=== PATIENT | male | born 1940 | race Caucasian/White ===

== ENCOUNTER 2016-08-28 07:45 | Day surgery (SDC) | payer MEDICARE, BC ==
[2016-08-26 10:16] VITALS: BMI 35.2
[~2016-08-28 07:45] MED LIST: LACTATED RINGERS 1,000 ML IV SCH
[2016-08-28 08:03] VITALS: RESP 16; TEMP 97.1
[2016-08-28] MEDS ORDERED: LIDOCAINE 1% 20 ML VIAL (10MG/ML) FOR IV START INTRADERMA ONE (08:08)
[2016-08-28 08:13] LABS: Glucose,Whole Blood 112 mg/dL (75-99)
[2016-08-28] MEDS ORDERED: PROPOFOL 10 MG/ML 20 ML VIAL IV ONE (08:43)
[2016-08-28] MEDS ORDERED: LIDOCAINE 1% INJ 10MG/ML (20 ML MDV) ONE (08:43)
--- NOTE | 2016-08-28 09:01 | P.PCN ---
Date of Procedure: 08/28/16 Procedure(s) Performed: BRIEF HISTORY: Patient is a 76-year-old pleasant white male, scheduled for an elective colonoscopy as a part of screening for colorectal neoplasia. PROCEDURE PERFORMED: Colonoscopy with biopsy. PREOPERATIVE DIAGNOSIS: Training for colon cancer. IV sedation per Anesthesia. PROCEDURE: After informed consent was obtained, the patient, was brought into the endoscopy unit. IV conscious sedation was administered by Anesthesia under continuous monitoring. Initially the Olympus CF-160 flexible video colonoscope was then inserted in the rectum, gradually advanced into the cecum without any difficulty. Careful examination was performed as the scope was gradually being withdrawn. Ileocecal valve and the appendiceal orifice were visualized and appeared normal. Prep was excellent. Mucosa of the cecum appeared normal. In the ascending colon there were 2 polyps measuring 5 mm in size both of which were removed by biopsy. Rest of the, ascending colon, transverse colon, descending colon, sigmoid colon, and rectum appeared normal. Retroflexion was performed in the rectum and no lesions were seen. The patient tolerated the procedure well. IMPRESSION: 5 mm 2 ascending colon polyps status post removal by biopsy. Rest of the colon appeared normal. RECOMMENDATIONS: Findings of this examination were discussed with the patient well as his family. He was advised to follow with the biopsy results. If the biopsy shows a tubular adenoma he can have a repeat colonoscopy in 3-5 years
[2016-08-28 09:24] VITALS: BP 129/61; PULSE 62
== END 2016-08-28 09:40 | disposition home or self-care (01) ==
LOC: ORWHC2ENDO 07:45
PROVIDERS: ATTEND Internal Medicine Gastroenterology
DX: Z12.11 Encounter for screening for malignant neoplasm of colon (principal); D12.2 Benign neoplasm of ascending colon; I25.10 Atherosclerotic heart disease of native coronary artery without angina pectoris; I25.2 Old myocardial infarction; I10 Essential (primary) hypertension; E78.5 Hyperlipidemia, unspecified; E11.9 Type 2 diabetes mellitus without complications; I69.951 Hemiplegia and hemiparesis following unspecified cerebrovascular disease affecting right dominant side; Z79.84 Long term (current) use of oral hypoglycemic drugs; Z79.899 Other long term (current) drug therapy; Z79.82 Long term (current) use of aspirin
CPT/HCPCS: 88305; 45380; J2001; J2704

== ENCOUNTER → 2019-06-11 | Outpatient (CLI) | payer MEDICARE ==
--- NOTE | 2019-06-11 13:55 | US ---
EXAMINATION TYPE: US venous doppler duplex UE RT DATE OF EXAM: 06/11/2019 COMPARISON: NONE CLINICAL HISTORY: R22.1Swelling rt upper limb. Swelling right hand SIDE PERFORMED: Right Grayscale, color doppler, spectral doppler imaging performed of the deep veins of the right upper ext remity. There is normal flow, compressibility and vascular waveforms. Right Arm: Negative for DVT IMPRESSION: No sonographic evidence of deep venous thrombosis of the right upper extremity.
== END | disposition home or self-care (01) ==
LOC: RADUSWWP 12:49
PROVIDERS: ATTEND Family Medicine
DX: R22.31 Localized swelling, mass and lump, right upper limb (principal); Z91.048 Other nonmedicinal substance allergy status; Z88.1 Allergy status to other antibiotic agents; Z88.0 Allergy status to penicillin; Z88.8 Allergy status to other drugs, medicaments and biological substances

== ENCOUNTER → 2019-06-14 | Outpatient (CLI) | payer MEDICARE ==
--- NOTE | 2019-06-14 08:17 | CT ---
EXAMINATION TYPE: CT chest wo con DATE OF EXAM: 06/14/2019 COMPARISON: None HISTORY: SOB CT DLP: 557.[address] of the chest was performed with lung and mediastinal window settings submitted. The la ck of contrast limits evaluation of the vascular, mediastinal and parenchymal structures including th e upper abdomen. LUNGS: The lungs are clear and free of infiltrate. No atelectasis. No pulmonary nodule or mass is de tected. No pleural effusion. No CT evidence of interstitial lung disease. MEDIASTINUM/JER: Thoracic aorta is of normal caliber with limited evaluation given lack of contrast . The heart is enlarged. No evidence for mediastinal mass. No lymph nodes greater than 1cm. UPPER ABDOMEN: Small layering gallstones are noted within the gallbladder lumen. OTHER: No significant other abnormality. IMPRESSION: 1. No significant abnormality to account for the patient's symptoms.
== END | disposition home or self-care (01) ==
LOC: RADCTMAIN 07:48
PROVIDERS: ATTEND Family Medicine
DX: R05 Cough (principal); R06.02 Shortness of breath; Z88.0 Allergy status to penicillin; Z88.3 Allergy status to other anti-infective agents; Z88.1 Allergy status to other antibiotic agents; Z88.8 Allergy status to other drugs, medicaments and biological substances
CPT/HCPCS: 71250

== ENCOUNTER 2019-07-25 23:54 | Inpatient (IN) | payer MEDICARE ==
--- NOTE | 2019-07-26 00:05 | ED ---
Altered Mental Status HPI - General Stated Complaint: Seizure Time Seen by Provider: 07/26/19 00:02 - History of Present Illness Initial Comments: Oliver a 79-year-old gentleman who presents the ER today via ambulance as a transfer from an outside facility. History is provided by the and review of medical record. Oliver has a history of multiple strokes the past with right-sided deficits. reports she left the home around 4:30 or 4:45 PM, G eorge was in his usual state of health at that time. When she returned home closer to 8 PM she found Oliver laying on the ground and had significant shaking of his right arm and was unable to respond verbally to her. 911 was called and he was transferred to another hospital where it was concern for seizure Zaida he was treated with Ativan and 500 mg of Keppra. Labs had mild abnormalities which were reviewed CT head showed worsening of a chronic infarct. Due to patient medical care in this facility and the other facility not having neuro available for evaluation patient was transferred here for neuro evaluation. - Related Data Home Medications Medication Instructions Recorded Confirmed Aspirin 325 mg PO DAILY 08/26/16 08/28/16 Cetirizine HCl 10 mg PO DAILY 08/26/16 08/28/16 Felodipine [Felodipine ER] 10 mg PO QAM 08/26/16 08/28/16 Fenofibrate 160 mg PO DAILY 08/26/16 08/28/16 Hydrochlorothiazide 25 mg PO DAILY 08/26/16 08/28/16 Metoprolol Succinate [Toprol XL] 100 mg PO QAM 08/26/16 08/28/16 Metoprolol Tartrate 25 mg PO QAM 08/26/16 08/28/16 Pitavastatin Calcium [Livalo] 4 mg PO QAM 08/26/16 08/28/16 Ramipril [Altace] 10 mg PO DAILY 08/26/16 08/28/16 Ubidecarenone [Co Q-10] 100 mg PO DAILY 08/26/16 08/28/16 glipiZIDE [Glucotrol] 5 mg PO AC-BID 08/26/16 08/28/16 metFORMIN HCL [Glucophage] 500 mg PO BID 08/26/16 08/28/16 Allergies Allergy/AdvReac Type Severity Reaction Status Date / Time atorvastatin Allergy pain Verified 08/26/16 10:04 clopidogrel [From Plavix] Allergy bleeding Verified 08/26/16 10:04 erythromycin base Allergy Dyspnea Verified 08/26/16 10:04 iodine Allergy Dyspnea Verified 08/26/16 10:04 Penicillins Allergy Rash/Hives, Verified 08/26/16 10:04 chest tightness sitagliptin [From Januvia] Allergy "bad runny Verified 08/26/16 10:04 nose" ticagrelor [From Brilinta] Allergy Chest Verified 08/26/16 10:04 Pain/SOB Review of Systems ROS Statement: Those systems with pertinent positive or pertinent negative responses have been documented in the HPI. ROS Other: All systems not noted in ROS Statement are negative. Past Medical History Past Medical History: Coronary Artery Disease (CAD), Cancer, CVA/TIA, Diabetes Mellitus, Hyperlipidemia, Hypertension, Myocardial Infarction (NC), Osteoarthritis (OA) Additional Past Medical History / Comment(s): TIA x 5- rt sided weakness from, NC x 2, varicose veins, diverticulitis, hx skin cancer Last Myocardial Infarction Date:: 2004 approx History of Any Multi-Drug Resistant Organisms: None Reported Past Surgical History: Coronary Bypass/CABG, Heart Catheterization, Hernia Repair Additional Past Surgical History / Comment(s): stents in left carotid artery, CABG approx 2004, skin cancer removed from back, colonoscopy, Past Anesthesia/Blood Transfusion Reactions: No Reported Reaction Smoking Status: Former smoker - Past Family History Brother(s) Family Medical History: Cancer General Exam - General Exam Comments Initial Comments: Physical Exam GENERAL: Chronically ill appearing HENT: Normocephalic, Atraumatic. EYES: PERRL, EOMI PULMONARY: Unlabored respirations. CARDIOVASCULAR: RRR ABDOMEN: Non-distended SKIN: Skin is clear with no lesions or rashes and otherwise unremarkable. : Deferred NEUROLOGIC: Alert to voice, responds to name, mumbled responses MUSCULOSKELETAL: generalized weakness, weakness and tremor of right upper extremity PSYCHIATRIC: Unable to assess Course Vital Signs 07/26/19 07/26/19 07/26/19 00:01 01:18 02:05 Temperature 98.6 F 98 F Pulse Rate 86 82 Respiratory 18 18 20 Rate Blood Pressure 167/74 158/72 Blood Pressure 176/71 [Left Arm] O2 Sat by Pulse 96 95 Oximetry Medical Decision Making - Medical Decision Making The patient was seen and evaluated, history was obtained from the and review of medical record Repeat labs were ordered Upon evaluation patient is awake, responsive his voice has mumbled responses, has a tremor but no obvious seizure activity Patient was treated with only 500 mg of Keppra, and additional 1 g was ordered her seizure prophylaxis Repeat labs reveal an improvement in kidney function, resolution of lactic acidosis. Only mild elevation of creatinine kinase. Patient continued to rest, respond to his name have slurred speech but otherwise no change in condition no seizures in the emergency department. Patient care was discussed with the [facility] emergency department physician group who accepts the admission with a consult to neurology to be placed. - Lab Data Result diagrams: 07/26/19 00:37 07/26/19 00:37 Lab Results 07/26/19 07/26/19 07/26/19 Range/Units 00:37 00:37 00:37 WBC 9.7 (3.8-10.6) k/uL RBC 4.17 L (4.30-5.90) m/uL Hgb 11.9 L (13.0-17.5) gm/dL Hct 36.9 L (39.0-53.0) % MCV 88.5 (80.0-100.0) fL MCH 28.5 (25.0-35.0) pg MCHC 32.2 (31.0-37.0) g/dL RDW 13.7 (11.5-15.5) % Plt Count 214 (150-450) k/uL Neutrophils % 82 % Lymphocytes % 12 % Monocytes % 4 % Eosinophils % 1 % Basophils % 1 % Neutrophils # 8.0 H (1.3-7.7) k/uL Lymphocytes # 1.2 (1.0-4.8) k/uL Monocytes # 0.4 (0-1.0) k/uL Eosinophils # 0.1 (0-0.7) k/uL Basophils # 0.1 (0-0.2) k/uL Sodium 141 (137-145) mmol/L Potassium 4.0 (3.5-5.1) mmol/L Chloride 108 H (98-107) mmol/L Carbon Dioxide 25 (22-30) mmol/L Anion Gap 8 mmol/L BUN 31 H (9-20) mg/dL Creatinine 1.64 H (0.66-1.25) mg/dL Est GFR (CKD-EPI)AfAm 46 (>60 ml/min/1.73 sqM) Est GFR (CKD-EPI)NonAf 40 (>60 ml/min/1.73 sqM) Glucose 146 H (74-99) mg/dL Plasma Lactic Acid Facundo 0.8 (0.7-2.0) mmol/L Calcium 8.9 (8.4-10.2) mg/dL Magnesium 1.8 (1.6-2.3) mg/dL Total Bilirubin 0.5 (0.2-1.3) mg/dL AST 28 (17-59) U/L ALT 14 (4-49) U/L Alkaline Phosphatase 89 (38-126) U/L Creatine Kinase 281 H (55-170) U/L Total Protein 6.6 (6.3-8.2) g/dL Albumin 3.5 (3.5-5.0) g/dL - EKG Data -: EKG Interpreted by Me EKG Comments: EKG was obtained due to complaint of possible seizure, EKG was obtained at 1:06 AM, rate is 84 rhythm is sinus, first-degree AV block. KS 206, care is 94, QTC 427. No obvious ST elevations or depressions no evidence of acute infarction. PVCs noted. Disposition Clinical Impression: Seizure-like activity, History of stroke, Weakness of right side of body, Tremor Disposition: ADMITTED IP TO THIS HOSP Condition: Serious Is patient prescribed a controlled substance at d/c from ED?: No
[2019-07-26] MEDS ORDERED: levETIRAcetam IV 1,000 MG in SALINE 1 100ML.BAG IVPB ONE (00:30)
[2019-07-26] MEDS: SODIUM CHLORIDE 0.9% 1,000 ML IV STA ×2 (00:53→03:48)
[2019-07-26 00:58] LABS: Basophils # (A) 0.1 k/uL (0-0.2); Basophils % (A) 1 %; Eosinophils # (A) 0.1 k/uL (0-0.7); Eosinophils % (A) 1 %; HCT 36.9 % (39.0-53.0); HGB 11.9 gm/dL (13.0-17.5); Lymphocytes # (A) 1.2 k/uL (1.0-4.8); Lymphocytes % (A) 12 %; MCH 28.5 pg (25.0-35.0); MCHC 32.2 g/dL (31.0-37.0); MCV 88.5 fL (80.0-100.0); Mean Platelet Volume 7.6; Monocytes # (A) 0.4 k/uL (0-1.0); Monocytes % (A) 4 %; Neutrophils % (A) 82 %; Platelet Count 214 k/uL (150-450); RBC 4.17 m/uL (4.30-5.90); RDW 13.7 % (11.5-15.5); WBC 9.7 k/uL (3.8-10.6)
[2019-07-26 01:13] LABS: Albumin 3.5 g/dL (3.5-5.0); Calcium 8.9 mg/dL (8.4-10.2); Magnesium 1.8 mg/dL (1.6-2.3); Total Bilirubin 0.5 mg/dL (0.2-1.3); Total Protein 6.6 g/dL (6.3-8.2)
[2019-07-26] MEDS ORDERED: LORazepam 2 MG/ML INJ IV PRN (01:18)
[2019-07-26] MEDS ORDERED: NALOXONE 0.4 MG/ML 1 ML VIAL IV PRN (01:18)
--- NOTE | 2019-07-26 02:57 | P.HPIM ---
History of Present Illness H&P Date: 07/26/19 The patient is a 79 yo M with a PMH of CAD s/p CABG, multiple CVAs w/ residual R sided weakness, HTN, HLD, and Type 2 DM presented to the ED as a transfer from [facility] after a possible seizure. The history is provided by the at the bedside. She reports that the patient was in his usual state of health until this morning when he had a fall at around 8:30 am. The was able to get the patient up with assistance from their neighbor. She noted that the patient had some difficulty with speech since that time. The notes that she had subsequently gone out later in the day and upon returning home at 8:30 pm, she found the patient on the floor, shaking uncontrollably. She denied any previous history of seizures. She denied noticing urinary incontinenceShe activated EMS and the patient was taken to [facility] where he was given multiple doses of Ativan along with 500 mg of Keppra. The patient was noted to not be in status epilepticus and was transferred to [place] ED due to lack of neurology coverage. The patient underwent an extensive evaluation in the ED at [facility] which revealed CT head w/ Large old L hemispheric infarct, increased from prior with chronic small vessel ischemia. Laboratory evaluation revealed a WBC cuont of 11.5, Hgb 12.3, platelets 235, Na 142, K 4.4, Cl 105, CO2 24, BUN 33, Cr 2.1, and glucose 168. The patient continues to be lethargic and was not answering questions appropriately. Review of Systems ROS unobtainable: due to mental status Past Medical History Past Medical History: Coronary Artery Disease (CAD), Cancer, CVA/TIA, Diabetes Mellitus, Hyperlipidemia, Hypertension, Myocardial Infarction ([place]), Osteoarthritis (OA) Additional Past Medical History / Comment(s): TIA x 5- rt sided weakness from, [place] x 2, varicose veins, diverticulitis, hx skin cancer Last Myocardial Infarction Date:: 2004 approx History of Any Multi-Drug Resistant Organisms: None Reported Past Surgical History: Coronary Bypass/CABG, Heart Catheterization, Hernia Repair Additional Past Surgical History / Comment(s): stents in left carotid artery, CABG approx 2004, skin cancer removed from back, colonoscopy, Past Anesthesia/Blood Transfusion Reactions: No Reported Reaction Smoking Status: Former smoker - Past Family History Brother(s) Family Medical History: Cancer Medications and Allergies Home Medications Medication Instructions Recorded Confirmed Type Aspirin 325 mg PO DAILY 08/26/16 08/28/16 History Cetirizine HCl 10 mg PO DAILY 08/26/16 08/28/16 History Felodipine [Felodipine ER] 10 mg PO QAM 08/26/16 08/28/16 History Fenofibrate 160 mg PO DAILY 08/26/16 08/28/16 History Hydrochlorothiazide 25 mg PO DAILY 08/26/16 08/28/16 History Metoprolol Succinate [Toprol XL] 100 mg PO QAM 08/26/16 08/28/16 History Metoprolol Tartrate 25 mg PO QAM 08/26/16 08/28/16 History Pitavastatin Calcium [Livalo] 4 mg PO QAM 08/26/16 08/28/16 History Ramipril [Altace] 10 mg PO DAILY 08/26/16 08/28/16 History Ubidecarenone [Co Q-10] 100 mg PO DAILY 08/26/16 08/28/16 History glipiZIDE [Glucotrol] 5 mg PO AC-BID 08/26/16 08/28/16 History metFORMIN HCL [Glucophage] 500 mg PO BID 08/26/16 08/28/16 History Allergies Allergy/AdvReac Type Severity Reaction Status Date / Time atorvastatin Allergy pain Verified 08/26/16 10:04 clopidogrel [From Plavix] Allergy bleeding Verified 08/26/16 10:04 erythromycin base Allergy Dyspnea Verified 08/26/16 10:04 iodine Allergy Dyspnea Verified 08/26/16 10:04 Penicillins Allergy Rash/Hives, Verified 08/26/16 10:04 chest tightness sitagliptin [From Januvia] Allergy "bad runny Verified 08/26/16 10:04 nose" ticagrelor [From Brilinta] Allergy Chest Verified 08/26/16 10:04 Pain/SOB Physical Exam Vitals: Vital Signs Temp Pulse Resp BP Pulse Ox 07/26/19 01:18 98 F 82 18 158/72 95 07/26/19 00:01 98.6 F 86 18 167/74 96 Intake and Output 07/25/19 07/25/19 07/26/19 14:59 22:59 06:59 Other: Weight 95.254 kg General: non toxic, no distress, appears at stated age, obese Derm: no unusual rashes/lesions no unusual ecchymoses, warm, dry Head: atraumatic, normocephalic, symmetric Eyes: EOMI, no lid lag, anicteric sclera, pupils equal round reactive to light ENT: Nose and ears atraumatic Neck: No thyromegaly, no cervical lymphadenopathy, trachea midline, supple Cardiovascular: S1S2 reg, no murmur, positive posterior tibial pulse bilateral, no edema, capillary refill less than 2 seconds Lungs: CTA bilateral, no rhonchi, no rales , no accessory muscle use Abdominal: soft, nontender to palpation, no guarding, no appreciable organomegaly, normal bowel sounds Ext: no gross muscle atrophy, muscle strength 3 out of 5 in all 4 extremities grossly, no contractures, opens eyes to verbal stimuli, following basic commands Neuro: Moving all extremities sponteously Psych: Responding to verbal stimuli and asking some questions Results CBC & Chem 7: 07/26/19 00:37 07/26/19 00:37 Labs: Abnormal Lab Results - Last 24 Hours (Table) 07/26/19 07/26/19 Range/Units 00:37 00:37 RBC 4.17 L (4.30-5.90) m/uL Hgb 11.9 L (13.0-17.5) gm/dL Hct 36.9 L (39.0-53.0) % Neutrophils # 8.0 H (1.3-7.7) k/uL Chloride 108 H (98-107) mmol/L BUN 31 H (9-20) mg/dL Creatinine 1.64 H (0.66-1.25) mg/dL Glucose 146 H (74-99) mg/dL Creatine Kinase 281 H (55-170) U/L Assessment and Plan Plan: New onset seizure disorder -Neurology consult -C/w Keppra -Seizure, aspirations, and fall precautions Leukocytosis -No signs of active infection at this time -Likely due to acute stress TAWANNA -C/w IVFs and monitor BMP Chronic conditions: HTN, HLD, CAD s/p CABG, DM -C/w home meds -KENDALL with FS DVT prophylaxis -Heparin The patient is admitted with an anticipated greater than 2 midnight stay for evaluation of new onset seizure disorder CODE STATUS: Full Code Discussed with: Patient Anticipated discharge date: 2-[address]: Home A total of 40 minutes was spent on the care of this complex patient more than 50% of the time was spent in counseling and care coordination.
[2019-07-26 06:53] LABS: Glucose,Whole Blood 159 mg/dL (75-99)
[2019-07-26 07:28] LABS: HCT 37.3 % (39.0-53.0); HGB 12.4 gm/dL (13.0-17.5); MCH 29.2 pg (25.0-35.0); MCHC 33.3 g/dL (31.0-37.0); MCV 87.9 fL (80.0-100.0); Mean Platelet Volume 8.3; Platelet Count 177 k/uL (150-450); RBC 4.25 m/uL (4.30-5.90); RDW 13.7 % (11.5-15.5); WBC 8.5 k/uL (3.8-10.6)
[2019-07-26 08:01] LABS: Potassium 3.9 mmol/L (3.5-5.1)
[2019-07-26] MEDS: SODIUM CHLORIDE 0.9% 1,000 ML IV SCH ×2 (08:24→10:38)
[2019-07-26] MEDS: HEPARIN SODIUM,PORCINE 5,000 UNIT/ML 1 ML VIAL SQ SCH ×2 (08:24→15:22)
[2019-07-26] MEDS: INSULIN ASPART (NovoLOG) 100 UNIT/ML VIAL SQ SCH ×3 (08:25→18:11)
[2019-07-26 12:08] LABS: Glucose,Whole Blood 126 mg/dL (75-99)
--- NOTE | 2019-07-26 15:31 | P.PN ---
Subjective Progress Note Date: 07/26/19 Principal diagnosis: Patient is seen and examined as a follow-up for new onset seizure home Patient seen and examined today no new complaints reports residual right-sided weakness from before. Denies any trouble swallowing denies any chest pain or trouble breathing denies any headaches at this time. He denies any tongue biting during the episodes of shakiness. Patient doesn't remember much about the events from yesterday Objective - Vital Signs Vital signs: Vital Signs Temp 97.9 F 07/26/19 07:00 Pulse 77 07/26/19 07:00 Resp 16 07/26/19 07:00 BP 183/82 07/26/19 07:00 Pulse Ox 93 L 07/26/19 07:00 Intake & Output 07/25/19 07/26/19 07/26/19 18:59 06:59 18:59 Weight 95.254 kg Other: Voiding Method Diaper # Voids 2 2 - Exam Constitutional: vital signs stable, Not in acute distress, pleasant, patient minimally talking Eyes: Pupils equal round reactive to light and accomodation, anicteric sclerae Lungs: Clear to auscultation bilaterally, clear to percussion, normal respiratory effort no use of accessory muscles Cardiovascular: Regular rate and rhythm, no murmurs, no gallops, no rubs, no peripheral edema Gastrointestinal: Soft, no tenderness to palpation, no palpable hepatosplenomegally, bowel sounds positive, no abdominal wall hernias Skin: Unremarkable temperature, tone, texture, and turgor, no induration or subcutaneous nodule, no rashes, no lesions, no ulcers Extremities: No digital cyanosis or clubbing, peripheral pulses palpable and equal over bilateral radial arteries and dorsalis pedis artery, no calf muscle tenderness Psych: Alert, oriented to place, person and time, appropriate affect, intact judgment Neuro: Cranial nerves II-XII grossly intact, no focal sensory deficits to touch - Labs CBC & Chem 7: 07/26/19 07:00 07/26/19 07:00 Labs: Abnormal Lab Results - Last 24 Hours (Table) 07/26/19 07/26/19 07/26/19 Range/Units 00:37 00:37 06:50 RBC 4.17 L (4.30-5.90) m/uL Hgb 11.9 L (13.0-17.5) gm/dL Hct 36.9 L (39.0-53.0) % Neutrophils # 8.0 H (1.3-7.7) k/uL Chloride 108 H (98-107) mmol/L BUN 31 H (9-20) mg/dL Creatinine 1.64 H (0.66-1.25) mg/dL Glucose 146 H (74-99) mg/dL POC Glucose (mg/dL) 159 H (75-99) mg/dL Creatine Kinase 281 H (55-170) U/L 07/26/19 07/26/19 07/26/19 Range/Units 07:00 07:00 11:56 RBC 4.25 L (4.30-5.90) m/uL Hgb 12.4 L (13.0-17.5) gm/dL Hct 37.3 L (39.0-53.0) % Neutrophils # (1.3-7.7) k/uL Chloride 108 H (98-107) mmol/L BUN 27 H (9-20) mg/dL Creatinine 1.40 H (0.66-1.25) mg/dL Glucose 164 H (74-99) mg/dL POC Glucose (mg/dL) 126 H (75-99) mg/dL Creatine Kinase (55-170) U/L Assessment and Plan Assessment: 79-year-old male with hypertension currently with elevated blood pressure, di abetes mellitus with controlled blood sugar. history of CAD and CVA., Patient comes in with concerns regarding seizures. Patient reports that patient has residual weakness on the right side. She found him on the ground in his bedroom in the morning yesterday at 8:30 in the morning she reports that he was down for 1 hour trying to get up but he couldn't he was moaning she assisted him to get up she felt that his speech didn't sound normal but she didn't think much about it and otherwise all day he seemed to be at his baseline except for his speech. And then she left the house around 5 PM when she came back 3 hours later she found him on the ground shaking without any vigorous movements but shaking all 4 extremities no bladder or bowel incontinence no tongue biting she was concerned about a seizure and took him to the hospital he went to a different facility but transferred to our facility due to lack of neurology coverage. Computed tomography scan of the brain suggested large left hemisphere old infarct, patient was evaluated by neurology that were facility recommended obtaining MRI of the brain and EEG pending further recommendations. Plan: Possible seizure versus stroke Neurochecks Neurology following, recommendations for MRI and EEG pending Continue with Kenevaehra per neuro recommendations Seizure and fall precautions PT/OT evaluation Continue with aspirin and Lipitor Hypertension, urgency Allow for permissive hypertension for possibility of underlying stroke Reintroduce blood pressure medications in the morning of 07/27 Home blood pressure pressure medications were verified. Patient on metoprolol 125 mg daily Felodipine 10 mg daily Hydralazine 100 mg twice a day Acute kidney injury Continue with IV fluid hydration Monitor renal function Nonoliguric Diabetes mellitus Continue with insulin sliding scale Patient on basal dose of Levemir 12 units at home History of CVA/CAD/carotid stenosis status post left carotid endarterectomy DVT prophylaxis mechanical due to possibility of underlying stroke Discharge planning pending clinical course possibly home with home care. Follow-up morning labs Follow-up neurology recommendations Patient passed swallow eval will start patient on heart healthy diet
[2019-07-26 15:58] LABS: Appearance,Urine Clear (Clear); Bilirubin,Urine Negative (Negative); Blood,Urine Small (Negative); Color,Urine Light Yellow; Glucose,Urine (UA) Negative (Negative); Hyaline Casts,Urine 1 /lpf (0-2); Ketones,Urine Negative (Negative); Leukocyte Esterase,Urine Negative (Negative); Mucus,Urine Rare /hpf; Nitrite,Urine Negative (Negative); PH, Urine 6.5 (5.0-8.0); Protein,Urine 2+ (Negative); RBC,Urine 1 /hpf (0-5); Specific Gravity,Urine 1.012 (1.001-1.035); Urobilinogen,Urine <2.0 mg/dL (<2.0); WBC,Urine 1 /hpf (0-5)
[2019-07-26 17:22] LABS: Glucose,Whole Blood 108 mg/dL (75-99)
--- NOTE | 2019-07-26 20:35 | MR ---
MR brain without contrast HISTORY: Speech difficulty Multiplanar multisequence imaging through the brain and correlated to CT brain 07/25/2019 from outside institution There is no restricted diffusion. The areas of encephalomalacia in the left frontal and parietal lobe s, abnormal periventricular white matter shows corresponding abnormal signal. No hemorrhage or hydroc ephalus. Scattered and confluent hyperintensity and inversion recovery T2-weighted sequences present in the periventricular locations, subcortical white matter on the right. There are normal vascular fl ow voids. The corpus callosum, pituitary, cervical medullary junction, cerebellopontine angles are within isabell l limits. Orbits show symmetric appearance. There is extensive sinus disease bilateral maxillary sinu ses, correlate for possible sinus mycetoma. IMPRESSION: Chronic cerebrovascular accidents. Chronic small vessel ischemia and age-related atrophy. Extensive sinusitis as described.
[2019-07-26 20:59] LABS: Glucose,Whole Blood 151 mg/dL (75-99)
--- NOTE | 2019-07-26 21:02 | P.CNNES ---
History of Present Illness Consult date: 07/26/19 Reason for Consult: Seizure History of Present Illness: HISTORY OF PRESENT ILLNESS: Thank you for allowing me to evaluate Mr. Oliver Weiner. Mr. 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 At the OSH, patient was given Ativan and Keppra 500mg. CT Head at OSH showed worsening chronic infarct. at bedside for corroborating information. states that ever since his strokes, he's had R-sided weakness and some sensation deficit along with speech difficult. His speech had improved, but since yesterday, it has regressed. states that pt fell yesterday and needed her neighbor's help to get him back to his bed. She had left for a bowling game, and when she came home, patient was on the floor again, and this time, he was "shaking all over." Patient did not lose consciousness, and there was no tongue biting or urinary/bowel incontinence. Denies any recent sickness, fever, headache, nausea, vomiting, diarrhea, coughing. Last stroke was about 4-5 years ago. Patient had been on ASA, plavix and Brilinta, but patient had an allergic reaction to them with hives and some with difficulty breathing. PAST MEDICAL HISTORY: multiple TIA/strokes with residual R-sided deficits, CAD, DM, HLD, HTN, [place], osteoarthritis, skin cancer PAST SURGICAL HISTORY: CABG, heart cath, hernia repair, stents in L carotid artery, skin cancer removal from back HOME MEDICATIONS: metoprolol, hydralazine, glipizide, lasix, fenofibrate, felodipine ALLERGIES: Atorvastatin, plavix, erythromycin, iodine, PCNs, sitagliptin, ticagrelor SOCIAL HISTORY: Former smoker FAMILY HISTORY: Brother with cancer REVIEW OF SYSTEMS: The 14 systems are reviewed and no additional points are identified compared to the review of systems documented history and physical PHYSICAL EXAMINATION: VITAL SIGNS: T 97.9 HR 77 RR 16 O2 sat 93% on RA BP 183/82 GEN.: NAD HEENT: NCAT, sclera without icterus NECK: Supple SKIN AND EXTREMITIES: Warm to touch, no edema NEURO: MENTAL STATUS: Patient alert and oriented to self, able to choose hospital from a list of three. Difficulty with time and naming the current president. Patient able to name and repeat. Slurred speech and expressive aphasia. No right and left disorientation CRANIAL NERVES II THROUGH XII: II: Pupils are equal and reactive to light symmetrically. Visual andrade are intact to confrontation. III, IV, : No ptosi s. Extraocular movements full. V: Difficult to assess as patient's answers are not consistent VII. R facial droop. IX, X: Symmetric palate elevation. XI: Shoulder shrug intact. XII: Tongue midline without fasciculation or atrophy. MOTOR: Increased tone in RUE. No tremor. LUE strength is at least 4/5. RUE patient barely able to lift his forearm against gravity but minimally. b/l RLE/LLE not as agile as LUE. Appears that his LLE is slightly stronger than RLE on plantar/dorsiflexion but was unable to perform a more accurate exam SENSORY: Decreased to light touch in RUE and RLE. REFLEXES: 2+ throughout. R toes upgoing. L toes difficult to assess COORDINATION: Finger to nose with LUE intact. No dysmetria. GAIT: deferred DIAGNOSTIC TESTING: LABORATORY: WBC 8.5 Hgb 12.4 Platelet 177 Na 142 K 3.9 Cl 108 CO2 26 BUN 27 Cr 1.40 Glucose 164 AST 28 ALT 14 AlkPhos 89 CK 281 IMAGING: CT Head w/o contrast on 07/25/2019 from OSH: Reportedly with worsening chronic infarct MRI brain w/o contrast 07/26/2019: Encephalomalacia of L frontal and parietal lobes, likely old stroke. Chronic ischemic disease. ASSESSMENT: 79 year-old R-handed man with PMhx of multiple TIA/strokes with residual R-sided deficits, CAD, DM, HLD, HTN, [place], osteoarthritis, skin cancer, transferred from OSH for work-up of seizure-like episode. Patient with risk factor for seizure, which include his history of stroke that per history and symptoms, likely was a cortical infarct. No head imaging available here at this time. Patient's last stroke was 4-5 years ago. Patient not on any antiplatelet therapy due to allergic reaction. MRI brain obtained, which showed encephalomalacia in L frontal and parietal lobe along with chronic ischemic changes. No new strokes. Patient with high risk for seizure. RECOMMENDATIONS: 1. Will obtain routine EEG 2. Will start patient on Keppra 750mg BID 3. Patient will need outpatient Neurology follow up within 3-4 weeks of discharge 4. Seizure precautions discussed with family 5. ED precautions discussed with family 6. If EEG unremarkable, patient stable for discharge from neurological perspective. 7. Neurology will sign off at this time. Please contact with additional questions or concerns. Past Medical History Past Medical History: Coronary Artery Disease (CAD), Cancer, CVA/TIA, Diabetes Mellitus, Hyperlipidemia, Hypertension, Myocardial Infarction ([place]), Osteoarthritis (OA) Additional Past Medical History / Comment(s): TIA x 5- rt sided weakness from, WI x 2, varicose veins, diverticulitis, hx skin cancer Last Myocardial Infarction Date:: 2004 approx History of Any Multi-Drug Resistant Organisms: None Reported Past Surgical History: Coronary Bypass/CABG, Heart Catheterization, Hernia Repair Additional Past Surgical History / Comment(s): stents in left carotid artery, C ABG approx 2004, skin cancer removed from back, colonoscopy, Past Anesthesia/Blood Transfusion Reactions: No Reported Reaction Smoking Status: Former smoker - Past Family History Brother(s) Family Medical History: Cancer Medications and Allergies Home Medications Medication Instructions Recorded Confirmed Type Felodipine [Felodipine ER] 10 mg PO QAM 08/26/16 07/26/19 History Fenofibrate 160 mg PO DAILY 08/26/16 07/26/19 History Metoprolol Succinate [Toprol XL] 100 mg PO QAM 08/26/16 07/26/19 History Ramipril [Altace] 10 mg PO DAILY 08/26/16 07/26/19 History Ubidecarenone [Co Q-10] 100 mg PO DAILY 08/26/16 07/26/19 History glipiZIDE [Glucotrol] 5 mg PO DAILY 08/26/16 07/26/19 History Cholecalciferol [Vitamin D3 (25 1,000 unit PO DAILY 07/26/19 07/26/19 History Mcg = 1000 Iu)] Furosemide [Lasix] 20 mg PO DAILY 07/26/19 07/26/19 History Insulin Glargine,Hum.rec.anlog 12 units SQ HS 07/26/19 07/26/19 History [Lantus Solostar] Loratadine [Claritin] 10 mg PO DAILY 07/26/19 07/26/19 History Metoprolol Succinate [Toprol XL] 100 mg PO DAILY 07/26/19 07/26/19 History NIFEdipine [NIFEdipine ER] 90 mg PO DAILY 07/26/19 07/26/19 History hydrALAZINE HCL [Apresoline] 100 mg PO DAILY 07/26/19 07/26/19 History Allergies Allergy/AdvReac Type Severity Reaction Status Date / Time atorvastatin Allergy pain Verified 08/26/16 10:04 clopidogrel [From Plavix] Allergy bleeding Verified 08/26/16 10:04 erythromycin base Allergy Dyspnea Verified 08/26/16 10:04 iodine Allergy Dyspnea Verified 08/26/16 10:04 Penicillins Allergy Rash/Hives, Verified 08/26/16 10:04 chest tightness sitagliptin [From Januvia] Allergy "bad runny Verified 08/26/16 10:04 nose" ticagrelor [From Brilinta] Allergy Chest Verified 08/26/16 10:04 Pain/SOB Physical Examination - Vital Signs Vital Signs: Vital Signs Temp Pulse Pulse Resp BP BP Pulse Ox 07/26/19 07:00 97.9 F 77 16 183/82 93 L 07/26/19 02:49 98.6 F 74 17 176/71 93 L 07/26/19 02:05 20 176/71 07/26/19 01:18 98 F 82 18 158/72 95 07/26/19 00:01 98.6 F 86 18 167/74 96 Intake and Output 07/25/19 07/26/19 07/26/19 22:59 06:59 14:59 Other: Voiding Method Diaper # Voids 2 Weight 95.254 kg Results - Laboratory Findings CBC and BMP: 07/26/19 07:00 07/26/19 07:00 Abnormal Lab Findings: Abnormal Labs 07/26/19 07/26/19 07/26/19 00:37 00:37 06:50 RBC 4.17 L Hgb 11.9 L Hct 36.9 L Neutrophils # 8.0 H Chloride 108 H BUN 31 H Creatinine 1.64 H Glucose 146 H POC Glucose (mg/dL) 159 H Creatine Kinase 281 H 07/26/19 07/26/19 07:00 07:00 RBC 4.25 L Hgb 12.4 L Hct 37.3 L Neutrophils # Chloride 108 H BUN 27 H Creatinine 1.40 H Glucose 164 H POC Glucose (mg/dL) Creatine Kinase
[2019-07-26] MEDS: LISINOPRIL 20 MG TAB PO SCH (21:24)
[2019-07-26] MEDS: NIFEdipine XL 90 MG TAB.ER.24 PO SCH (21:24)
[2019-07-26] MEDS: INSULIN DETEMIR (LEVEMIR) 100 UNIT/ML SYR SQ SCH (21:25)
[2019-07-27] MEDS ORDERED: hydrALAZINE HCL 25 MG TAB PO STA (02:34)
[2019-07-27] MEDS: SODIUM CHLORIDE 0.9% 1,000 ML IV SCH ×3 (03:00→20:37)
[2019-07-27 07:23] LABS: Glucose,Whole Blood 117 mg/dL (75-99)
[2019-07-27] MEDS: INSULIN ASPART (NovoLOG) 100 UNIT/ML VIAL SQ SCH ×4 (07:29→21:12)
[2019-07-27] MEDS: METOPROLOL SUCCINATE (ER) 100 MG TAB.ER.24H PO SCH (08:24)
[2019-07-27] MEDS: NIFEdipine XL 90 MG TAB.ER.24 PO SCH (08:25)
[2019-07-27] MEDS: hydrALAZINE HCL 50 MG TAB PO SCH ×2 (08:25→21:14)
[2019-07-27] MEDS: LISINOPRIL 20 MG TAB PO SCH (08:25)
[2019-07-27] MEDS: METOPROLOL SUCCINATE (ER) 25 MG TAB.ER.24H PO SCH (08:25)
[2019-07-27] MEDS: amLODIPine 10 MG TAB PO SCH (08:25)
[2019-07-27] MEDS ORDERED: METOPROLOL SUCCINATE (ER) 100 MG TAB.ER.24H PO SCH (09:00)
[2019-07-27 11:39] LABS: Glucose,Whole Blood 142 mg/dL (75-99)
--- NOTE | 2019-07-27 15:38 | P.PN ---
Progress Note - Text Progress Note Date: 07/27/19 SUBJECTIVE/INTERVAL EVENTS: No acute overnight events Pt's speech is much clearer today than yesterday. PHYSICAL EXAMINATION: VITAL SIGNS: T 98.4 HR 76 RR 17 BP 183/77 O2 sat 96% on RA GEN.: NAD HEENT: NCAT, sclera without icterus NECK: Supple SKIN AND EXTREMITIES: Warm to touch, no edema NEURO: MENTAL STATUS: Patient alert and oriented to self, place and time. Unable to name the current president. Patient able to name and repeat. Mild slurred speech. No right and left disorientation CRANIAL NERVES II THROUGH XII: II: Pupils are equal and reactive to light symmetrically. Visual andrade are intact to confrontation. III, IV, : No ptosis. Extraocular movements full. V: Difficult to assess as patient's answers are not consistent VII. R facial droop. IX, X: Symmetric palate elevation. XI: Shoulder shrug intact. XII: Tongue midline without fasciculation or atrophy. MOTOR: Increased tone in RUE. No tremor. LUE strength is at least 4/5. RUE patient barely able to lift his forearm against gravity but minimally. b/l RLE/LLE not as agile as LUE. Appears that his LLE is slightly stronger than RLE on plantar/dorsiflexion but was unable to perform a more accurate exam SENSORY: Decreased to light touch in RUE and RLE. REFLEXES: 2+ throughout. R toes upgoing. L toes difficult to assess COORDINATION: Finger to nose with LUE intact. No dysmetria. GAIT: deferred DIAGNOSTIC TESTING: LABORATORY: WBC 8.5 Hgb 12.4 Platelet 177 Na 142 K 3.9 Cl 108 CO2 26 BUN 27 Cr 1.40 Glucose 164 AST 28 ALT 14 AlkPhos 89 CK 281 IMAGING: CT Head w/o contrast on 07/25/2019 from OSH: Reportedly with worsening chronic infarct MRI brain w/o contrast 07/26/2019: Encephalomalacia of L frontal and parietal lobes, likely old stroke. Chronic ischemic disease. ASSESSMENT: 79 year-old R-handed man with PMhx of multiple TIA/strokes with residual R-sided deficits, CAD, DM, HLD, HTN, [place], osteoarthritis, skin cancer, transferred from OSH for work-up of seizure-like episode. Patient with risk factor for seizure, which include his history of stroke that per history and symptoms, likely was a cortical infarct. No head imaging available here at this time. Patient's last stroke was 4-5 years ago. Patient not on any antiplatelet therapy due to allergic reaction. MRI brain obtained, which showed encephalomalacia in L frontal and parietal lobe along with chronic ischemic changes. No new strokes. Patient with high risk for seizure. MRI brain obtained, no acute stroke. RECOMMENDATIONS: 1. f/u routine EEG final read 2. c/w Keppra 750mg BID 3. Patient will need outpatient Neurology follow up within 3-4 weeks of discharge 4. Seizure precautions discussed with family 5. ED precautions discussed with family 6. If EEG unremarkable, patient stable for discharge from neurological perspective. 7. Neurology will sign off at this time. Please contact with additional questions or concerns.
--- NOTE | 2019-07-27 16:20 | P.PN ---
Subjective Progress Note Date: 07/27/19 Principal diagnosis: Patient is seen and examined as a follow-up for new onset seizure home Patient seen and examined today no new complaints residual right sided weakness unchanged from baseline. denies any chest pain or trouble breathing, denies any headache, nausea or vomting Objective - Vital Signs Vital signs: Vital Signs Temp 98.3 F 07/27/19 15:00 Pulse 75 07/27/19 15:00 Resp 17 07/27/19 15:00 BP 123/62 07/27/19 15:00 Pulse Ox 96 07/27/19 15:00 Intake & Output 07/26/19 07/27/19 07/27/19 18:59 06:59 18:59 Intake Total 800 1180 Balance 800 1180 Intake: IV 800 Sodium Chloride 0.9% 1, 800 000 ml @ 100 mls/hr IV . Q10H STA Rx#:[id number] Intake, IV Titration 600 Amount Sodium Chloride 0.9% 1, 600 000 ml @ 100 mls/hr IV . Q10H SOBEIDA Rx#:[id number] Oral 580 Other: Voiding Method Urinal Urinal Urinal Diaper Diaper Diaper # Voids 1 1 2 - Exam Constitutional: vital signs stable, Not in acute distress, pleasant, patient is more talkative today Eyes: Pupils equal round reactive to light Lungs: Clear to auscultation bilaterally, clear to percussion, normal respiratory effort Cardiovascular: Regular rate and rhythm, no murmurs, no gallops, no rubs, no peripheral edema Gastrointestinal: Soft, no tenderness to palpation, bowel sounds positive Extremities: No digital cyanosis peripheral pulses palpable and equal , no calf muscle tenderness Psych: Alert, oriented to place, person and time, appropriate affect, intact judgment right sided weakness unchanged from baseline, slightly decreased sensation over the right upper and lower extremities to light touch - Labs CBC & Chem 7: 07/26/19 07:00 07/26/19 07:00 Labs: Abnormal Lab Results - Last 24 Hours (Table) 07/26/19 07/26/19 07/27/19 Range/Units 17:02 20:58 07:11 POC Glucose (mg/dL) 108 H 151 H 117 H (75-99) mg/dL 07/27/19 Range/Units 11:28 POC Glucose (mg/dL) 142 H (75-99) mg/dL Assessment and Plan Assessment: 79-year-old male with hypertension currently with elevated blood pressure, diabetes mellitus with controlled blood sugar. history of CAD and CVA., Patient comes in with concerns regarding seizures. Patient reports that patient has residual weakness on the right side. She found him on the ground in his bedroom in the morning yesterday at 8:30 in the morning she reports that he was down for 1 hour trying to get up but he couldn't he was moaning she assisted him to get up she felt that his speech didn't sound normal but she didn't think much about it and otherwise all day he seemed to be at his baseline except for his speech. And then she left the house around 5 PM when she came back 3 hours later she found him on the ground shaking without any vigorous movements but shaking all 4 extremities no bladder or bowel incontinence no tongue biting she was concerned about a seizure and took him to the hospital he went to a different facility but transferred to our facility due to lack of neurology coverage. Computed tomography scan of the brain suggested large left hemisphere old infarct, patient was evaluated by neurology that were facility recommended obtaining MRI of the brain and EEG pending further recommendations. 07/27 Patient was updated regarding results of MRI of the brain which showed chronic small vessel disease still awaiting final EEG read Neurology signed off recommending discharge on current medications if EEG is unremarkable Currently on Keppra 750 twice a day Plan: Possible seizure versus stroke Neurochecks Neurology following, MRI showed chronic small vessel disease, still await final EEG report Continue with Keppra per neuro recommendations Seizure and fall precautions PT/OT evaluation Continue with aspirin and Lipitor Hypertension, urgency, resolved Allow for permissive hypertension for possibility of underlying stroke for only first 24 hours upon presentation Reintroduce blood pressure medications in the morning of 07/27 Home blood pressure pressure medications were verified. Patient on metoprolol 125 mg daily Felodipine 10 mg daily Hydralazine 100 mg twice a day Patient also on nifedipine 30 mg and ramipril 10 mg currently on hold Acute kidney injury Continue with IV fluid hydration Monitor renal function Nonoliguric Continue to hold ramipril Diabetes mellitus Continue with insulin sliding scale Patient on basal dose of Levemir 12 units at home History of CVA/CAD/carotid stenosis status post left carotid endarterectomy DVT prophylaxis mechanical due to possibility of underlying stroke Discharge planning pending clinical course possibly home with home care. Versus subacute rehab Follow-up morning labs Anticipated discharge 07/28 , await official EEG read
[2019-07-27 16:49] LABS: Glucose,Whole Blood 167 mg/dL (75-99)
[2019-07-27 20:49] LABS: Glucose,Whole Blood 191 mg/dL (75-99)
[2019-07-27] MEDS: INSULIN DETEMIR (LEVEMIR) 100 UNIT/ML SYR SQ SCH (21:13)
[2019-07-28 01:32] VITALS: TEMP 97.7
[2019-07-28] MEDS: INSULIN ASPART (NovoLOG) 100 UNIT/ML VIAL SQ SCH ×2 (07:12→12:56)
[2019-07-28 07:24] LABS: Glucose,Whole Blood 132 mg/dL (75-99)
[2019-07-28 07:54] VITALS: BP 167/69; PULSE 93; RESP 20
[2019-07-28 08:22] LABS: Calcium 8.6 mg/dL (8.4-10.2)
[2019-07-28 08:32] LABS: Potassium 4.5 mmol/L (3.5-5.1)
[2019-07-28] MEDS: hydrALAZINE HCL 50 MG TAB PO SCH (09:51)
[2019-07-28] MEDS: amLODIPine 10 MG TAB PO SCH (09:51)
[2019-07-28] MEDS: METOPROLOL SUCCINATE (ER) 25 MG TAB.ER.24H PO SCH (09:53)
[2019-07-28] MEDS: LISINOPRIL 20 MG TAB PO SCH (09:53)
[2019-07-28] MEDS: NIFEdipine XL 90 MG TAB.ER.24 PO SCH (09:54)
[2019-07-28] MEDS: METOPROLOL SUCCINATE (ER) 100 MG TAB.ER.24H PO SCH (09:58)
--- NOTE | 2019-07-28 11:40 | P.DS ---
Providers Date of admission: 07/26/19 01:18 Attending physician: Hal Styles MD Consults: 07/26/19 02:24 Consult Physician Urgent Consulting Provider: Deann Catherine Consult Reason/Comments: New onset seizure Do you want consulting provider notified?: Yes Primary care physician: Shauna Mendoza [facility] Course: Final diagnosis at discharge Episode of seizure attack History of CVA with chronic ischemic vessel disease Hypertensive urgency Acute kidney injury Diabetes mellitus 79-year-old male with hypertension currently with elevated blood pressure, diabetes mellitus with controlled blood sugar. history of CAD and CVA., Patient comes in with concerns regarding seizures. Patient reports that patient has residual weakness on the right side. She found him on the ground in his bedroom in the morning yesterday at 8:30 in the morning she reports that he was down for 1 hour trying to get up but he couldn't he was moaning she assisted him to get up she felt that his speech didn't sound normal but she didn't think much about it and otherwise all day he seemed to be at his baseline except for his speech. And then she left the house around 5 PM when she came back 3 hours later she found him on the ground shaking without any vigorous movements but shaking all 4 extremities no bladder or bowel incontinence no tongue biting she was concerned about a seizure and took him to the hospital he went to a different facility but transferred to our facility due to lack of neurology coverage. Computed tomography scan of the brain suggested large left hemisphere old infarct, patient was evaluated by neurology that were facility recommended obtaining MRI of the brain and EEG pending further recommendations. 07/27 Patient was updated regarding results of MRI of the brain which showed chronic small vessel disease still awaiting final EEG read Neurology signed off recommending discharge on current medications if EEG is unremarkable Currently on Keppra 750 twice a day 07/28 Patient was seen and examined, he looks way sharper compared to admission. Alert and oriented. Denies any chest pain or trouble breathing. Tolerating by mouth intake feeding himself. Denies any nausea vomiting. Patient blood pressure is better controlled now medications were reintroduced Acute kidney injury resolved renal function back to baseline No further attacks of seizures since admission Constitutional: vital signs stable, Not in acute distress, pleasant, patient is more talkative today Eyes: Pupils equal round reactive to light Lungs: Clear to auscultation bilaterally, clear to percussion, normal respiratory effort Cardiovascular: Regular rate and rhythm, no murmurs, no gallops, no rubs, no peripheral edema Gastrointestinal: Soft, no tenderness to palpation, bowel sounds positive Extremities: No digital cyanosis peripheral pulses palpable and equal , no calf muscle tenderness Psych: Alert, oriented to place, person and time, appropriate affect, intact judgment right sided weakness unchanged from baseline, slightly decreased sensation over the right upper and lower extremities to light touch Patient to be discharged today to subacute rehab, pending EEG results of unremarkable he was cleared by neurology for discharge Follow-up with PCP Patient and family updated on the plan and they are in agreement Per [facility] law patient should not be driving or operating heavy machinery. Should not be swimming unsupervised for at least 6 months after his last seizure 40 minutes were spent discharging this patient, and more than 50% of the time was spent in counseling the patient and family and in coordinating care. Procedures: EEG MRI BRAIN Patient Condition at Discharge: Stable Plan - Discharge Summary Discharge Rx Participant: No New Discharge Prescriptions: New hydrALAZINE HCL [Apresoline] 100 mg PO BID tab levETIRAcetam [Keppra] 750 mg PO Q12HR tab INSULIN ASPART (NovoLOG) [NovoLOG (formulary)] 0 unit SQ AC-TID vial Metoprolol Succinate (ER) [Toprol XL] 25 mg PO DAILY tab.er.24h Continue Fenofibrate 160 mg PO DAILY glipiZIDE [Glucotrol] 5 mg PO DAILY Ubidecarenone [Co Q-10] 100 mg PO DAILY Ramipril [Altace] 10 mg PO DAILY Felodipine [Felodipine ER] 10 mg PO QAM Metoprolol Succinate [Toprol XL] 100 mg PO QAM NIFEdipine [NIFEdipine ER] 90 mg PO DAILY Cholecalciferol [Vitamin D3 (25 Mcg = 1000 Iu)] 1,000 unit PO DAILY Insulin Glargine,Hum.rec.anlog [Lantus Solostar] 12 units SQ HS Discontinued hydrALAZINE HCL [Apresoline] 100 mg PO DAILY Furosemide [Lasix] 20 mg PO DAILY Metoprolol Succinate [Toprol XL] 100 mg PO DAILY Loratadine [Claritin] 10 mg PO DAILY Discharge Medication List Felodipine [Felodipine ER] 10 mg PO QAM 08/26/16 [History] Fenofibrate 160 mg PO DAILY 08/26/16 [History] Metoprolol Succinate [Toprol XL] 100 mg PO QAM 08/26/16 [History] Ramipril [Altace] 10 mg PO DAILY 08/26/16 [History] Ubidecarenone [Co Q-10] 100 mg PO DAILY 08/26/16 [History] glipiZIDE [Glucotrol] 5 mg PO DAILY 08/26/16 [History] Cholecalciferol [Vitamin D3 (25 Mcg = 1000 Iu)] 1,000 unit PO DAILY 07/26/19 [History] Insulin Glargine,Hum.rec.anlog [Lantus Solostar] 12 units SQ HS 07/26/19 [History] NIFEdipine [NIFEdipine ER] 90 mg PO DAILY 07/26/19 [History] INSULIN ASPART (NovoLOG) [NovoLOG (formulary)] 0 unit SQ AC-TID vial 07/28/19 [Rx] Metoprolol Succinate (ER) [Toprol XL] 25 mg PO DAILY tab.er.24h 07/28/19 [Rx] hydrALAZINE HCL [Apresoline] 100 mg PO BID tab 07/28/19 [Rx] levETIRAcetam [Keppra] 750 mg PO Q12HR tab 07/28/19 [Rx] Follow up Appointment(s)/Referral(s): Farrukh Talamantes, [NON-STAFF] - As Needed Shauna Mendoza MD [Primary Care Provider] - 1-2 days Hui Mcmillan MD [STAFF PHYSICIAN] - 1 Week Sophy Worley MD [Medical Doctor] - 1 Week Ginny Smith MD [STAFF PHYSICIAN] - 1 Week Patient Instructions/Handouts: Nonepileptic Seizures (DC) Discharge Disposition: TRANSFER TO SNF/ECF Plan of Treatment: i listed few neurologist in the community to follow up with , you were seen by Dr. Mcmillan. per [place] state law, no driving , or operating heavy machinary, no swimming unsupervised for at least 6 months after your last seizure
[2019-07-28 11:59] LABS: Glucose,Whole Blood 265 mg/dL (75-99)
[2019-07-28] MEDS: SODIUM CHLORIDE 0.9% 1,000 ML IV SCH (12:56)
[2019-07-28 21:21] LABS: Hemoglobin A1C 6.2 % (4.0-6.0)
--- NOTE | 2019-07-30 22:34 | EEG ---
ELECTROENCEPHALOGRAM REPORT PROCEDURE DATE: 07/27/2019. ELECTROENCEPHALOGRAM (EEG) REPORT: TECHNIQUE: A routine 18 channel EEG was performed with video using the 10/20 electrode placement system. HISTORY: Multiple TIA/strokes with residual right-sided deficits. The patient fell at home. When patient's family returned, the patient was noted to be lying on the floor, shaking all over. CURRENT MEDICATIONS: Lopressor, Ativan, Zestril, Keppra, insulin, Norvasc. STUDY DURATION: 20 minutes. FINDINGS: Please note that portions of this recording were limited interpretation by the presence of muscle artifact. BACKGROUND: The background activity consisted of 7-8 hertz rhythmic waveforms symmetric through both posterior quadrants. ACTIVATION: Hyperventilation: Not performed. Photic stimulation: Symmetric driving seen. Sleep: None. ABNORMALITIES: Intermittent diffuse 5-7 hertz theta range slowing was seen. IMPRESSION: Mildly abnormal EEG. The intermittent diffuse theta range slowing mentioned above is not epileptiform in nature. In combination with the slow background, these findings indicate mild diffuse cerebral dysfunction. No seizures were recorded. No epileptiform activity was present. MMODL / IJN: [id number] /
== END 2019-07-28 16:07 | DRG 101 ==
LOC: EC 23:54 → 4SSUR 07-26 01:18
PROVIDERS: ADMIT Internal Medicine; ATTEND Internal Medicine
DX: G40.909 Epilepsy, unspecified, not intractable, without status epilepticus (principal); I69.351 Hemiplegia and hemiparesis following cerebral infarction affecting right dominant side; N17.9 Acute kidney failure, unspecified; D72.829 Elevated white blood cell count, unspecified; E11.9 Type 2 diabetes mellitus without complications; E78.5 Hyperlipidemia, unspecified; G93.89 Other specified disorders of brain; I10 Essential (primary) hypertension; I16.0 Hypertensive urgency; I25.10 Atherosclerotic heart disease of native coronary artery without angina pectoris; I25.2 Old myocardial infarction; I83.90 Asymptomatic varicose veins of unspecified lower extremity; M19.90 Unspecified osteoarthritis, unspecified site; K57.90 Diverticulosis of intestine, part unspecified, without perforation or abscess without bleeding; Z79.82 Long term (current) use of aspirin; Z79.84 Long term (current) use of oral hypoglycemic drugs; Z79.899 Other long term (current) drug therapy; Z88.1 Allergy status to other antibiotic agents; Z88.0 Allergy status to penicillin; Z88.8 Allergy status to other drugs, medicaments and biological substances; Z95.1 Presence of aortocoronary bypass graft; Z87.891 Personal history of nicotine dependence; Z85.828 Personal history of other malignant neoplasm of skin; Z80.9 Family history of malignant neoplasm, unspecified; W19.XXXA Unspecified fall, initial encounter
CPT/HCPCS: 36415; 70551; 80048; 80053; 81001; 82550; 83036; 83605; 83735; 84145; 85025; 85027; 93005; 95816; 96365; 96366; 99285

== ENCOUNTER → 2020-07-21 | Outpatient (CLI) | payer MEDICARE ==
--- NOTE | 2020-07-22 14:25 | US ---
EXAMINATION TYPE: US kidneys/renal and bladder DATE OF EXAM: 07/21/2020 COMPARISON: NONE CLINICAL HISTORY: N18.3 CKD STAGE 3. ckd limitations patient unable to roll. EXAM MEASUREMENTS: Right Kidney: 11.4 x 4.9 x 3.9 cm Left Kidney: 11.6 x 5.2 x 4.3 cm Right Kidney: Cystic area upper pole 1.0 x 1.0 x .9 cm Left Kidney: Cystic area lower pole 3.8 x 3.0 x 2.1 cm Bladder: anechoic Bilateral Jets seen: no IMPRESSION: Bilateral renal cysts.
== END | disposition home or self-care (01) ==
LOC: RADUSWWP 15:26
PROVIDERS: ATTEND Family Medicine
DX: N28.1 Cyst of kidney, acquired (principal); N18.30 Chronic kidney disease, stage 3 unspecified
CPT/HCPCS: 76770

== ENCOUNTER 2021-03-14 12:01 | Observation (INO) | payer MEDICARE ==
[2021-03-14] MEDS ORDERED: LORazepam 2 MG/ML INJ IV STA (12:19)
--- NOTE | 2021-03-14 12:27 | ED ---
General Adult HPI - General Chief complaint: Weakness Stated complaint: Weakness Time Seen by Provider: 03/14/21 12:09 Source: patient, family, EMS, RN notes reviewed Mode of arrival: EMS Limitations: altered mental status, physical limitation - History of Present Illness Initial comments: Patient is a pleasant 80-year-old male presenting to the emergency department with concerns for right arm shaking. Onset of symptoms was around 30 minutes ago. Patient does have occasional excessive aphasia that seems improved per . Patient does have history of occasional excessive aphasia however this seemed a little bit worse than normal. Patient does have history of one previous seizure however that was generalized tonic-clonic and did not appear qu ite like this. 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 Patient does have chronic right weakness, especially the arm. Patient is alert and verbal. Patient may have not taken his medications for the past 2 weeks. - Related Data Home Medications Medication Instructions Recorded Confirmed Fenofibrate 160 mg PO DAILY 08/26/16 03/14/21 Metoprolol Succinate [Toprol XL] 100 mg PO DAILY 08/26/16 03/14/21 Ubidecarenone [Co Q-10] 100 mg PO W/SUPPER 08/26/16 03/14/21 glipiZIDE [Glucotrol] 5 mg PO DAILY 08/26/16 03/14/21 Cholecalciferol [Vitamin D3 (25 1,000 unit PO W/SUPPER 07/26/19 03/14/21 Mcg = 1000 Iu)] Insulin Glargine,Hum.rec.anlog 12 units SQ HS 07/26/19 03/14/21 [Lantus Solostar Pen] NIFEdipine [NIFEdipine ER] 90 mg PO DAILY 07/26/19 03/14/21 Aspirin EC [Ecotrin] 325 mg PO W/SUPPER 03/14/21 03/14/21 Cetirizine HCl [Zyrtec] 10 mg PO DAILY 03/14/21 03/14/21 Famotidine [Pepcid] 10 mg PO BID@0800,1700 03/14/21 03/14/21 hydrALAZINE HCL [Apresoline] 100 mg PO BID@0800,1700 03/14/21 03/14/21 levETIRAcetam [Keppra] 750 mg PO BID@0800,1700 03/14/21 03/14/21 ramipriL [Ramipril] 2.5 mg PO DAILY 03/14/21 03/14/21 Previous Rx's Medication Instructions Recorded Metoprolol Succinate (ER) [Toprol 25 mg PO DAILY tab.er.24h 07/28/19 XL] Allergies Allergy/AdvReac Type Severity Reaction Status Date / Time atorvastatin Allergy pain Verified 03/14/21 13:06 clopidogrel [From Plavix] Allergy bleeding Verified 03/14/21 13:06 erythromycin base Allergy Dyspnea Verified 03/14/21 13:06 iodine Allergy Dyspnea Verified 03/14/21 13:06 Penicillins Allergy Rash/Hives, Verified 03/14/21 13:06 chest tightness sitagliptin [From Januvia] Allergy "bad runny Verified 03/14/21 13:06 nose" ticagrelor [From Brilinta] Allergy Chest Verified 03/14/21 13:06 Pain/SOB Review of Systems ROS Statement: Those systems with pertinent positive or pertinent negative responses have been documented in the HPI. ROS Other: All systems not noted in ROS Statement are negative. Constitutional: Denies: fever Eyes: Denies: eye pain ENT: Denies: ear pain Respiratory: Denies: cough Cardiovascular: Denies: chest pain Endocrine: Denies: fatigue Gastrointestinal: Denies: abdominal pain Genitourinary: Denies: dysuria Musculoskeletal: Denies: back pain Skin: Denies: rash Neurological: Reports: as per HPI Past Medical History Past Medical History: Coronary Artery Disease (CAD), Cancer, CVA/TIA, Diabetes Mellitus, Hyperlipidemia, Hypertension, Myocardial Infarction (PA), Osteoarthritis (OA) Additional Past Medical History / Comment(s): TIA x 5- rt sided weakness from, PA x 2, varicose veins, diverticulitis, hx skin cancer Last Myocardial Infarction Date:: 2004 approx History of Any Multi-Drug Resistant Organisms: None Reported Past Surgical History: Coronary Bypass/CABG, Heart Catheterization, Hernia Repair Additional Past Surgical History / Comment(s): stents in left carotid artery, CABG approx 2004, skin cancer removed from back, colonoscopy, Past Anesthesia/Blood Transfusion Reactions: No Reported Reaction Past Psychological History: No Psychological Hx Reported Past Alcohol Use History: Rare Additional Past Alcohol Use History / Comment(s): quit smoking > 20 yrs ago, smoked for 15-20 yrs, 1 ppd Past Drug Use History: None Reported - Past Family History Brother(s) Family Medical History: Cancer General Exam Limitations: altered mental status, physical limitation General appearance: alert, in no apparent distress Head exam: Present: atraumatic Eye exam: Present: normal appearance, PERRL ENT exam: Present: normal oropharynx Neck exam: Present: normal inspection Respiratory exam: Present: normal lung sounds bilaterally Cardiovascular Exam: Present: regular rate, normal rhythm GI/Abdominal exam: Present: soft. Absent: tenderness Extremities exam: Present: normal inspection Neurological exam: Present: alert Expanded Neurological exam: Present: protecting the airway, other (Right upper extremity tonic-clonic activity) Patient oriented to: Present: person. Absent: place, time Motor strength exam: RUE: 0, LUE: 5, RLE: 5, LLE: 5 Eye Response: (4) open spontaneously Motor Response: (6) obeys commands Verbal Response: (4) confused conversation Psychiatric exam: Present: normal affect, normal mood Skin exam: Present: normal color Course Vital Signs 03/14/21 12:04 Temperature 98.9 F Pulse Rate 94 Respiratory 24 Rate Blood Pressure 114/104 O2 Sat by Pulse 93 L Oximetry - Reevaluation(s) Reevaluation #1: 03/14/21 12:34 Case was discussed with neurology, Dr. Charles who will consult and requests urgent EEG to be done today or tomorrow. EKG Findings - EKG Comments: EKG Findings:: Significant motion artifact. Neuro complex rhythm with a rate near 100. QRS 76. QT 258. QTC 436. Normal axis. Normal QRS. No acute ST change. Medical Decision Making - Medical Decision Making Patient reevaluated and improved. No seizure activity or shaking of the right arm. feels it speech has improved. Patient and family updated on results and plan. [facility] physician group has been paged for admission covering Dr. Lopez. - Lab Data Result diagrams: 03/14/21 12:49 03/14/21 12:49 Lab Results 03/14/21 03/14/21 03/14/21 Range/Units 12:49 12:49 12:49 WBC 6.1 (3.8-10.6) k/uL RBC 4.05 L (4.30-5.90) m/uL Hgb 12.2 L (13.0-17.5) gm/dL Hct 37.1 L (39.0-53.0) % MCV 91.6 (80.0-100.0) fL MCH 30.2 (25.0-35.0) pg MCHC 33.0 (31.0-37.0) g/dL RDW 14.9 (11.5-15.5) % Plt Count 237 (150-450) k/uL MPV 8.5 Neutrophils % 71 % Lymphocytes % 20 % Monocytes % 5 % Eosinophils % 2 % Basophils % 1 % Neutrophils # 4.3 (1.3-7.7) k/uL Lymphocytes # 1.2 (1.0-4.8) k/uL Monocytes # 0.3 (0-1.0) k/uL Eosinophils # 0.1 (0-0.7) k/uL Basophils # 0.0 (0-0.2) k/uL PT 10.7 (9.0-12.0) sec INR 1.0 (<1.2) APTT 24.1 (22.0-30.0) sec Sodium 141 (137-145) mmol/L Potassium 4.9 (3.5-5.1) mmol/L Chloride 112 H (98-107) mmol/L Carbon Dioxide 21 L (22-30) mmol/L Anion Gap 8 mmol/L BUN 28 H (9-20) mg/dL Creatinine 1.51 H (0.66-1.25) mg/dL Est GFR (CKD-EPI)AfAm 50 (>60 ml/min/1.73 sqM) Est GFR (CKD-EPI)NonAf 44 (>60 ml/min/1.73 sqM) Glucose 160 H (74-99) mg/dL Calcium 9.0 (8.4-10.2) mg/dL Total Bilirubin 0.4 (0.2-1.3) mg/dL AST 37 (17-59) U/L ALT 17 (4-49) U/L Alkaline Phosphatase 71 (38-126) U/L Troponin I (0.000-0.034) ng/mL Total Protein 6.7 (6.3-8.2) g/dL Albumin 3.5 (3.5-5.0) g/dL 03/14/21 Range/Units 12:49 WBC (3.8-10.6) k/uL RBC (4.30-5.90) m/uL Hgb (13.0-17.5) gm/dL Hct (39.0-53.0) % MCV (80.0-100.0) fL MCH (25.0-35.0) pg MCHC (31.0-37.0) g/dL RDW (11.5-15.5) % Plt Count (150-450) k/uL MPV Neutrophils % % Lymphocytes % % Monocytes % % Eosinophils % % Basophils % % Neutrophils # (1.3-7.7) k/uL Lymphocytes # (1.0-4.8) k/uL Monocytes # (0-1.0) k/uL Eosinophils # (0-0.7) k/uL Basophils # (0-0.2) k/uL PT (9.0-12.0) sec INR (<1.2) APTT (22.0-30.0) sec Sodium (137-145) mmol/L Potassium (3.5-5.1) mmol/L Chloride (98-107) mmol/L Carbon Dioxide (22-30) mmol/L Anion Gap mmol/L BUN (9-20) mg/dL Creatinine (0.66-1.25) mg/dL Est GFR (CKD-EPI)AfAm (>60 ml/min/1.73 sqM) Est GFR (CKD-EPI)NonAf (>60 ml/min/1.73 sqM) Glucose (74-99) mg/dL Calcium (8.4-10.2) mg/dL Total Bilirubin (0.2-1.3) mg/dL AST (17-59) U/L ALT (4-49) U/L Alkaline Phosphatase (38-126) U/L Troponin I 0.023 (0.000-0.034) ng/mL Total Protein (6.3-8.2) g/dL Albumin (3.5-5.0) g/dL - Radiology Data Radiology results: report reviewed (Computed tomography scan of the brain shows old infarct. Chronic changes and atrophy. No significant change from prior.), image reviewed Disposition Clinical Impression: Seizure-like activity, Weakness of right side of body Disposition: ADMITTED IP TO THIS HOSP Is patient prescribed a controlled substance at d/c from ED?: No Referrals: Shauna Mendoza MD [Primary Care Provider] - 1-2 days Decision Time: 14:38
--- NOTE | 2021-03-14 13:01 | CT ---
EXAMINATION TYPE: CT brain wo con DATE OF EXAM: 03/14/2021 HISTORY: Neuro deficit acute onset, stroke suspected. AMS CT DLP: 1099.4 mGycm. Automated Exposure Control for Dose Reduction was Utilized. TECHNIQUE: CT scan of the head is performed without contrast. COMPARISON: MRI brain July 26, [address] had one day earlier. FINDINGS: There is no acute intracranial hemorrhage or midline shift identified. Mild to moderate d iffuse ventricular and sulcal prominence redemonstrated. Moderate to severe low-attenuation in the wh ite matter again seen greatest on the left where there is some volume loss only at the parietal level suggesting old infarct here. No significant change from prior. The persistent heterogeneous density filling the bilateral maxillary sinuses with some calcification on the right extending into the nasal vault. No bony destruction. Near-complete opacification of the right ethmoid sinuses remains present . Moderate mucosal thickening of the inferior right frontal sinus. Severe vascular calcifications dis demarco internal carotid arteries bilaterally is redemonstrated. The globes are intact. IMPRESSION: No acute intracranial hemorrhage or midline shift. There is mild to moderate diffuse re lated mineral atrophy and moderate to severe left greater than right nonspecific white matter changes favoring chronic small vessel ischemic change redemonstrated. Old left-sided infarct again seen. Sig nificant paranasal sinus disease redemonstrated. No significant change from prior studies.
[2021-03-14 13:14] LABS: Basophils % (A) 1 %; Eosinophils # (A) 0.1 k/uL (0-0.7); Eosinophils % (A) 2 %; HCT 37.1 % (39.0-53.0); HGB 12.2 gm/dL (13.0-17.5); Lymphocytes # (A) 1.2 k/uL (1.0-4.8); Lymphocytes % (A) 20 %; MCH 30.2 pg (25.0-35.0); MCV 91.6 fL (80.0-100.0); Mean Platelet Volume 8.5; Monocytes # (A) 0.3 k/uL (0-1.0); Monocytes % (A) 5 %; Neutrophils # (A) 4.3 k/uL (1.3-7.7); Neutrophils % (A) 71 %; Platelet Count 237 k/uL (150-450); RBC 4.05 m/uL (4.30-5.90); RDW 14.9 % (11.5-15.5); WBC 6.1 k/uL (3.8-10.6)
[2021-03-14 13:25] LABS: Partial Thromboplastin Time 24.1 sec (22.0-30.0); Prothrombin Time 10.7 sec (9.0-12.0)
[2021-03-14 13:36] LABS: Albumin 3.5 g/dL (3.5-5.0); Potassium 4.9 mmol/L (3.5-5.1); Total Bilirubin 0.4 mg/dL (0.2-1.3); Total Protein 6.7 g/dL (6.3-8.2)
[2021-03-14] MEDS ORDERED: LORazepam 2 MG/ML INJ IV PRN (14:39)
[2021-03-14] MEDS ORDERED: NALOXONE 0.4 MG/ML 1 ML VIAL IV PRN (14:39)
--- NOTE | 2021-03-14 14:44 | XR ---
EXAMINATION TYPE: XR chest 2V DATE OF EXAM: 03/14/2021 COMPARISON: None INDICATION: Altered mental status weakness TECHNIQUE: Frontal and lateral views of the chest are obtained. FINDINGS: The heart size is enlarged. The pulmonary vasculature is normal. There appears to be retrocardiac left lower lobe infiltrate. Correlate for pneumonia. IMPRESSION: 1. Correlate for left lower lobe posterior pneumonia.
--- NOTE | 2021-03-14 16:21 | P.HPIM ---
<Prabhu Sahu - Last Filed: 03/14/21 15:34> History of Present Illness H&P Date: 03/14/21 History of Presenting Illness: Patient is a very pleasant 80-year-old male with a past medical history of CAD with previous HI and quadruple bypass, hypertension, hyperlipidemia, insulin-de pendent diabetes mellitus, previous CVAs with right sided deficits and dysarthria, CKD stage III, and seizure disorder. Patient presented to the emergency department today with a chief complaint of seizure-like activity and slurred speech. Upon arrival to the emergency department patient was given Ativan in which ED Physician reports resulted in resolution of tonic-clonic movements to right arm and improvement in speech. Patient was taken for computed tomography scan which was negative for acute intercranial process but did show mild to moderate diffuse related mineral atrophy and moderate to severe left greater than right nonspecific white matter changes favoring chronic small vessel ischemic changes, old left-sided infarct, and significant paranasal sinus disease, with reports of no significant changes from prior studies. Chest x-ray completed showing left lower lobe opacity. Labs drawn with CBC showing normocytic normochromic anemia with hemoglobin of 12.2, coags unremarkable, and BNP consistent with patient's stage III CKD with BUN 28, creatinine 1.51, and GFR of 44 with baseline creatinine level of 1.6. Troponin 0.023. Patient admitted under our services with consultation to neurology. Patient's at bedside reports that approximately 1 hour prior to arrival in the emergency department her began having uncontrollable shaking of his right arm and twitching of his right eye accompanied by worsening slurred speech. She reports that her was supposed to be taking Keppra but stopped taking his medications 2 weeks ago due to reports that he no longer felt that he needed them. She reports that her has a chronic coarse cough and wheezing for many years and denies any recent illnesses, fevers, or complaints. Pt's states that her is back to his baseline with mild right sided deficits and baseline speech. Patient currently alert and oriented to person, place, time, and situation. He denies having a headache, lightheadedness, dizziness, chest pain, palpitations, shortness of breath, increasing or changes in chronic cough, dysphagia, abdominal pain, nausea, vomiting, or having any involuntary loss of bowel or bladder, or experiencing any increases in or changes in his numbness/tingling/weakness of his extremities. Review of systems: Pertinent positives and negatives as discussed in HPI, a complete review of systems was performed and all other systems are negative. Physical exam: Vital signs reviewed and stable. General: Nontoxic, no distress and appears stated age. Derm: Skin warm and dry, normal coloration for ethnicity. Bilateral lower extremity venous discoloration. Head: Atraumatic, normocephalic and symmetric. Eyes: EOMs intact, no lid lag, and anicteric sclera. Pupils equal round and reactive 4:2 Mouth: no lip lesions, mucus membranes moist Cardiovascular: regular rate and rhythm with normal S1S2, no murmur, positive posterior tibial pulses bilaterally, and cap refill < 2 seconds. Lungs: Respirations even, regular, and unlabored on room air. Diffuse bilateral expiratory wheezing present. Abdominal: soft, nontender to palpation, no guarding, no appreciable o rganomegaly Ext: ROM intact. No gross muscle atrophy, 1+ pitting BLE edema, no contractures. Neuro: Speech clear, face symmetrical and CN II-XII grossly intact. GCS 15. Patient with right upper and lower extremity weakness (chronic from previous CVA) Psych: Alert and oriented to person, place, time, and situation. Appropriate and pleasant affect. Assessment and Plan of Care: Seizure-like activity and worsening dysarthria with history of CVAs with deficits and seizure disorder -CT brain was negative for acute intercranial process but did show mild to moderate diffuse related mineral atrophy and moderate to severe left greater than right nonspecific white matter changes favoring chronic small vessel ischemic changes, old left-sided infarct, and significant paranasal sinus disease, with reports of no significant changes from prior studies. -Patient educated on the importance of taking medication as prescribed and never stopping antiepileptic medications without medical supervision and/or direction. -Seizure precautions, aspiration precautions, and fall precautions in place. -Patient informed of [place] state law stating no driving until seizure free for 6 months. Patient also instructed to avoid climbing ladders, operating dangerous or heavy machinery or unsupervised swimming until seizure free for 6 months. CAD with previous HI and quadruple bypass -Continue Keppra 750 mg twice daily. -Ativan as needed for active seizure activity. -Neurology consult -Neuro checks -Lipid profile and hemoglobin A1c along with a.m. labs -Continue daily aspirin Left lower lobe opacity -We will repeat chest x-ray in morning -Possible aspiration, patient and deny any signs/symptoms of pneumonia Hypertension -Monitor vital signs and continue daily medication regimen with hydralazine, lisinopril, Procardia and metoprolol. Hyperlipidemia -Continue daily medication regimen with fenofibrate. Insulin-dependent diabetes mellitus -Glycemic protocol with NovoLog sliding scale along with Levemir 12 units nightly CKD stage III -BNP consistent with patient's stage III CKD with BUN 28, creatinine 1.51, and GFR of 44 with baseline creatinine level of 1.6 Normocytic normochromic anemia -Likely chronic secondary to CKD. -We will continue to monitor with repeat a.m. labs. The patient is admitted with an anticipated less than 2 midnight stay for evaluation of seizure-like activity and worsening aphasia Surrogate decision-maker: CODE STATUS: Full code DVT prophylaxis: Lovenox Discussed with: Patient, patient's , and RN Anticipated discharge date: Clinical course to determine Anticipated discharge place: Home A total of 45 minutes was spent on the care of this complex patient more than 50% of the time was spent in counseling and care coordination. Past Medical History Past Medical History: Coronary Artery Disease (CAD), Cancer, CVA/TIA, Diabetes Mellitus, Hyperlipidemia, Hypertension, Myocardial Infarction (HI), Osteoarthritis (OA) Additional Past Medical History / Comment(s): TIA x 5- rt sided weakness from, HI x 2, varicose veins, diverticulitis, hx skin cancer Last Myocardial Infarction Date:: 2004 approx History of Any Multi-Drug Resistant Organisms: None Reported Past Surgical History: Coronary Bypass/CABG, Heart Catheterization, Hernia Repair Additional Past Surgical History / Comment(s): stents in left carotid artery, CABG approx 2004, skin cancer removed from back, colonoscopy, Past Anesthesia/Blood Transfusion Reactions: No Reported Reaction Past Psychological History: No Psychological Hx Reported Past Alcohol Use History: Rare Additional Past Alcohol Use History / Comment(s): quit smoking > 20 yrs ago, smoked for 15-20 yrs, 1 ppd Past Drug Use History: None Reported - Past Family History Brother(s) Family Medical History: Cancer Medications and Allergies Home Medications Medication Instructions Recorded Confirmed Type Fenofibrate 160 mg PO DAILY 08/26/16 03/14/21 History Metoprolol Succinate [Toprol XL] 100 mg PO DAILY 08/26/16 03/14/21 History Ubidecarenone [Co Q-10] 100 mg PO W/SUPPER 08/26/16 03/14/21 History glipiZIDE [Glucotrol] 5 mg PO DAILY 08/26/16 03/14/21 History Cholecalciferol [Vitamin D3 (25 1,000 unit PO W/SUPPER 07/26/19 03/14/21 History Mcg = 1000 Iu)] Insulin Glargine,Hum.rec.anlog 12 units SQ HS 07/26/19 03/14/21 History [Lantus Solostar Pen] NIFEdipine [NIFEdipine ER] 90 mg PO DAILY 07/26/19 03/14/21 History Metoprolol Succinate (ER) [Toprol 25 mg PO DAILY tab.er.24h 07/28/19 03/14/21 Rx XL] Aspirin EC [Ecotrin] 325 mg PO W/SUPPER 03/14/21 03/14/21 History Cetirizine HCl [Zyrtec] 10 mg PO DAILY 03/14/21 03/14/21 History Famotidine [Pepcid] 10 mg PO BID@0800,1700 03/14/21 03/14/21 History hydrALAZINE HCL [Apresoline] 100 mg PO BID@0800,1700 03/14/21 03/14/21 History levETIRAcetam [Keppra] 750 mg PO BID@0800,1700 03/14/21 03/14/21 History ramipriL [Ramipril] 2.5 mg PO DAILY 03/14/21 03/14/21 History Allergies Allergy/AdvReac Type Severity Reaction Status Date / Time atorvastatin Allergy pain Verified 03/14/21 13:06 clopidogrel [From Plavix] Allergy bleeding Verified 03/14/21 13:06 erythromycin base Allergy Dyspnea Verified 03/14/21 13:06 iodine Allergy Dyspnea Verified 03/14/21 13:06 Penicillins Allergy Rash/Hives, Verified 03/14/21 13:06 chest tightness sitagliptin [From Januvia] Allergy "bad runny Verified 03/14/21 13:06 nose" ticagrelor [From Brilinta] Allergy Chest Verified 03/14/21 13:06 Pain/SOB Physical Exam Vitals: Vital Signs Temp Pulse Resp BP Pulse Ox 03/14/21 14:00 66 18 138/66 94 L 09/15/21 13:00 74 18 131/74 92 L 03/14/21 12:04 98.9 F 94 24 114/104 93 L Intake and Output 03/14/21 03/14/21 03/14/21 06:59 14:59 22:59 Other: Weight 86.183 kg Results CBC & Chem 7: 03/14/21 12:49 03/14/21 12:49 Labs: Abnormal Lab Results - Last 24 Hours (Table) 03/14/21 03/14/21 Range/Units 12:49 12:49 RBC 4.05 L (4.30-5.90) m/uL Hgb 12.2 L (13.0-17.5) gm/dL Hct 37.1 L (39.0-53.0) % Chloride 112 H (98-107) mmol/L Carbon Dioxide 21 L (22-30) mmol/L BUN 28 H (9-20) mg/dL Creatinine 1.51 H (0.66-1.25) mg/dL Glucose 160 H (74-99) mg/dL <Stephanie Barbosa - Last Filed: 03/14/21 21:23> History of Present Illness Patient seen and examined independently. Patient was also seen by Prabhu Sahu NP and case was discussed. I am in agreement with subjective, physical exam, assessment and plan as written above and amended below. Discussed with patient and at bedside the importance of taking his medications as prescribed and not stopping them. is in agreement, patient is reluctant. We discussed that he likely would have a repeat seizure. Shocked these medications. states he is almost back to baseline and much better than he was earlier today. Patient does not recall most of his seizure episode. General: non toxic, no distress, appears at stated age Derm: warm, dry Head: atraumatic, normocephalic, symmetric Eyes: EOMI, no lid lag, anicteric sclera Mouth: no lip lesion, mucus membranes moist Cardiovascular: S1S2 reg, no murmur, positive posterior tibial pulse bilateral, Lungs: CTA bilateral, no rhonchi, no rales , no accessory muscle use Abdominal: soft, nontender to palpation, no guarding, no appreciable organomegaly Ext: no gross muscle atrophy, no edema, no contractures Neuro: Muscle strength 3-4 out of 5 in right upper extremity, 4 out of 5 in right lower extremity, 5 out of 5 in left upper and lower extremity, flattening of the right nasal labial fold, mild dysarthria, weakened shoulder shrug on the right Psych: Alert, oriented, appropriate affect Physical Exam Osteopathic Statement: *. No significant issues noted on an osteopathic stru ctural exam other than those noted in the History and Physical/Consult. Vitals: Vital Signs Temp Pulse Pulse Resp BP BP Pulse Ox 03/14/21 21:11 137/70 03/14/21 17:00 70 18 167/99 95 03/14/21 16:08 98.7 F 72 18 175/76 03/14/21 16:00 65 171 H 171/99 95 03/14/21 14:00 66 18 138/66 94 L 03/14/21 13:00 74 18 131/74 92 L 03/14/21 12:04 98.9 F 94 24 114/104 93 L Intake and Output 03/14/21 03/14/21 03/14/21 06:59 14:59 22:59 Other: Weight 86.183 kg 86.183 kg Results CBC & Chem 7: 03/14/21 12:49 03/14/21 12:49 Labs: Abnormal Lab Results - Last 24 Hours (Table) 03/14/21 03/14/21 Range/Units 12:49 12:49 RBC 4.05 L (4.30-5.90) m/uL Hgb 12.2 L (13.0-17.5) gm/dL Hct 37.1 L (39.0-53.0) % Chloride 112 H (98-107) mmol/L Carbon Dioxide 21 L (22-30) mmol/L BUN 28 H (9-20) mg/dL Creatinine 1.51 H (0.66-1.25) mg/dL Glucose 160 H (74-99) mg/dL
--- NOTE | 2021-03-14 17:06 | P.CNNES ---
History of Present Illness Consult date: 03/14/21 Requesting physician: Rizwan Sosa Reason for Consult: ?TIA History of Present Illness: This is a 80-year-old gentleman with medical history of stroke over the left frontal parietal region about 6-7 years ago with residual right-sided deficits (especially upper) and broca aphasia, left carotid stenting about 6-7 years ago multiple TIAs, seizure, chronic kidney insufficiency coronary artery disease, diabetes mellitus, hypertension, myocardial infarction who presented to the emergency department on 03/14/2021 for right arm shaking. The patient is accompanied by his . The patient has shaking of the right upper extremity for about 30 minutes but did not have lost of conscioiusness, urinary or bowel incontinence. Per the , the patient has stopped taking all his home medications for the past two weeks and patient said he is sick and tired of taking medications. He is on Keppra 750mg 1 tab bid for his seizures. Patient also takes aspirin 325mg daily for secondary stroke prophylaxis. He is not on any statins since is ALLERGIC (and had muscle aches). The patient has not followed-up with a neurologist for past 6-7 years. Currently the patient feels he is back to baseline and his agrees. Of note patient was seen by neuro-hospitalist at our facility (by Hui Hughes) last on 07/27/2019 and he was seen that the patient the was a transfer from outside hospital for seizure-like episode with risk factor for seizure. Was recommended for the patient to continue Keppra 750 mg 1 tablet twice a day. The EEG was reported as mild abnormal EEG. The intermittent diffuse theta range slowing mentioned above is not epileptiform in nature. In combination with the the slow background, these finding indicated mild diffuse cerebral dysfunction. No seizure were recorded. No epileptiform activity was present. Please refer to the neurology in note for further details. MRI of the brain on 07/26/2019 is reported as an supplementation of the left frontal parietal lobe likely old stroke. Chronic ischemic disease. Some other workup in the hospital consisted of: Initial vital signs: Blood pressure of 114/104, heart rate of 94, respiratory of 24, temperature of 98.9 throughout oral and pulse ox of 93 at room air. CBC with differential is a white blood cell is 6.1 but the hemoglobin was slight ly low with 12.2 otherwise it's unremarkable. Chemistry panel is creatinine is 1.51 and he seems that he is at baseline. The serum glucose is 160 which is slightly elevated, calcium was 9.0, sodium was 141 which are within normal limits. CT of the head is reported as no acute intracranial hemorrhage or midline shift. There is mild to moderate diffuse related the atrophy and mild to moderate jamila re left greater than the right nonspecific white matter changes favoring chronic small vessel ischemic changes redemonstrated. Old left-sided infarct again seen. Significant paranasal sinus disease redemonstrated. No significant change from prior studies. Review of Systems Review of system: The 12 point system was reviewed and apparent positive and negative per HPI. Past Medical History Past Medical History: Coronary Artery Disease (CAD), Cancer, CVA/TIA, Diabetes Mellitus, Hyperlipidemia, Hypertension, Myocardial Infarction ([place]), Osteoarthritis (OA) Additional Past Medical History / Comment(s): TIA x 5- rt sided weakness from, [place] x 2, varicose veins, diverticulitis, hx skin cancer Last Myocardial Infarction Date:: 2004 approx History of Any Multi-Drug Resistant Organisms: None Reported Past Surgical History: Coronary Bypass/CABG, Heart Catheterization, Hernia Repair Additional Past Surgical History / Comment(s): stents in left carotid artery, CABG approx 2004, skin cancer removed from back, colonoscopy, Past Anesthesia/Blood Transfusion Reactions: No Reported Reaction Past Psychological History: No Psychological Hx Reported Past Alcohol Use History: Rare Additional Past Alcohol Use History / Comment(s): quit smoking > 20 yrs ago, smoked for 15-20 yrs, 1 ppd Past Drug Use History: None Reported - Past Family History Brother(s) Family Medical History: Cancer Medications and Allergies Home Medications Medication Instructions Recorded Confirmed Type Fenofibrate 160 mg PO DAILY 08/26/16 03/14/21 History Metoprolol Succinate [Toprol XL] 100 mg PO DAILY 08/26/16 03/14/21 History Ubidecarenone [Co Q-10] 100 mg PO W/SUPPER 08/26/16 03/14/21 History glipiZIDE [Glucotrol] 5 mg PO DAILY 08/26/16 03/14/21 History Cholecalciferol [Vitamin D3 (25 1,000 unit PO W/SUPPER 07/26/19 03/14/21 History Mcg = 1000 Iu)] Insulin Glargine,Hum.rec.anlog 12 units SQ HS 07/26/19 03/14/21 History [Lantus Solostar Pen] NIFEdipine [NIFEdipine ER] 90 mg PO DAILY 07/26/19 03/14/21 History Metoprolol Succinate (ER) [Toprol 25 mg PO DAILY tab.er.24h 07/28/19 03/14/21 Rx XL] Aspirin EC [Ecotrin] 325 mg PO W/SUPPER 03/14/21 03/14/21 History Cetirizine HCl [Zyrtec] 10 mg PO DAILY 03/14/21 03/14/21 History Famotidine [Pepcid] 10 mg PO BID@0800,1700 03/14/21 03/14/21 History hydrALAZINE HCL [Apresoline] 100 mg PO BID@0800,1700 03/14/21 03/14/21 History levETIRAcetam [Keppra] 750 mg PO BID@0800,1700 03/14/21 03/14/21 History ramipriL [Ramipril] 2.5 mg PO DAILY 03/14/21 03/14/21 History Allergies Allergy/AdvReac Type Severity Reaction Status Date / Time atorvastatin Allergy pain Verified 03/14/21 13:06 clopidogrel [From Plavix] Allergy bleeding Verified 03/14/21 13:06 erythromycin base Allergy Dyspnea Verified 03/14/21 13:06 iodine Allergy Dyspnea Verified 03/14/21 13:06 Penicillins Allergy Rash/Hives, Verified 03/14/21 13:06 chest tightness sitagliptin [From Januvia] Allergy "bad runny Verified 03/14/21 13:06 nose" ticagrelor [From Brilinta] Allergy Chest Verified 03/14/21 13:06 Pain/SOB Physical Examination - Vital Signs Vital Signs: Vital Signs Temp Pulse Resp BP Pulse Ox 03/14/21 14:00 66 18 138/66 94 L 03/14/21 13:00 74 18 131/74 92 L 03/14/21 12:04 98.9 F 94 24 114/104 93 L Intake and Output 03/14/21 03/14/21 03/14/21 06:59 14:59 22:59 Other: Weight 86.183 kg GENERAL: The patient is lying in bed and is not in acute distress. CHEST: The heart rate is regular rate rhythm. No murmurs to auscultation. No carotid bruit bilaterally. LUNG: Clear to auscultation bilaterally no wheezing noted throughout. Not labored breathing. ABDOMEN/GI: Bowel sounds present in all 4 quadrants. No tenderness to palpation throughout. NEUROLOGICAL: Higher mental function: The patient is awake, alert, oriented to self and stated he was in the hospital but did not know the name. He could not tell me the moth or year. He was able to name objects correctly (pen and watch). Patient is following commands. He has paraphrasic errors and some word finding difficulty which seems consistent with broca aphasia (which stated is baseline). Has difficulty repeating. No neglect. Cranial nerves: The pupils are round, equal and reactive to light and ac commodation. Visual andrade are full to confrontation throughout. Extraocular movement is intact no nystagmus is noted. Facial sensation is normal to touch throughout. The facial strength is minimal right nasolabial flattening. Hearing is moderately decreased bilaterally to hand rub. Tongue is midline and moved [id number] without any difficulty. Mild dysarthria is noted. Shoulder shrug is normal bilaterally. Motor: Gait is deferred. The strength is right upper extremity is 3-4 and has increase tone while left knee extension is 4+ to 5-. Otherwise rest are 5/5. Normal bulk. Cerebellum: Normal finger to nose bilaterally. Sensation: Sensation is normal to touch throughout. Reflexes (right/left): 3+ over the right and 2+ over the left. Plantar is upgoing over the right and mute over the left. Results - Laboratory Findings CBC and BMP: 03/14/21 12:49 03/14/21 12:49 Abnormal Lab Findings: Abnormal Labs 03/14/21 03/14/21 12:49 12:49 RBC 4.05 L Hgb 12.2 L Hct 37.1 L Chloride 112 H Carbon Dioxide 21 L BUN 28 H Creatinine 1.51 H Glucose 160 H Assessment and Plan Assessment: Provoked seizures (focal motor seizure without loss of consciousness) since patient has been noncompliant for the last 2 weeks History of seizure History of old stroke (chronic encephalomalacia over the left frontal parietal region) with residual right-sided weakness upper more than lower and residual broca aphasia about 6-7 years ago History of multiple TIAs History of left carotid stenting about 6-7 years ago History of coronary artery disease Diabetes mellitus Hyperlipidemia Hypertension Myocardial infarction Medication Non-compliance Plan: Keppra 750 mg 1 tablet twice a day is continued. His home medication of aspirin 325 was continued for secondary stroke prop hylaxis. He is ALLERGIC to statin. I canceled the EEG since is not to provide any more information since the patient is known to have history of seizures and he's been noncompliant taking his medication. Q4 hour hour neuro checks Seizure precautions and seizure pads We'll defer the rest of the medical management to primary team. Patient was also old on the medication compliance. Upon discharge the patient is to follow up with a neurologist within 1-2 weeks as an outpatient. Per [place] DM patient is to avoid driving for 6 month until the seizure-free. Patient is to avoid heights, using heavy machinery and swimming unassisted. His feels the patient is back to baseline and would like to take him home and patient feels he is doing better. Thank you for the consultation Luisito Charles M.D. Neuro-hospitalist Time with Patient: Greater than 30
[2021-03-14] MEDS ORDERED: ASPIRIN 325 MG TAB PO SCH (17:30)
[2021-03-14] MEDS: INSULIN ASPART (NovoLOG) 100 UNIT/ML VIAL SQ SCH ×2 (19:03→21:15)
[2021-03-14] MEDS: FAMOTIDINE 20 MG TAB PO SCH (19:12)
[2021-03-14] MEDS: hydrALAZINE HCL 50 MG TAB PO SCH (19:17)
[2021-03-14 20:36] LABS: Glucose,Whole Blood 87 mg/dL (75-99)
[2021-03-14] MEDS ORDERED: INSULIN DETEMIR (LEVEMIR) 100 UNIT/ML SYR SQ SCH (21:00)
[2021-03-15 00:44] LABS: Glucose,Whole Blood 101 mg/dL (75-99)
[2021-03-15 01:58] VITALS: RESP 16
[2021-03-15 06:06] LABS: African American GFR (CKD) 51 (>60 ml/min/1.73 sqM); Anion Gap 8 mmol/L; Blood Urea Nitrogen 27 mg/dL (9-20); Calcium 8.9 mg/dL (8.4-10.2); Carbon Dioxide 23 mmol/L (22-30); Chloride 111 mmol/L (98-107); Glucose 99 mg/dL (74-99); Non-African American GFR(CKD) 44 (>60 ml/min/1.73 sqM); Potassium 4.7 mmol/L (3.5-5.1); Sodium 142 mmol/L (137-145)
[2021-03-15 07:01] LABS: Glucose,Whole Blood 94 mg/dL (75-99)
[2021-03-15 07:22] VITALS: BP 184/74; PULSE 69; TEMP 97.4
--- NOTE | 2021-03-15 07:41 | XR ---
EXAMINATION TYPE: XR chest 1V DATE OF EXAM: 03/15/2021 COMPARISON: 03/14/2021 HISTORY: 80-year-old male follow-up left lower lobe opacity TECHNIQUE: Single frontal view of the chest is obtained. FINDINGS: Heart remains enlarged. Median sternotomy wires. Bony vasculature within normal limits. So me patchy retrocardiac opacity remains on the frontal view. No sizable effusion. IMPRESSION: 1. Similar cardiomegaly. 2. Continued patchy retrocardiac opacity.
[2021-03-15] MEDS: INSULIN ASPART (NovoLOG) 100 UNIT/ML VIAL SQ SCH ×2 (08:45→11:37)
[2021-03-15] MEDS ORDERED: METOPROLOL SUCCINATE (ER) 25 MG TAB.ER.24H PO SCH (09:00)
[2021-03-15] MEDS ORDERED: METOPROLOL SUCCINATE (ER) 100 MG TAB.ER.24H PO SCH (09:00)
[2021-03-15] MEDS ORDERED: FENOFIBRATE 160 MG TAB PO SCH (09:00)
[2021-03-15] MEDS ORDERED: NIFEdipine XL 90 MG TAB.ER.24 PO SCH (09:00)
[2021-03-15] MEDS ORDERED: lisinopriL 10 MG TAB PO SCH (09:00)
[2021-03-15] MEDS ORDERED: ENOXAPARIN 40 MG/0.4 ML SYRINGE SQ SCH (09:00)
[2021-03-15 09:04] LABS: HGB 10.8 g/dL (13.0-17.0); MCHC 31.8 g/dL (32.0-37.0); MCV 91.2 fL (80.0-97.0); Mean Platelet Volume 11.3 fL (9.5-12.2); Platelet Count 219 X 10*3/uL (140-440); RBC 3.73 X 10*6/uL (4.40-5.60); RDW 15.4 % (11.5-14.5); WBC 5.11 X 10*3/uL (4.50-10.00)
[2021-03-15] MEDS: hydrALAZINE HCL 50 MG TAB PO SCH (09:35)
[2021-03-15] MEDS: FAMOTIDINE 20 MG TAB PO SCH (09:37)
--- NOTE | 2021-03-15 10:49 | P.DS ---
<Prabhu Sahu - Last Filed: 03/15/21 12:48> Providers Expected date of discharge: 03/15/21 Hospital Course: Discharge Diagnosis: Seizure-like activity and worsening dysarthria with history of CVAs with deficits and seizure disorder Left lower lobe opacity Hypertension Hyperlipidemia Insulin-dependent diabetes mellitus CKD stage III Normocytic normochromic anemia Hospital Course: Patient is a very pleasant 80-year-old male with a past medical history of CAD with previous GA and quadruple bypass, hypertension, hyperlipidemia, insulin- dependent diabetes mellitus, previous CVAs with right sided deficits and dysarthria, CKD stage III, and seizure disorder. Patient presented to the emergency department today with a chief complaint of seizure-like activity and slurred speech. Upon arrival to the emergency department patient was given Ativan in which ED Physician reports resulted in resolution of tonic-clonic movements to right arm and improvement in speech. Patient was taken for computed tomography scan which was negative for acute intercranial process but did show mild to moderate diffuse related mineral atrophy and moderate to severe left greater than right nonspecific white matter changes favoring chronic small vessel ischemic changes, old left-sided infarct, and significant paranasal sinus disease, with reports of no significant changes from prior studies. Chest x-ray completed showing left lower lobe opacity. Labs drawn with CBC showing normocytic normochromic anemia with hemoglobin of 12.2, coags unremarkable, and BNP consistent with patient's stage III CKD with BUN 28, creatinine 1.51, and GFR of 44 with baseline creatinine level of 1.6. Troponin 0.023. Patient admitted under our services on 03/14/21 with consultation to neurology. Patient's at bedside reports that approximately 1 hour prior to arrival in the emergency department her began having uncontrollable shaking of his right arm and twitching of his right eye accompanied by worsening slurred speech. She reports that her was supposed to be taking Keppra but stopped taking his medications 2 weeks ago due to reports that he no longer felt that he needed them. She reports that her has a chronic coarse cough and wheezing for many years and denies any recent illnesses, fevers, or complaints. Pt's states that her is back to his baseline with mild right sided deficits and baseline speech. Patient was admitted to observation and monitored overnight. He remained stable and had no further episodes of seizure activity throughout hospitalization. He was seen and fully evaluated and cleared by neurology for discharge home and instructed to follow up outpatient with neurologist. Repeat x-ray was done this morning showing no changes in left lower lobe opacity, patient continues to deny having any chest pain, shortness of breath, changes in cough or congestion, fevers, chills, or any other complaints. Patient was educated on the importance of taking med ications as directed without skipping any doses and strongly educated on the importance of never stopping antiepileptic medication without direction or supervision of a physician as this places him at a great risk for recurrent seizures which could result in further deterioration of his health with consequences up to and including . Physical exam: Patient seen and fully evaluated at bedside this morning. He remains alert and oriented to person, time, place, and situation. He continues to have periods of dysarthria which is his baseline speech per . Pt denies having any complaints this morning including headache, lightheadedness, dizziness, chest pain, palpitations, shortness of breath, nausea, vomiting, or experiencing any increased weakness/tingling/numbness in extremities or noticing any involuntary tremors. Vital signs reviewed and stable. General: Nontoxic, no distress and appears stated age. Derm: Skin warm and dry, normal coloration for ethnicity. Bilateral lower extremity venous discoloration. Head: Atraumatic, normocephalic and symmetric. Eyes: EOMs intact, no lid lag, and anicteric sclera. Pupils equal round and reactive 4:2 Mouth: no lip lesions, mucus membranes moist Cardiovascular: regular rate and rhythm with normal S1S2, no murmur, positive posterior tibial pulses bilaterally, and cap refill < 2 seconds. Lungs: Respirations even, regular, and unlabored on room air. Diffuse bilateral expiratory wheezing present. Abdominal: soft, nontender to palpation, no guarding, no appreciable organomegaly Ext: ROM intact. No gross muscle atrophy, 1+ pitting BLE edema, no contractures. Neuro: Speech clear, face symmetrical and CN II-XII grossly intact. GCS 15. Patient with right upper and lower extremity weakness (chronic from previous CVA) Psych: Alert and oriented to person, place, time, and situation. Appropriate and pleasant affect. A total of 45 minutes of time were spent preparing this complex discharge summary. Assessment: I reviewed the documentation as provided by the JESS above, who is the original author of this note. I agree with the documented assessment and plan, with the following changes: None Patient Condition at Discharge: Stable Plan - Discharge Summary Discharge Rx Participant: No New Discharge Prescriptions: Continue Fenofibrate 160 mg PO DAILY glipiZIDE [Glucotrol] 5 mg PO DAILY Ubidecarenone [Co Q-10] 100 mg PO W/SUPPER Metoprolol Succinate [Toprol XL] 100 mg PO DAILY NIFEdipine [NIFEdipine ER] 90 mg PO DAILY Cholecalciferol [Vitamin D3 (25 Mcg = 1000 Iu)] 1,000 unit PO W/SUPPER Insulin Glargine,Hum.rec.anlog [Lantus Solostar Pen] 12 units SQ HS Metoprolol Succinate (ER) [Toprol XL] 25 mg PO DAILY tab.er.24h Cetirizine HCl [Zyrtec] 10 mg PO DAILY Famotidine [Pepcid] 10 mg PO BID@0800,1700 levETIRAcetam [Keppra] 750 mg PO BID@0800,1700 ramipriL [Ramipril] 2.5 mg PO DAILY Aspirin EC [Ecotrin] 325 mg PO W/SUPPER hydrALAZINE HCL [Apresoline] 100 mg PO BID@0800,1700 Discharge Medication List Fenofibrate 160 mg PO DAILY 08/26/16 [History] Metoprolol Succinate [Toprol XL] 100 mg PO DAILY 08/26/16 [History] Ubidecarenone [Co Q-10] 100 mg PO W/SUPPER 08/26/16 [History] glipiZIDE [Glucotrol] 5 mg PO DAILY 08/26/16 [History] Cholecalciferol [Vitamin D3 (25 Mcg = 1000 Iu)] 1,000 unit PO W/SUPPER 07/26/19 [History] Insulin Glargine,Hum.rec.anlog [Lantus Solostar Pen] 12 units SQ HS 07/26/19 [History] NIFEdipine [NIFEdipine ER] 90 mg PO DAILY 07/26/19 [History] Metoprolol Succinate (ER) [Toprol XL] 25 mg PO DAILY tab.er.24h 07/28/19 [Rx] Aspirin EC [Ecotrin] 325 mg PO W/SUPPER 03/14/21 [History] Cetirizine HCl [Zyrtec] 10 mg PO DAILY 03/14/21 [History] Famotidine [Pepcid] 10 mg PO BID@0800,1700 03/14/21 [History] hydrALAZINE HCL [Apresoline] 100 mg PO BID@0800,1700 03/14/21 [History] levETIRAcetam [Keppra] 750 mg PO BID@0800,1700 03/14/21 [History] ramipriL [Ramipril] 2.5 mg PO DAILY 03/14/21 [History] Follow up Appointment(s)/Referral(s): Ginny Smith MD [REFERRING] - 03/30/21 10:00 am Shauna Mendoza MD [Primary Care Provider] - 03/19/21 1:40 pm Patient Instructions/Handouts: Recurrent Seizures in Adults (DC) Activity/Diet/Wound Care/Special Instructions: Patient informed of [place] state law stating no driving until seizure free for 6 months. Patient also instructed to avoid climbing ladders, operating dangerous or heavy machinery or unsupervised swimming until seizure free for 6 months. Please remember to take all of your medications as directed. Never stop taking an antiepileptic medication such as your Keppra without direction or under supervision of a physician as this puts you at great risk for recurrent seizures which may result in further deterioration of your health with consequences up to and including . Thank you for allowing us to participate in her care, it was truly a pleasure having you for our patient!!! Discharge Disposition: HOME SELF-CARE <Juan Santos - Last Filed: 03/15/21 15:34> Providers Date of admission: 03/14/21 14:39 Attending physician: Stephanie Barbosa, Consults: 03/14/21 14:40 Consult Physician Urgent Consulting Provider: Luisito Charles Consult Reason/Comments: seizure, ? tia Do you want consulting provider notified?: Already Contacted Primary care physician: Shauna Mendoza
[2021-03-15 11:34] LABS: Glucose,Whole Blood 124 mg/dL (75-99)
[2021-03-15 16:07] LABS: Hemoglobin A1C 5.6 % (4.0-6.0)
[2021-03-16 01:38] LABS: Chol/HDL Ratio 5.51; Cholesterol 226 mg/dL (0-200); LDL Cholesterol,Calculated 145.6 mg/dL (0.0-131.0)
== END 2021-03-15 12:47 | disposition home or self-care (01) ==
LOC: EC 12:01 → 4SSUR 14:39 → INTOOBSV 14:39 → 4SSUR 17:49 → UNDODISIN 03-15 12:47
PROVIDERS: ADMIT Internal Medicine; ATTEND Internal Medicine
DX: G40.909 Epilepsy, unspecified, not intractable, without status epilepticus (principal); I69.351 Hemiplegia and hemiparesis following cerebral infarction affecting right dominant side; I69.320 Aphasia following cerebral infarction; I69.322 Dysarthria following cerebral infarction; I25.10 Atherosclerotic heart disease of native coronary artery without angina pectoris; I13.10 Hypertensive heart and chronic kidney disease without heart failure, with stage 1 through stage 4 chronic kidney disease, or unspecified chronic kidney disease; N18.30 Chronic kidney disease, stage 3 unspecified; E11.22 Type 2 diabetes mellitus with diabetic chronic kidney disease; I25.2 Old myocardial infarction; E78.5 Hyperlipidemia, unspecified; R94.01 Abnormal electroencephalogram [EEG]; I83.90 Asymptomatic varicose veins of unspecified lower extremity; M19.90 Unspecified osteoarthritis, unspecified site; K57.90 Diverticulosis of intestine, part unspecified, without perforation or abscess without bleeding; Z91.14 Patient's other noncompliance with medication regimen; Z91.19 Patient's noncompliance with other medical treatment and regimen; Z79.4 Long term (current) use of insulin; Z79.82 Long term (current) use of aspirin; Z79.899 Other long term (current) drug therapy; Z88.1 Allergy status to other antibiotic agents; Z88.0 Allergy status to penicillin; Z88.8 Allergy status to other drugs, medicaments and biological substances; Z91.048 Other nonmedicinal substance allergy status; Z87.891 Personal history of nicotine dependence; Z95.1 Presence of aortocoronary bypass graft; Z85.828 Personal history of other malignant neoplasm of skin; Z95.828 Presence of other vascular implants and grafts; Z80.9 Family history of malignant neoplasm, unspecified
CPT/HCPCS: 96372; 96374; 99285; 36415; 93005; 80061; 80053; 80048; 80177; 83735; 84484; 85025; 85027; 85610; 85730; 83036; 87635; 71045; 71046; 70450; G0378 ×2; J2060; J1650

== ENCOUNTER 2022-06-25 02:45 | Inpatient (IN) | payer MEDICARE ==
--- NOTE | 2022-06-25 03:53 | XR ---
EXAMINATION TYPE: XR chest 2V DATE OF EXAM: 06/25/2022 COMPARISON: 02/18/2022 HISTORY: Short of breath TECHNIQUE: FINDINGS: There is moderate blunting left arthritic angle. There are chest leads. There are sternal w ires. Heart appears slightly enlarged. There is increased pulmonary interstitial density. There is pu lmonary congestion. Thoracic aorta is atheromatous. IMPRESSION: There is some interstitial edema with blunting of the left costophrenic angle and consist ent with some atypical congestive heart failure. Left lower lobe pneumonia also likely. Pulmonary con gestion increased compared to old exam.
[2022-06-25 03:57] LABS: Albumin 3.3 g/dL (3.5-5.0); Calcium 8.6 mg/dL (8.4-10.2); Magnesium 2.2 mg/dL (1.6-2.3); Potassium 4.5 mmol/L (3.5-5.1); Total Bilirubin 0.4 mg/dL (0.2-1.3); Total Protein 6.6 g/dL (6.3-8.2)
[2022-06-25 03:58] LABS: Basophils # (A) 0.1 k/uL (0-0.2); Basophils % (A) 1 %; Eosinophils # (A) 0.1 k/uL (0-0.7); Eosinophils % (A) 2 %; HCT 38.9 % (39.0-53.0); HGB 12.3 gm/dL (13.0-17.5); Hypochromasia Slight; Lymphocytes # (A) 1.7 k/uL (1.0-4.8); Lymphocytes % (A) 21 %; MCHC 31.6 g/dL (31.0-37.0); Mean Platelet Volume 8.7; Monocytes # (A) 0.3 k/uL (0-1.0); Monocytes % (A) 4 %; Neutrophils # (A) 5.6 k/uL (1.3-7.7); Neutrophils % (A) 71 %; Platelet Count 212 k/uL (150-450); RBC 4.09 m/uL (4.30-5.90); RDW 14.4 % (11.5-15.5); WBC 7.9 k/uL (3.8-10.6)
[2022-06-25 04:02] LABS: INR 1.2 (<1.2); Partial Thromboplastin Time 24.5 sec (22.0-30.0)
[2022-06-25] MEDS ORDERED: diphenhydrAMINE 50 MG/ML 1 ML VIAL IVP STA (04:26)
[2022-06-25] MEDS ORDERED: methylPREDNISolone SOD SUCCI 125 MG/2 ML VIAL IV STA (04:26)
[2022-06-25] MEDS ORDERED: SODIUM CHLORIDE 0.9% 500 ML 500 ML IV ONE (05:38)
[2022-06-25] MEDS ORDERED: FUROSEMIDE 10 MG/ML 4 ML VIAL IV STA (05:43)
--- NOTE | 2022-06-25 05:48 | CT ---
EXAMINATION TYPE: CT angio chest DATE OF EXAM: 06/25/2022 COMPARISON: 06/14/2019 HISTORY: CAM elevated d-dimer CT DLP: 522.3 mGycm Automated exposure control for dose reduction was used. CONTRAST: Performed with IV Contrast, patient injected with 70 mL of Isovue 370. There are Three-D postprocessed images. There are bilateral pleural effusions and larger on the left side. There is bilateral lower lobe pulm onary infiltrate and atelectasis. There is multiple mediastinal lymph nodes that measure up to 2 cm. There are no hilar masses. There i s normal contrast opacification of the pulmonary arteries. No filling defect. Thoracic aorta is ather omatous. The ascending aorta measures 3.6 cm. IMPRESSION: No evidence of pulmonary embolism. Bilateral lower lobe pneumonia and atelectasis with pleural effusi ons. Lung abnormalities are new compared to old exam. There are enlarged mediastinal lymph nodes comp ared to old exam and appearance is nonspecific.
[2022-06-25] MEDS ORDERED: cefTRIAXone IN SWFI 1,000 MG/10 ML SYRINGE IVP STA (05:57)
[2022-06-25] MEDS ORDERED: NALOXONE 0.4 MG/ML 1 ML VIAL IV PRN (06:21)
[2022-06-25] MEDS ORDERED: DOXYCYCLINE 100 MG in SODIUM CHLORIDE 0.9% 100 ML IVPB ONE (06:21)
--- NOTE | 2022-06-25 06:33 | ED ---
General Adult HPI - General Chief complaint: Shortness of Breath Stated complaint: CAM Time Seen by Provider: 06/25/22 02:45 Source: EMS Mode of arrival: EMS - History of Present Illness Initial comments: This is an 82-year-old male with a past medical history including previous s troke and multiple other medical problems presents emergency department via EMS for shortness of breath. It was reported that the patient had hypoxia on arrival and was shown to be 84% on room air. The patient does not use oxygen at home. The patient stated that he had increasing shortness of breath over the last several days, worsening today. The patient was an overall poor historian and he cannot provide many details. EMS did provide details to the nurse upon triage. The patient himself denied any acute chest pain or shortness of breath currently. The patient denied any fevers and chills. The patient stated that he has a history of multiple episodes of pneumonia and he did feel that it was similar to this. The patient was however resting in bed comfortably without any fevers or chills. - Related Data Home Medications Medication Instructions Recorded Confirmed Fenofibrate 160 mg PO DAILY 08/26/16 03/14/21 Metoprolol Succinate [Toprol XL] 100 mg PO DAILY 08/26/16 03/14/21 Ubidecarenone [Co Q-10] 100 mg PO W/SUPPER 08/26/16 03/14/21 glipiZIDE [Glucotrol] 5 mg PO DAILY 08/26/16 03/14/21 Cholecalciferol [Vitamin D3 (25 1,000 unit PO W/SUPPER 07/26/19 03/14/21 Mcg = 1000 Iu)] Insulin Glargine,Hum.rec.anlog 12 units SQ HS 07/26/19 03/14/21 [Lantus Solostar Pen] NIFEdipine [NIFEdipine ER] 90 mg PO DAILY 07/26/19 03/14/21 Aspirin EC [Ecotrin] 325 mg PO W/SUPPER 03/14/21 03/14/21 Cetirizine HCl [Zyrtec] 10 mg PO DAILY 03/14/21 03/14/21 Famotidine [Pepcid] 10 mg PO BID@0800,1700 03/14/21 03/14/21 hydrALAZINE HCL [Apresoline] 100 mg PO BID@0800,1700 03/14/21 03/14/21 levETIRAcetam [Keppra] 750 mg PO BID@0800,1700 03/14/21 03/14/21 ramipriL 2.5 mg PO DAILY 03/14/21 03/14/21 Previous Rx's Medication Instructions Recorded Metoprolol Succinate (ER) [Toprol 25 mg PO DAILY tab.er.24h 07/28/19 XL] Allergies Allergy/AdvReac Type Severity Reaction Status Date / Time atorvastatin Allergy pain Verified 03/14/21 13:06 clopidogrel [From Plavix] Allergy bleeding Verified 03/14/21 13:06 erythromycin base Allergy Dyspnea Verified 03/14/21 13:06 iodine Allergy Dyspnea Verified 03/14/21 13:06 Penicillins Allergy Rash/Hives, Verified 03/14/21 13:06 chest tightness sitagliptin [From Januvia] Allergy "bad runny Verified 03/14/21 13:06 nose" ticagrelor [From Brilinta] Allergy Chest Verified 03/14/21 13:06 Pain/SOB Review of Systems ROS Statement: Those systems with pertinent positive or pertinent negative responses have been documented in the HPI. ROS Other: All systems not noted in ROS Statement are negative. Past Medical History Past Medical History: Coronary Artery Disease (CAD), Cancer, CVA/TIA, Diabetes Mellitus, Hyperlipidemia, Hypertension, Myocardial Infarction ([place]), Ost eoarthritis ([place]) Additional Past Medical History / Comment(s): TIA x 5- rt sided weakness from, [place] x 2, varicose veins, diverticulitis, hx skin cancer Last Myocardial Infarction Date:: 2004 approx History of Any Multi-Drug Resistant Organisms: None Reported Past Surgical History: Coronary Bypass/CABG, Heart Catheterization, Hernia Repair Additional Past Surgical History / Comment(s): stents in left carotid artery, CABG approx 2004, skin cancer removed from back, colonoscopy, Past Anesthesia/Blood Transfusion Reactions: No Reported Reaction Past Psychological History: No Psychological Hx Reported Past Alcohol Use History: Rare Additional Past Alcohol Use History / Comment(s): quit smoking > 20 yrs ago, smoked for 15-20 yrs, 1 ppd Past Drug Use History: None Reported - Past Family History Brother(s) Family Medical History: Cancer General Exam Limitations: no limitations, physical limitation General appearance: alert, in no apparent distress Head exam: Present: atraumatic, normocephalic Eye exam: Present: normal appearance, PERRL Pupils: Present: normal accommodation ENT exam: Present: normal exam, normal oropharynx, mucous membranes moist Neck exam: Present: normal inspection, full ROM Respiratory exam: Present: rhonchi (Rhonchi heard on the right lung field), decreased breath sounds (Over the left lung field) Cardiovascular Exam: Present: regular rate, normal rhythm, normal heart sounds GI/Abdominal exam: Present: soft, normal bowel sounds Extremities exam: Present: normal inspection, full ROM, pedal edema Back exam: Present: normal inspection, full ROM Neurological exam: Present: alert, oriented X3, CN II-XII intact Psychiatric exam: Present: normal affect, normal mood Skin exam: Present: warm, dry Course Vital Signs 06/25/22 06/25/22 06/25/22 02:56 03:03 05:00 Temperature 97.4 F L Pulse Rate 58 L 56 L 89 Respiratory 18 18 16 Rate Blood Pressure 164/60 144/61 O2 Sat by Pulse 84 L 98 98 Oximetry 06/25/22 05:43 Temperature Pulse Rate 54 L Respiratory 18 Rate Blood Pressure 167/89 O2 Sat by Pulse 98 Oximetry EKG Findings - EKG Comments: EKG Findings:: An EKG was obtained and was interpreted by myself showing a rate of 57, ND interval 180, QRS duration 107 and QTC of 438. This EKG showed sinus bradycardia with no ST segment elevations or depressions noted. Medical Decision Making - Medical Decision Making Was pt. sent in by a medical professional or institution? @ -No Did you speak to anyone other than the patient for history? @ -EMS Did you review nursing and triage notes? @ -Nursing triage notes were obtained and reviewed as EMS did report this to the nurse on arrival Were old charts reviewed? @ -No Differential Diagnosis? @ -Pneumonia, congestive heart failure exacerbation, COPD exacerbation, ACS EKG interpreted by me (3pts min.)? @ -As above X-rays interpreted by me (1pt min.)? @ -A chest x-ray was obtained and was interpreted by myself showing interstitial edema with blunting of the left costophrenic angle and consistent with some atypical congestive heart failure. Left lower lobe pneumonia is also likely. CT interpreted by me (1pt min.)? @ -A CT of the chest was ordered due to the patient's elevated d-dimer and CTA of the chest was interpreted by myself showing no evidence of PE. There was bilateral lower lobe pneumonia and atelectasis was pleural effusions. The lung abnormalities are new compared to old exam. There are enlarged mediastinal lymph nodes compared to the old exam and appear nonspecific. U/S interpreted by me (1pt. min.)? @ -[none] What testing was considered but not performed? (CT, X-rays, U/S, labs)? Why? @None What meds were considered but not given? Why? @ -[none] Did you discuss the management of the patient with other professionals? @ -Yes, admitting physician Did you reconcile home meds? @ -[none] Was smoking cessation discussed for >3mins.? @ -[none] Was critical care preformed (if so, how long)? @ -[none] Were there social determinants of health that impacted care today? How? (Homelessness, low income, unemployed, alcoholism, drug addiction, transportation, low edu. Level, literacy, decrease access to med. care, fci, rehab)? @ -None Was there de-escalation of care discussed even if they declined? (Discuss DNR or withdrawal of care, Hospice)? @ -No What co-morbidities impacted this encounter? (DM, HTN, Smoking, COPD, CAD, Cancer, CVA, Hep., AIDS, mental health diagnosis, sleep apnea, morbid obesity)? @ -Previous CVA, hypertension Was patient admitted / discharged? @ -The patient was seen and evaluated emergency department. Physical exam, the patient did present with mild respiratory distress with a pulse ox of 84% on room air. The patient was placed on nasal cannula oxygen on arrival. Due to the nature the patient's complaints, laboratory workup was obtained as was a chest x-ray. D-dimer was elevated 1.[address] of the chest was ordered. Laboratory workup did show acute on chronic kidney disease however was largely within normal limits. CT of the chest showed bilateral pneumonia and concern for congestive heart failure. Due to these findings, the patient was given a dose of Lasix in the emergency department as well as Rocephin and doxycycline for the bilateral [employer] pneumonia. The patient was given doxycycline because he was ALLERGIC to erythromycin. The patient continued to remain stable and due to the patient's bilateral pneumonia in the setting of congestive heart failure exacerbation and hypoxia, the patient did require further management and evaluation as an inpatient. The patient does not have a primary care physician on record and Dr. Watkins was contacted and accepted the patient for admission at 0619. The patient was told of this plan and was agreeable. The patient was admitted in stable condition. Undiagnosed new problem with uncertain prognosis? @ -[none] Drug Therapy requiring intensive monitoring for toxicity (Heparin, Nitro, Insulin, Cardizem)? @ -[none] Were any procedures done? @ -[none] Diagnosis/symptom? @ -Bilateral community acquired pneumonia with hypoxia Acute, or Chronic, or Acute on Chronic? @ -Acute Uncomplicated (without systemic symptoms) or Complicated (systemic symptoms)? @ -Complicated Side effects of treatment? @ -[none] Exacerbation, Progression, or Severe Exacerbation] @ -[no] Poses a threat to life or bodily function? @ -[no] Diagnosis/symptom? @ -Congestive heart failure exacerbation Acute, or Chronic, or Acute on Chronic? @ -Acute Uncomplicated (without systemic symptoms) or Complicated (systemic symptoms)? @ -Complicated Side effects of treatment? @ -[none] Exacerbation, Progression, or Severe Exacerbation] @ -Exacerbation Poses a threat to life or bodily function? @ -[no] - Lab Data Result diagrams: 06/25/22 02:58 06/25/22 02:58 Lab Results 06/25/22 06/25/22 06/25/22 Range/Units 02:58 02:58 02:58 WBC 7.9 (3.8-10.6) k/uL RBC 4.09 L (4.30-5.90) m/uL Hgb 12.3 L (13.0-17.5) gm/dL Hct 38.9 L (39.0-53.0) % MCV 95.0 (80.0-100.0) fL MCH 30.0 (25.0-35.0) pg MCHC 31.6 (31.0-37.0) g/dL RDW 14.4 (11.5-15.5) % Plt Count 212 (150-450) k/uL MPV 8.7 Neutrophils % 71 % Lymphocytes % 21 % Monocytes % 4 % Eosinophils % 2 % Basophils % 1 % Neutrophils # 5.6 (1.3-7.7) k/uL Lymphocytes # 1.7 (1.0-4.8) k/uL Monocytes # 0.3 (0-1.0) k/uL Eosinophils # 0.1 (0-0.7) k/uL Basophils # 0.1 (0-0.2) k/uL Hypochromasia Slight PT (9.0-12.0) sec INR (<1.2) APTT (22.0-30.0) sec D-Dimer (<0.60) mg/L FEU Sodium 144 (137-145) mmol/L Potassium 4.5 (3.5-5.1) mmol/L Chloride 110 H (98-107) mmol/L Carbon Dioxide 28 (22-30) mmol/L Anion Gap 6 mmol/L BUN 55 H (9-20) mg/dL Creatinine 2.17 H (0.66-1.25) mg/dL Est GFR (CKD-EPI)AfAm 32 (>60 ml/min/1.73 sqM) Est GFR (CKD-EPI)NonAf 28 (>60 ml/min/1.73 sqM) Glucose 92 (74-99) mg/dL Plasma Lactic Acid Facundo 0.7 (0.7-2.0) mmol/L Calcium 8.6 (8.4-10.2) mg/dL Magnesium 2.2 (1.6-2.3) mg/dL Total Bilirubin 0.4 (0.2-1.3) mg/dL AST 27 (17-59) U/L ALT 13 (4-49) U/L Alkaline Phosphatase 58 (38-126) U/L Troponin I (0.000-0.034) ng/mL NT-Pro-B Natriuret Pep pg/mL Total Protein 6.6 (6.3-8.2) g/dL Albumin 3.3 L (3.5-5.0) g/dL 06/25/22 06/25/22 06/25/22 Range/Units 02:58 02:58 02:58 WBC (3.8-10.6) k/uL RBC (4.30-5.90) m/uL Hgb (13.0-17.5) gm/dL Hct (39.0-53.0) % MCV (80.0-100.0) fL MCH (25.0-35.0) pg MCHC (31.0-37.0) g/dL RDW (11.5-15.5) % Plt Count (150-450) k/uL MPV Neutrophils % % Lymphocytes % % Monocytes % % Eosinophils % % Basophils % % Neutrophils # (1.3-7.7) k/uL Lymphocytes # (1.0-4.8) k/uL Monocytes # (0-1.0) k/uL Eosinophils # (0-0.7) k/uL Basophils # (0-0.2) k/uL Hypochromasia PT 12.0 (9.0-12.0) sec INR 1.2 H (<1.2) APTT 24.5 (22.0-30.0) sec D-Dimer 1.65 H (<0.60) mg/L FEU Sodium (137-145) mmol/L Potassium (3.5-5.1) mmol/L Chloride (98-107) mmol/L Carbon Dioxide (22-30) mmol/L Anion Gap mmol/L BUN (9-20) mg/dL Creatinine (0.66-1.25) mg/dL Est GFR (CKD-EPI)AfAm (>60 ml/min/1.73 sqM) Est GFR (CKD-EPI)NonAf (>60 ml/min/1.73 sqM) Glucose (74-99) mg/dL Plasma Lactic Acid Facundo (0.7-2.0) mmol/L Calcium (8.4-10.2) mg/dL Magnesium (1.6-2.3) mg/dL Total Bilirubin (0.2-1.3) mg/dL AST (17-59) U/L ALT (4-49) U/L Alkaline Phosphatase (38-126) U/L Troponin I 0.028 (0.000-0.034) ng/mL NT-Pro-B Natriuret Pep 3110 pg/mL Total Protein (6.3-8.2) g/dL Albumin (3.5-5.0) g/dL Disposition Clinical Impression: Congestive heart failure, Community acquired pneumonia, Bilateral pneumonia, Hypoxia Disposition: ADMITTED IP TO THIS HOSP Condition: Stable Is patient prescribed a controlled substance at d/c from ED?: No Referrals: Michele Gresham MD [Primary Care Provider] - 1-2 days Time of Disposition: 06:19 Decision to Admit Reason: Admit from EC Decision Date: 06/25/22 Decision Time: 06:19
[2022-06-25 08:02] LABS: Glucose,Whole Blood 90 mg/dL (70-110)
[2022-06-25] MEDS: FAMOTIDINE 20 MG TAB PO SCH ×2 (08:20→16:09)
[2022-06-25] MEDS: FENOFIBRATE 160 MG TAB PO SCH (08:20)
[2022-06-25] MEDS: FUROSEMIDE 20 MG TAB PO SCH (08:21)
[2022-06-25] MEDS: hydrALAZINE HCL 50 MG TAB PO SCH ×2 (08:21→16:09)
--- NOTE | 2022-06-25 08:21 | P.HPIM ---
History of Present Illness H&P Date: 06/25/22 History of Presenting Illness: Patient is a very pleasant 82-year-old male with a past medical history is CAD with CABG, multiple CVAs with right-sided deficits, hypertension, hyperlipidemia, insulin-dependent diabetes mellitus, stage III chronic kidney disease with baseline creatinine of 2.0, and dementia. He lives at home with and reports walking with a walker. Patient presented to the emergency department with the chief complaint of shortness of breath beginning approximately one week ago and progressively worsening. He arrived via EMS and per review of documentation, patient was initially found to be hypoxic with SpO2 of 84% requiring oxygen supplementation. Patient underwent full evaluation in the emergency department. Chest x-ray was completed and upon review it as showing interstitial edema and blunting of left costophrenic angle concerning for heart failure and pneumonia. EKG showing sinus bradycardia at 57 bpm. Labs completed and reviewed. CBC revealing normocytic anemia with hemoglobin of 12.3 which is at baseline, BMP consistent with stage IIIc daily with BUN of 55, creatinine 2.17, and GFR of 28 with baseline creatinine of 2.0. Coagulation profile revealing an elevated d-dimer of 1.65. CTA chest was completed. Upon review, CTA chest showing no evidence of pulmonary emboli revealing bilateral lower lobe pneumonia and atelectasis with pleural effusions, radiologist also reporting lung abnormalities with enlarged mediastinal lymph nodes which are reportedly new when compared to previous CT completed 06/14/19. Patient started on antibiotics Rocephin and doxycycline for treatment of community-acquired pneumonia and being admitted under our services with consultation to pulmonology. Blood cultures have been obtained. Patient is a poor historian and this is his reported baseline mentation, information received from chart review and limited per patient. Family not available at this time. Will reattempt to call again later. Patient currently denies having any headache, lightheadedness, dizziness, fevers, chills, chest pain, palpitations, nausea, or vomiting. Patient does report feeling tired and short of breath and reports nonproductive cough. Review of systems: Pertinent positives and negatives as discussed in HPI, a complete review of systems was limited but performed and all other systems are negative. Physical exam: Vital signs reviewed and stable. General: patient appears acutely ill, appears normal range Derm: Skin warm and dry, normal coloration for ethnicity. Head: Atraumatic, normocephalic and symmetric. Eyes: EOMs intact, no lid lag, and anicteric sclera Mouth: no lip lesions, mucus membranedry Cardiovascular: regular rate and rhythm with normal S1S2, systolic murmur, positive posterior tibial pulses bilaterally, and cap refill < 2 seconds. Lungs: Respirations even, regular, and unlabored o4 L O2 via nasal cannula . Lungs diffuse rhonchi, no wheezing. No accessory muscle usage. Abdominal: soft, nontender to palpation, no guarding, no appreciable organomegaly Ext: Movement and sensation intact in all 4 extremities. Patient with significant right-sided weakness, he is able to move arm slightly 1 out of 5 strength and hand is contracted. Right lower extremity weakness 2 out of 5 strength. No gross muscle atrophy, no edema, no contractures. Bilateral lower extremities dry and scaly with venous discoloration. Neuro: Speech clear, face symmetrical. GCS 14. Patient with right-sided weakness. Psych: Alert and oriented to person and place. Appropriate and pleasant affect. Assessment and Plan of Care: Bilateral lower lobe pneumonia Acute respiratory failure with hypoxia secondary to above Enlarged mediastinal lymph nodes, newly noted on CT Generalized weakness, progressively worsened 1 week -Oxygenation to be administered and titrated as needed to maintain SPO2 equal to or greater than 92% -Telemetry monitoring. -Monitor Pulse-oximetry -Duonebs scheduled and as needed for SOB and/or wheezing -Incentive Spirometry -Steroids: Decadron -Antibiotics: Rocephin and doxycycline -Sputum culture -Covid PCR, influenza A and B PCR, and RSV to be obtained. -Pulmonology consulted regarding newly noted enlarged mediastinal lymph nodes, appreciate recommendations -PT/OT consulted for evaluation and possible placement secondary to progressively worsening generalized weakness Hypertensive urgency History of CAD with CABG History of hypertension History of hyperlipidemia -Hypertensive urgency with blood pressure 213/75 and heart rate of 57. -Monitor vital signs closely, patient has missed morning medications. At this time we will resume daily medication regimen with Procardia, metoprolol, lisinopril, and hydralazine. If no improvement in blood pressure will add on additional IV antihypertensive medications. -Continue heart healthy diet. -Home medications reviewed and reordered, patient to continue fenofibrate History of CVAs with right-sided deficits -Continue antiplatelet therapy with aspirin 325 mg daily. -Heparin for DVT prophylaxis. -Provide safe and supportive care with assistance as needed. -PT/OT consulted secondary to worsening generalized weakness over the past week. -Fall precautions The patient is admitted with an anticipated greater than 2 midnight stay for evaluation of acute respiratory failure with hypoxia Surrogate decision-maker: Patient's CODE STATUS: Full code DVT prophylaxis: heparin Discussed with: patient and RN Anticipated discharge date: clinical course to determine Anticipated discharge place: home A total of 48 minutes was spent on the care of this complex patient more than 5 0% of the time was spent in counseling and care coordination. Prabhu Sahu NP rendered care for this patient independently, reviewed the findings and plan as documented in the note above. I did not physically speak with or examine the patient on this date. Past Medical History Past Medical History: Coronary Artery Disease (CAD), Cancer, CVA/TIA, Diabetes Mellitus, Hyperlipidemia, Hypertension, Myocardial Infarction ([place]), Osteoarthritis (OA) Additional Past Medical History / Comment(s): 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, 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, [place] x 2, varicose veins, diverticulitis, hx skin cancer Last Myocardial Infarction Date:: 2004 approx History of Any Multi-Drug Resistant Organisms: None Reported Past Surgical History: Coronary Bypass/CABG, Heart Catheterization, Hernia Repair Additional Past Surgical History / Comment(s): stents in left carotid artery, CABG approx 2004, skin cancer removed from back, colonoscopy, hernia surgery Past Anesthesia/Blood Transfusion Reactions: No Reported Reaction Past Psychological History: No Psychological Hx Reported Smoking Status: Former smoker Past Alcohol Use History: Rare Additional Past Alcohol Use History / Comment(s): quit smoking > 20 yrs ago, smoked for 15-20 yrs, 1 ppd Past Drug Use History: None Reported - Past Family History Brother(s) Family Medical History: Cancer Medications and Allergies Home Medications Medication Instructions Recorded Confirmed Type Fenofibrate 160 mg PO DAILY 08/26/16 06/25/22 History Metoprolol Succinate [Toprol XL] 100 mg PO DAILY 08/26/16 06/25/22 History Ubidecarenone [Co Q-10] 200 mg PO W/SUPPER 08/26/16 06/25/22 History Cholecalciferol [Vitamin D3 (25 25 mcg PO W/SUPPER 07/26/19 06/25/22 History Mcg = 1000 Iu)] Insulin Glargine,Hum.rec.anlog 12 units SQ HS 07/26/19 06/25/22 History [Lantus Solostar Pen] NIFEdipine [NIFEdipine ER] 90 mg PO DAILY 07/26/19 06/25/22 History Metoprolol Succinate (ER) [Toprol 25 mg PO DAILY tab.er.24h 07/28/19 06/25/22 Rx XL] Aspirin EC [Ecotrin] 325 mg PO W/SUPPER 03/14/21 06/25/22 History Cetirizine HCl [Zyrtec] 10 mg PO DAILY 03/14/21 06/25/22 History Famotidine [Pepcid] 10 mg PO BID-W/MEALS 03/14/21 06/25/22 History hydrALAZINE HCL [Apresoline] 100 mg PO BID-W/MEALS 03/14/21 06/25/22 History levETIRAcetam [Keppra] 750 mg PO BID-W/MEALS 03/14/21 06/25/22 History ramipriL 2.5 mg PO DAILY 03/14/21 06/25/22 History Ferrous Sulfate [Feosol] 325 mg PO MOWEFR 06/25/22 06/25/22 History Furosemide [Lasix] 20 mg PO DAILY 06/25/22 06/25/22 History Allergies Allergy/AdvReac Type Severity Reaction Status Date / Time erythromycin base Allergy Dyspnea Verified 06/25/22 07:11 iodine Allergy Dyspnea Verified 06/25/22 07:11 minoxidil Allergy Unknown Verified 06/25/22 07:11 Penicillins Allergy Rash/Hives, Verified 06/25/22 07:11 chest tightness sitagliptin [From Januvia] Allergy "bad runny Verified 06/25/22 07:11 nose" ticagrelor [From Brilinta] Allergy Chest Verified 06/25/22 07:11 Pain/SOB atorvastatin AdvReac pain Verified 06/25/22 07:11 clopidogrel [From Plavix] AdvReac bleeding Verified 06/25/22 07:11 Physical Exam Vitals: Vital Signs Temp Pulse Resp BP Pulse Ox 06/25/22 07:08 52 L 16 180/63 97 06/25/22 05:43 54 L 18 167/89 98 06/25/22 05:00 89 16 144/61 98 06/25/22 03:03 56 L 18 98 06/25/22 02:56 97.4 F L 58 L 18 164/60 84 L Intake and Output 06/24/22 06/25/22 06/25/22 22:59 06:59 14:59 Other: Weight 81.647 kg 81.647 kg Results CBC & Chem 7: 06/25/22 02:58 06/25/22 02:58 Labs: Abnormal Lab Results - Last 24 Hours (Table) 06/25/22 06/25/22 06/25/22 Range/Units 02:58 02:58 02:58 RBC 4.09 L (4.30-5.90) m/uL Hgb 12.3 L (13.0-17.5) gm/dL Hct 38.9 L (39.0-53.0) % INR 1.2 H (<1.2) D-Dimer 1.65 H (<0.60) mg/L FEU Chloride 110 H (98-107) mmol/L BUN 55 H (9-20) mg/dL Creatinine 2.17 H (0.66-1.25) mg/dL Albumin 3.3 L (3.5-5.0) g/dL Thrombosis Risk Factor Assmnt - Choose All That Apply Any of the Below Risk Factors Present?: Yes Each Factor Represents 1 point: Swollen legs (current), Varicose veins Other Risk Factors: Yes Each Risk Factor Represents 3 Points: Age 75 years or older Other congenital or acquired thrombophilia - If yes, enter type in comment: Yes Thrombosis Risk Factor Assessment Total Risk Factor Score: 5 Thrombosis Risk Factor Assessment Level: High Risk
[2022-06-25] MEDS ORDERED: ONDANSETRON 4 MG/2 ML VIAL IVP PRN (08:22)
[2022-06-25] MEDS ORDERED: MELATONIN 3 MG TABLET PO PRN (08:22)
[2022-06-25] MEDS ORDERED: BENZOCAINE/MENTHOL LOZENG 1 EACH LOZENGE MUCOUS MEM PRN (08:22)
[2022-06-25] MEDS ORDERED: traMADol 50 MG TAB PO PRN (08:22)
[2022-06-25] MEDS ORDERED: oxyCODONE-APAP 5-325MG 1 EACH TAB PO PRN (08:22)
[2022-06-25] MEDS ORDERED: ACETAMINOPHEN TAB 325 MG TAB PO PRN (08:22)
[2022-06-25] MEDS: METOPROLOL SUCCINATE (ER) 25 MG TAB.ER.24H PO SCH (09:59)
[2022-06-25] MEDS: METOPROLOL SUCCINATE (ER) 100 MG TAB.ER.24H PO SCH (09:59)
[2022-06-25] MEDS: lisinopriL 10 MG TAB PO SCH (09:59)
[2022-06-25] MEDS: HEPARIN SODIUM,PORCINE/PF 5,000 UNIT/0.5 ML SYRINGE SQ SCH ×2 (09:59→21:27)
[2022-06-25] MEDS: NIFEdipine XL 90 MG TAB.ER.24 PO SCH (09:59)
[2022-06-25 11:12] LABS: Glucose,Whole Blood 135 mg/dL (70-110)
[2022-06-25 13:49] LABS: VBG PH 7.35 (7.31-7.41)
[2022-06-25 16:41] LABS: Glucose,Whole Blood 249 mg/dL (70-110)
[2022-06-25] MEDS ORDERED: DEXTROSE 50% SYRINGE 50 ML IVP PRN ×2 (17:39)
[2022-06-25] MEDS ORDERED: IPRATROPIUM-ALBUTEROL 3 ML NEB INHALATION PRN (18:18)
[2022-06-25] MEDS: IPRATROPIUM-ALBUTEROL 3 ML NEB INHALATION SCH (20:15)
[2022-06-25 21:04] LABS: Glucose,Whole Blood 318 mg/dL (70-110)
[2022-06-25] MEDS: INSULIN ASPART (NovoLOG) 100 UNIT/ML VIAL SQ SCH (21:27)
[2022-06-25] MEDS: DEXAMETHASONE SOD PHOSPHATE 10 MG/ML 1 ML VIAL IVP SCH (21:27)
[2022-06-25] MEDS: DOXYCYCLINE 100 MG CAP PO SCH (21:28)
[2022-06-25] MEDS: ASPIRIN 325 MG TAB PO SCH (21:28)
[2022-06-25] MEDS: INSULIN DETEMIR (LEVEMIR) 100 UNIT/ML SYR SQ SCH (21:28)
[2022-06-26 06:13] LABS: Glucose,Whole Blood 196 mg/dL (70-110)
[2022-06-26] MEDS: FAMOTIDINE 20 MG TAB PO SCH ×2 (06:29→16:51)
[2022-06-26] MEDS: hydrALAZINE HCL 50 MG TAB PO SCH ×3 (06:30→21:34)
[2022-06-26] MEDS: INSULIN ASPART (NovoLOG) 100 UNIT/ML VIAL SQ SCH ×4 (06:30→21:35)
[2022-06-26] MEDS: DEXAMETHASONE SOD PHOSPHATE 10 MG/ML 1 ML VIAL IVP SCH (08:38)
[2022-06-26] MEDS: METOPROLOL SUCCINATE (ER) 25 MG TAB.ER.24H PO SCH (08:39)
[2022-06-26] MEDS: lisinopriL 10 MG TAB PO SCH (08:39)
[2022-06-26] MEDS: DOXYCYCLINE 100 MG CAP PO SCH ×2 (08:39→21:34)
[2022-06-26] MEDS: METOPROLOL SUCCINATE (ER) 100 MG TAB.ER.24H PO SCH (08:39)
[2022-06-26] MEDS: FUROSEMIDE 20 MG TAB PO SCH (08:39)
[2022-06-26] MEDS: FERROUS SULFATE 325 MG TAB PO SCH (08:39)
[2022-06-26] MEDS: NIFEdipine XL 90 MG TAB.ER.24 PO SCH (08:39)
[2022-06-26] MEDS: FENOFIBRATE 160 MG TAB PO SCH (08:39)
[2022-06-26] MEDS: HEPARIN SODIUM,PORCINE/PF 5,000 UNIT/0.5 ML SYRINGE SQ SCH ×2 (08:40→21:34)
[2022-06-26 09:05] LABS: Basophils # (A) 0.02 X 10*3/uL (0.00-0.10); Basophils % (A) 0.3 %; Eosinophils # (A) 0 X 10*3/uL (0.04-0.35); Eosinophils % (A) 0 %; HCT 36.4 % (39.6-50.0); HGB 11.5 g/dL (13.0-17.0); Immature Grans, Automated 1.1 %; Lymphocytes % (A) 14.1 %; MCH 29.9 pg (27.0-32.0); MCHC 31.6 g/dL (32.0-37.0); MCV 94.5 fL (80.0-97.0); Mean Platelet Volume 11.2 fL (9.5-12.2); Monocytes # (A) 0.24 X 10*3/uL (0.20-1.00); Monocytes % (A) 3.8 %; NRBC Per 100 WBC 0 /100 WBCS (0.0-0.0); Neutrophils # (A) 5.16 X 10*3/uL (1.80-7.70); Neutrophils % (A) 80.7 %; Platelet Count 234 X 10*3/uL (140-440); RBC 3.85 X 10*6/uL (4.40-5.60); RDW 15.2 % (11.5-14.5); WBC 6.39 X 10*3/uL (4.50-10.00)
[2022-06-26] MEDS: IPRATROPIUM-ALBUTEROL 3 ML NEB INHALATION SCH ×4 (09:14→21:09)
[2022-06-26 09:33] LABS: ALT 9 U/L (10-49); AST 16 U/L (14-35); African American GFR (CKD) 21.6 (60.0-200.0); Albumin 3.2 g/dL (3.8-4.9); Alkaline Phosphatase 51 U/L (41-126); BUN/Creat Ratio 20.33 Ratio (12.00-20.00); Calcium 8.6 mg/dL (8.7-10.3); Carbon Dioxide 25.5 mmol/L (20.0-27.5); Chloride 106 mmol/L (96-109); Globulin 2.9 g/dL (1.6-3.3); Glucose 202 mg/dL (70-110); Magnesium 2.2 mg/dL (1.5-2.4); Non-African American GFR(CKD) 18.6 (60.0-200.0); Potassium 5.2 mmol/L (3.5-5.5); Sodium 142 mmol/L (135-145); Total Bilirubin <0.15 mg/dL (0.30-1.20); Total Protein 6.1 g/dL (6.2-8.2)
[2022-06-26 11:21] LABS: Glucose,Whole Blood 277 mg/dL (70-110)
--- NOTE | 2022-06-26 13:53 | P.CNPUL ---
History of Present Illness Consult date: 06/26/22 Requesting physician: Stephan Watkins Reason for consult: dyspnea, cough, hypoxemia, pneumonia, pleural effusion, abnormal CXR/CT Chief complaint: Shortness of breath, CHF. History of present illness: Pulmonary consult dated 06/26/2022. 82-year-old male, seen in the emergency department, on June 25, for shortness of breath. The patient was brought into the emergency department by EMS. The patient apparently had a saturation in the mid 80s, on room air, on arrival, to the emergency department. She does not use oxygen at home. He apparently been having increasing shortness of breath for a few days prior to admission. She denied any chest pain or chest discomfort. He denied any fever or chills. There was no cough or phlegm production. The patient is not a particularly good historian, and did not know the name of his current doctors. The patient has a history of coronary disease, CVA, diabetes, hyperlipidemia, hypertension, myocardial infarction, and skin cancer. The patient has also undergone a bypass grafting. He did smoke cigarettes for many years. He quit many years back. It's hard to quantitate how much she smoked, may be one pack a day for 20 years. White count 6.39, hemoglobin 11.5, hematocrit 36.4, and platelet count 234,000. Venous blood gas showed a pCO2 45 and a pH is 7.35. Sodium 142, potassium 5.2, chlorides 106, CO2 26, anion gap 11, BUN 61, and creatinine 3. Testing for influenza, respiratory syncytial virus, and coronavirus, all negative. N-terminal proBNP was 3,110. Chest x-ray was consistent with either CHF, or possible left lower lobe pneumonia. CT angiogram was negative for pulmonary embolism, and showed bilateral lower lobe i nfiltrates, which could relate to pneumonia, effusions, or atelectasis. Review of Systems REVIEW OF SYSTEMS: CONSTITUTIONAL: [Negative.] NEUROLOGIC: [ Negative.] HEENT: [ Negative.] CARDIAC: [Negative.] PULMONARY: Shortness of breath. GI: [Negative.] : [Negative.] RHEUMATOLOGIC: [ Negative.] IMMUNOLOGIC: [ Negative.] ENDOCRINE: [Negative. 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, OR x 2, varicose veins, diverticulitis, hx skin cancer Last Myocardial Infarction Date:: 2004 approx History of Any Multi-Drug Resistant Organisms: None Reported Past Surgical History: Coronary Bypass/CABG, Heart Catheterization, Hernia Repair Additional Past Surgical History / Comment(s): stents in left carotid artery, CABG approx 2004, skin cancer removed from back, colonoscopy, hernia surgery Past Anesthesia/Blood Transfusion Reactions: No Reported Reaction Past Psychological History: No Psychological Hx Reported Smoking Status: Former smoker Past Alcohol Use History: Rare Additional Past Alcohol Use History / Comment(s): quit smoking > 20 yrs ago, smoked for 15-20 yrs, 1 ppd Past Drug Use History: None Reported - Past Family History Brother(s) Family Medical History: Cancer Medications and Allergies Home Medications Medication Instructions Recorded Confirmed Type Fenofibrate 160 mg PO DAILY 08/26/16 06/25/22 History Metoprolol Succinate [Toprol XL] 100 mg PO DAILY 08/26/16 06/25/22 History Ubidecarenone [Co Q-10] 200 mg PO W/SUPPER 08/26/16 06/25/22 History Cholecalciferol [Vitamin D3 (25 25 mcg PO W/SUPPER 07/26/19 06/25/22 History Mcg = 1000 Iu)] Insulin Glargine,Hum.rec.anlog 12 units SQ HS 07/26/19 06/25/22 History [Lantus Solostar Pen] NIFEdipine [NIFEdipine ER] 90 mg PO DAILY 07/26/19 06/25/22 History Metoprolol Succinate (ER) [Toprol 25 mg PO DAILY tab.er.24h 07/28/19 06/25/22 Rx XL] Aspirin EC [Ecotrin] 325 mg PO W/SUPPER 03/14/21 06/25/22 History Cetirizine HCl [Zyrtec] 10 mg PO DAILY 03/14/21 06/25/22 History Famotidine [Pepcid] 10 mg PO BID-W/MEALS 03/14/21 06/25/22 History hydrALAZINE HCL [Apresoline] 100 mg PO BID-W/MEALS 03/14/21 06/25/22 History levETIRAcetam [Keppra] 750 mg PO BID-W/MEALS 03/14/21 06/25/22 History ramipriL 2.5 mg PO DAILY 03/14/21 06/25/22 History Ferrous Sulfate [Feosol] 325 mg PO MOWEFR 06/25/22 06/25/22 History Furosemide [Lasix] 20 mg PO DAILY 06/25/22 06/25/22 History Allergies Allergy/AdvReac Type Severity Reaction Status Date / Time erythromycin base Allergy Dyspnea Verified 06/25/22 07:11 iodine Allergy Dyspnea Verified 06/25/22 07:11 minoxidil Allergy Unknown Verified 06/25/22 07:11 Penicillins Allergy Rash/Hives, Verified 06/25/22 07:11 chest tightness sitagliptin [From Januvia] Allergy "bad runny Verified 06/25/22 07:11 nose" ticagrelor [From Brilinta] Allergy Chest Verified 06/25/22 07:11 Pain/SOB atorvastatin AdvReac pain Verified 06/25/22 07:11 clopidogrel [From Plavix] AdvReac bleeding Verified 06/25/22 07:11 Physical Exam Osteopathic Statement: *. No significant issues noted on an osteopathic structural exam other than those noted in the History and Physical/Consult. Vitals: Vital Signs Temp Pulse Pulse Resp BP Pulse Ox 06/26/22 12:22 72 06/26/22 12:14 68 06/26/22 09:25 60 06/26/22 09:14 53 L 98 06/26/22 08:22 98 06/26/22 08:00 97.4 F L 51 L 14 154/70 92 L 06/26/22 02:00 98.2 F 51 L 18 147/62 93 L 06/25/22 20:25 60 06/25/22 20:15 58 L 06/25/22 20:00 97.5 F L 52 L 18 157/72 97 06/25/22 14:00 97.4 F L 54 L 15 144/64 97 Intake and Output 06/25/22 06/26/22 06/26/22 22:59 06:59 14:59 Output Total 500 900 Balance -500 -900 Output: Urine 500 900 Other: Voiding Method External Catheter External Catheter # Voids 1 # Bowel Movements 1 No acute distress, oriented 3. Currently on 4 L of oxygen. The patient is a very poor historian. No conversational dyspnea or use of accessory muscles. HEENT examination is grossly unremarkable. Neck supple. Full range of motion. No adenopathy thyromegaly or neck vein distention. Cardiovascular examination reveals regular rhythm rate. S1-S2 normal. No S3 or S4. No discernible murmur noted. Heart rate 72 bpm. Lungs reveal scattered rhonchi and bibasilar crackles. No wheezes. Breath sounds are equal bilaterally. Saturations are 98%. Abdomen soft bowel sounds are heard. No masses or tenderness. Extremities are intact. No cyanosis or clubbing. 1+ edema is noted. Skin is without rash or lesion. Neurologic examination is brief but nonfocal. Results - Laboratory Findings CBC and BMP: 06/26/22 06:04 06/26/22 06:04 PT/INR, D-dimer PT 12.0 sec (9.0-12.0) 06/25/22 02:58 INR 1.2 (<1.2) H 06/25/22 02:58 D-Dimer 1.65 mg/L FEU (<0.60) H 06/25/22 02:58 Abnormal lab findings: Abnormal Labs 06/25/22 06/25/22 06/25/22 02:58 02:58 02:58 RBC 4.09 L Hgb 12.3 L Hct 38.9 L MCHC RDW Immature Gran # Eosinophils # INR 1.2 H D-Dimer 1.65 H Chloride 110 H BUN 55 H Creatinine 2.17 H Est GFR (CKD-EPI)AfAm Est GFR (CKD-EPI)NonAf BUN/Creatinine Ratio Glucose POC Glucose (mg/dL) Calcium Total Bilirubin ALT Total Protein Albumin 3.3 L Albumin/Globulin Ratio 06/25/22 06/25/22 06/25/22 11:10 16:39 21:02 RBC Hgb Hct MCHC RDW Immature Gran # Eosinophils # INR D-Dimer Chloride BUN Creatinine Est GFR (CKD-EPI)AfAm Est GFR (CKD-EPI)NonAf BUN/Creatinine Ratio Glucose POC Glucose (mg/dL) 135 H 249 H 318 H Calcium Total Bilirubin ALT Total Protein Albumin Albumin/Globulin Ratio 06/26/22 06/26/22 06/26/22 06:04 06:04 06:11 RBC 3.85 L Hgb 11.5 L Hct 36.4 L MCHC 31.6 L RDW 15.2 H Immature Gran # 0.07 H Eosinophils # 0 L INR D-Dimer Chloride BUN 61.0 H Creatinine 3.0 H Est GFR (CKD-EPI)AfAm 21.6 L Est GFR (CKD-EPI)NonAf 18.6 L BUN/Creatinine Ratio 20.33 H Glucose 202 H POC Glucose (mg/dL) 196 H Calcium 8.6 L Total Bilirubin <0.15 L ALT 9 L Total Protein 6.1 L Albumin 3.2 L Albumin/Globulin Ratio 1.10 L 06/26/22 11:20 RBC Hgb Hct MCHC RDW Immature Gran # Eosinophils # INR D-Dimer Chloride BUN Creatinine Est GFR (CKD-EPI)AfAm Est GFR (CKD-EPI)NonAf BUN/Creatinine Ratio Glucose POC Glucose (mg/dL) 277 H Calcium Total Bilirubin ALT Total Protein Albumin Albumin/Globulin Ratio - Diagnostic Findings Chest x-ray: image reviewed CT scan - chest: image reviewed Assessment and Plan Assessment: Shortness of breath, which may relate to underlying CHF, and/or pneumonia. N- terminal proBNP was elevated. Pro-calcitonin level is pending. The patient doesn't really have any other findings to suggest pneumonia such as fever, chills, cough, phlegm production, or elevated white blood count. History of coronary artery disease, status post bypass grafting. Prior history of myocardial infarction. History of CVA. History of diabetes mellitus. History of hypertension. History of hyperlipidemia. History of skin cancer. History of osteoarthritis. History of diverticular disease. Plan: Plan dated 06/26/2022. The patient is currently on ceftriaxone and doxycycline. A pro-calcitonin level is currently pending. The patient really does not have any other findings to suggest pneumonia, as he denies any cough, fever, chills, phlegm production, and has a normal white blood cell count. Additional recommendations and suggestions are forthcoming. The patient does not need corticosteroids at this time. We will continue to follow make recommendations along the way. Prognosis is guarded. Time with Patient: Greater than 30
[2022-06-26 16:07] LABS: Glucose,Whole Blood 320 mg/dL (70-110)
[2022-06-26] MEDS: ASPIRIN 325 MG TAB PO SCH (16:51)
[2022-06-26] MEDS: SODIUM CHLORIDE 0.9% 1,000 ML IV SCH (16:51)
--- NOTE | 2022-06-26 17:00 | P.PN ---
Subjective Progress Note Date: 06/26/22 Hospital course: Patient is a very pleasant 82-year-old male with a past medical history is CAD with CABG, multiple CVAs with right-sided deficits, hypertension, h yperlipidemia, insulin-dependent diabetes mellitus, stage III chronic kidney disease with baseline creatinine of 2.0, and dementia. He lives at home with and reports walking with a walker. Patient presented to the emergency department with the chief complaint of shortness of breath beginning approximately one week ago and progressively worsening. He arrived via EMS and per review of documentation, patient was initially found to be hypoxic with SpO2 of 84% requiring oxygen supplementation. Patient underwent full evaluation in the emergency department. Chest x-ray was completed and upon review it as showing interstitial edema and blunting of left costophrenic angle concerning for heart failure and pneumonia. EKG showing sinus bradycardia at 57 bpm. Labs completed and reviewed. CBC revealing normocytic anemia with hemoglobin of 12.3 which is at baseline, BMP consistent with stage IIIc daily with BUN of 55, creatinine 2.17, and GFR of 28 with baseline creatinine of 2.0. Coagulation profile revealing an elevated d-dimer of 1.65. CTA chest was completed. Upon review, CTA chest showing no evidence of pulmonary emboli revealing bilateral lower lobe pneumonia and atelectasis with pleural effusions, radiologist also reporting lung abnormalities with enlarged mediastinal lymph nodes which are reportedly new when compared to previous CT completed 06/14/19. Patient started on antibiotics Rocephin and doxycycline for treatment of community-acquired pneumonia and being admitted under our services with consultation to pulmonology. Physical exam: Patient seen and fully evaluated at bedside this morning he was sitting up in chair and appeared much more alert. Patient reports feeling much better than he did yesterday. Patient reports, "I really felt bad the past few days". He reports breathing much better and O2 has been decreased to 2 L this morning. Patient denies having any headache, lightheadedness, dizziness, chest pain, palpitations, nausea, vomiting, or any other complaints. At time of assessment morning labs have not resulted, will follow-up. On follow-up morning labs resulted and reviewed. CBC showing continued normocytic anemia with stable hemoglobin at 11.5. BMP revealing acute kidney injury on chronic kidney disease with BUN of 61, creatinine 3.0, and GFR of 18.6. Pro-calcitonin also elevated at 0.25. Order placed for urinalysis, bladder management, ultrasound renal/bladder, and nephrology consult. Nephrotoxic medications Lasix and lisinopril held at this time and patient's hydralazine to be increased to ensure optimized blood pressure management. Vital signs reviewed and stable. General: patient appears acutely ill, appears normal range Derm: Skin warm and dry, normal coloration for ethnicity. Head: Atraumatic, normocephalic and symmetric. Eyes: EOMs intact, no lid lag, and anicteric sclera Mouth: no lip lesions, mucus membranedry Cardiovascular: regular rate and rhythm with normal S1S2, systolic murmur, positive posterior tibial pulses bilaterally, and cap refill < 2 seconds. Lungs: Respirations even, regular, and unlabored on 2 L O2 via nasal cannula . Lungs diffuse scattered rhonchi with diffuse expiratory wheezes bilaterally. No accessory muscle usage. Abdominal: soft, nontender to palpation, no guarding, no appreciable organomegaly Ext: Movement and sensation intact in all 4 extremities. Patient with significant right-sided weakness, he is able to move arm slightly 1 out of 5 strength and hand is contracted. Right lower extremity weakness 2 out of 5 s trength. No gross muscle atrophy, no edema, no contractures. Bilateral lower extremities dry and scaly with venous discoloration. Neuro: Speech clear, face symmetrical. GCS 14. Patient with right-sided weakness. Psych: Alert and oriented to person and place. Appropriate and pleasant affect. Assessment and Plan of Care: Bilateral lower lobe pneumonia Acute respiratory failure with hypoxia secondary to above Enlarged mediastinal lymph nodes, newly noted on CT Generalized weakness, progressively worsened 1 week -Oxygenation to be administered and titrated as needed to maintain SPO2 equal to or greater than 92% -Telemetry monitoring. -Monitor Pulse-oximetry -Duonebs scheduled and as needed for SOB and/or wheezing -Incentive Spirometry -Steroids: Decadron -Antibiotics: Rocephin and doxycycline -Sputum culture -Covid PCR, influenza A and B PCR, and RSV negative -Pro-calcitonin slightly elevated at 0.25. -Pulmonology consulted regarding newly noted enlarged mediastinal lymph nodes, appreciate recommendations -PT/OT consulted for evaluation and possible placement secondary to progressively worsening generalized weakness Acute kidney injury on chronic kidney disease stage III -Baseline creatinine 2.0. Morning labs revealing BUN 61.0 and creatinine of 3.0 with GFR of 18.6. -Hold nephrotoxic medications including lisinopril and Lasix and start patient on gentle IV fluid hydration with 0.9% normal saline at 75 mL per hour. -Documented urinary output over the past 24 hours 1400 mL -We will obtain a urinalysis with reflex to culture -Bladder management -Renal/bladder ultrasound -Nephrology consulted Hypertensive urgency History of CAD with CABG History of hypertension -Hypertensive urgency with blood pressure 213/75 and heart rate of 57. Hypertensive urgency has improved and has been controlled since resuming home medication regimen. However now secondary to acute kidney injury on chronic kidney disease with an upper all and Lasix held and patient's hydralazine to be increased to 100 mg by mouth 3 times daily in attempts to optimize blood pressures. -Monitor vital signs closely. Lisinopril and Lasix discontinued at this time secondary to acute kidney injury, patient to continue with Procardia, metoprolol, and hydralazine to be increased to 100 mg 3 times daily in attempts to optimize blood pressures. -Continue heart healthy diet. History of hyperlipidemia -Home medications reviewed and reordered, patient to continue fenofibrate History of CVAs with right-sided deficits -Continue antiplatelet therapy with aspirin 325 mg daily. -Heparin for DVT prophylaxis. -Provide safe and supportive care with assistance as needed. -PT/OT consulted secondary to worsening generalized weakness over the past week. -Fall precautions CODE STATUS: Full code DVT prophylaxis: heparin Discussed with: patient and RN Anticipated discharge date: clinical course to determine Anticipated discharge place: home A total of 34 minutes was spent on the care of this complex patient more than 50% of the time was spent in counseling and care coordination. Prabhu Sahu NP rendered care for this patient independently, reviewed the findings and plan as documented in the note above. I did not physically speak with or examine the patient on this date. Objective - Vital Signs Vital signs: Vital Signs Temp 97.4 F L 06/26/22 08:00 Pulse 53 L 06/26/22 09:14 Resp 14 06/26/22 08:00 BP 154/70 06/26/22 08:00 Pulse Ox 98 06/26/22 09:14 FiO2 Intake & Output 06/25/22 06/26/22 06/26/22 18:59 06:59 18:59 Output Total 500 900 Balance -500 -900 Weight 81.647 kg Output: Urine 500 900 Other: Voiding Method External Catheter # Bowel Movements 1 - Labs CBC & Chem 7: 06/26/22 06:04 06/26/22 06:04 Labs: Abnormal Lab Results - Last 24 Hours (Table) 06/25/22 06/25/22 06/25/22 Range/Units 11:10 16:39 21:02 RBC (4.40-5.60) X 10*6/uL Hgb (13.0-17.0) g/dL Hct (39.6-50.0) % MCHC (32.0-37.0) g/dL RDW (11.5-14.5) % Immature Gran # (0.00-0.04) X 10*3/uL Eosinophils # (0.04-0.35) X 10*3/uL POC Glucose (mg/dL) 135 H 249 H 318 H (70-110) mg/dL 06/26/22 06/26/22 Range/Units 06:04 06:11 RBC 3.85 L (4.40-5.60) X 10*6/uL Hgb 11.5 L (13.0-17.0) g/dL Hct 36.4 L (39.6-50.0) % MCHC 31.6 L (32.0-37.0) g/dL RDW 15.2 H (11.5-14.5) % Immature Gran # 0.07 H (0.00-0.04) X 10*3/uL Eosinophils # 0 L (0.04-0.35) X 10*3/uL POC Glucose (mg/dL) 196 H (70-110) mg/dL Microbiology - Last 24 Hours (Table) 06/25/22 02:55 Blood Culture - Preliminary Blood No Growth after 24 hours
--- NOTE | 2022-06-26 18:22 | US ---
EXAMINATION TYPE: US kidneys/renal and bladder DATE OF EXAM: 06/26/2022 COMPARISON: 07/21/20 CLINICAL HISTORY: TAWANNA. TAWANNA EXAM MEASUREMENTS: Right Kidney: 12.0 x 5.4 x 5.2 cm Left Kidney: 11.7 x 5.0 x 5.6 cm Right Kidney: 2 cysts visualized. Largest = 2.7 x 2.3 x 1.8 cm in inferior pole Left Kidney: Cyst visualized in inferior pole measuring 4.3 x 3.5 x 3.4cm Bladder: wnl Bilateral Jets seen: Yes Increased echogenicity bilaterally. There is no evidence for hydronephrosis at this point in time. No nephrolithiasis is seen. No livier s are identified. The urinary bladder is anechoic. Bilateral ureteral jets are seen. IMPRESSION: * No evidence of obstructive uropathy. * Increased echotexture to kidneys suggestive of medical renal disease.
[2022-06-26 21:24] LABS: Glucose,Whole Blood 260 mg/dL (70-110)
[2022-06-26] MEDS: INSULIN DETEMIR (LEVEMIR) 100 UNIT/ML SYR SQ SCH (21:34)
[2022-06-26 22:04] LABS: Glucose,Whole Blood 271 mg/dL (70-110)
[2022-06-27 01:21] LABS: Appearance,Urine Clear (Clear); Bilirubin,Urine Negative (Negative); Blood,Urine Negative (Negative); Color,Urine Yellow; Glucose,Urine (UA) Trace (Negative); Ketones,Urine Negative (Negative); Leukocyte Esterase,Urine Negative (Negative); Nitrite,Urine Negative (Negative); Protein,Urine 1+ (Negative); RBC,Urine <1 /hpf (0-5); Specific Gravity,Urine 1.029 (1.001-1.035); Urobilinogen,Urine <2.0 mg/dL (<2.0); WBC,Urine 1 /hpf (0-5)
[2022-06-27 06:27] LABS: Glucose,Whole Blood 63 mg/dL (70-110)
[2022-06-27] MEDS: INSULIN ASPART (NovoLOG) 100 UNIT/ML VIAL SQ SCH ×4 (06:28→20:08)
[2022-06-27 06:49] LABS: Glucose,Whole Blood 67 mg/dL (70-110)
[2022-06-27 07:20] LABS: Glucose,Whole Blood 108 mg/dL (70-110)
[2022-06-27] MEDS: IPRATROPIUM-ALBUTEROL 3 ML NEB INHALATION SCH ×4 (07:21→20:33)
[2022-06-27 07:35] LABS: African American GFR (CKD) 19 (>60 ml/min/1.73 sqM); Anion Gap 8 mmol/L; Blood Urea Nitrogen 75 mg/dL (9-20); Carbon Dioxide 24 mmol/L (22-30); Chloride 109 mmol/L (98-107); Glucose 70 mg/dL (74-99); Non-African American GFR(CKD) 16 (>60 ml/min/1.73 sqM); Potassium 4.8 mmol/L (3.5-5.1); Sodium 141 mmol/L (137-145)
[2022-06-27] MEDS: FAMOTIDINE 20 MG TAB PO SCH ×2 (09:15→17:40)
[2022-06-27] MEDS: METOPROLOL SUCCINATE (ER) 100 MG TAB.ER.24H PO SCH (09:15)
[2022-06-27] MEDS: SODIUM CHLORIDE 0.9% 1,000 ML IV SCH (09:15)
[2022-06-27] MEDS: DOXYCYCLINE 100 MG CAP PO SCH ×2 (09:16→20:13)
[2022-06-27] MEDS: FENOFIBRATE 160 MG TAB PO SCH (09:16)
[2022-06-27] MEDS: NIFEdipine XL 90 MG TAB.ER.24 PO SCH (09:17)
[2022-06-27] MEDS: HEPARIN SODIUM,PORCINE/PF 5,000 UNIT/0.5 ML SYRINGE SQ SCH ×2 (09:17→20:13)
[2022-06-27] MEDS: METOPROLOL SUCCINATE (ER) 25 MG TAB.ER.24H PO SCH (09:17)
[2022-06-27] MEDS: hydrALAZINE HCL 50 MG TAB PO SCH ×3 (09:17→20:13)
[2022-06-27 11:30] LABS: Glucose,Whole Blood 76 mg/dL (70-110)
--- NOTE | 2022-06-27 11:54 | P.NPCON ---
History of Present Illness - Reason for Consult acute renal failure, chronic renal failure - History of Present Illness Reason for consultation: Acute kidney injury on chronic kidney disease History of present illness: Patient is a 82-year-old male seen in consultation for acute kidney injury on chronic kidney disease. Patient has chronic kidney disease stage IIIB/4 with baseline creatinine in the range of 1.5-2. Patient was last seen in the office in 2018. Patient presented to the hospital due to shortness of breath. Patient was noted to be hypoxic with oxygen saturation of 84% on room air. Patient does not wear oxygen at home. Patient is not a very reliable historian and doesn't really recall S2 why he is here. He is currently being treated for pneumonia. Afebrile. Blood pressure stable. On 4 L nasal cannula. Has been voiding. Has an external catheter. He was taking MARIKA inhibitor as well as Lasix at home which are both currently held. He is currently receiving normal saline at 75 mL an hour. Creatinine on admission was 2.17 and is up at 3.34 today. Renal ultrasound showed no evidence of hydronephrosis. Patient does have long- standing history of diabetes and is maintained on insulin. Vital signs are stable. General: No acute distress. HEENT: Head exam is unremarkable. On nasal cannula. LUNGS: Breath sounds decreased. HEART: Rate and Rhythm are regular. ABDOMEN: Soft, no distention. EXTREMITITES: Trace edema. 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, ME x 2, varicose veins, diverticulitis, hx skin cancer Last Myocardial Infarction Date:: 2004 approx History of Any Multi-Drug Resistant Organisms: None Reported Past Surgical History: Coronary Bypass/CABG, Heart Catheterization, Hernia Repair Additional Past Surgical History / Comment(s): stents in left carotid artery, CABG approx 2004, skin cancer removed from back, colonoscopy, hernia surgery Past Anesthesia/Blood Transfusion Reactions: No Reported Reaction Past Psychological History: No Psychological Hx Reported Smoking Status: Former smoker Past Alcohol Use History: Rare Additional Past Alcohol Use History / Comment(s): quit smoking > 20 yrs ago, smoked for 15-20 yrs, 1 ppd Past Drug Use History: None Reported - Past Family History Brother(s) Family Medical History: Cancer Medications and Allergies Home Medications Medication Instructions Recorded Confirmed Type Fenofibrate 160 mg PO DAILY 08/26/16 06/25/22 History Metoprolol Succinate [Toprol XL] 100 mg PO DAILY 08/26/16 06/25/22 History Ubidecarenone [Co Q-10] 200 mg PO W/SUPPER 08/26/16 06/25/22 History Cholecalciferol [Vitamin D3 (25 25 mcg PO W/SUPPER 07/26/19 06/25/22 History Mcg = 1000 Iu)] Insulin Glargine,Hum.rec.anlog 12 units SQ HS 07/26/19 06/25/22 History [Lantus Solostar Pen] NIFEdipine [NIFEdipine ER] 90 mg PO DAILY 07/26/19 06/25/22 History Metoprolol Succinate (ER) [Toprol 25 mg PO DAILY tab.er.24h 07/28/19 06/25/22 Rx XL] Aspirin EC [Ecotrin] 325 mg PO W/SUPPER 03/14/21 06/25/22 History Cetirizine HCl [Zyrtec] 10 mg PO DAILY 03/14/21 06/25/22 History Famotidine [Pepcid] 10 mg PO BID-W/MEALS 03/14/21 06/25/22 History hydrALAZINE HCL [Apresoline] 100 mg PO BID-W/MEALS 03/14/21 06/25/22 History levETIRAcetam [Keppra] 750 mg PO BID-W/MEALS 03/14/21 06/25/22 History ramipriL 2.5 mg PO DAILY 03/14/21 06/25/22 History Ferrous Sulfate [Feosol] 325 mg PO MOWEFR 06/25/22 06/25/22 History Furosemide [Lasix] 20 mg PO DAILY 06/25/22 06/25/22 History Allergies Allergy/AdvReac Type Severity Reaction Status Date / Time erythromycin base Allergy Dyspnea Verified 06/25/22 07:11 iodine Allergy Dyspnea Verified 06/25/22 07:11 minoxidil Allergy Unknown Verified 06/25/22 07:11 Penicillins Allergy Rash/Hives, Verified 06/25/22 07:11 chest tightness sitagliptin [From Januvia] Allergy "bad runny Verified 06/25/22 07:11 nose" ticagrelor [From Brilinta] Allergy Chest Verified 06/25/22 07:11 Pain/SOB atorvastatin AdvReac pain Verified 06/25/22 07:11 clopidogrel [From Plavix] AdvReac bleeding Verified 06/25/22 07:11 Physical Exam Vitals: Vital Signs Temp Pulse Pulse Resp BP Pulse Ox 06/27/22 11:20 60 06/27/22 11:11 60 06/27/22 08:00 97.3 F L 60 15 138/54 90 L 06/27/22 07:33 56 L 06/27/22 07:22 54 L 06/27/22 02:00 97.6 F 55 L 19 141/71 94 L 06/26/22 21:20 72 06/26/22 21:09 68 06/26/22 20:00 97.2 F L 52 L 19 147/69 98 06/26/22 17:26 70 06/26/22 17:10 68 06/26/22 14:31 98.0 F 51 L 18 168/68 98 06/26/22 12:22 72 06/26/22 12:14 68 Intake and Output 06/26/22 06/27/22 06/27/22 22:59 06:59 14:59 Intake Total 480 Output Total 500 Balance -500 480 Intake: Oral 480 Output: Urine 500 Other: Voiding Method External Catheter Incontinent # Voids 200 # Bowel Movements 1 1 1 Results - Lab Results Most recent lab results Calcium 8.0 mg/dL (8.4-10.2) L 06/27/22 06:54 Magnesium 2.0 mg/dL (1.6-2.3) 06/27/22 06:54 06/26/22 06:04 06/27/22 06:54 Assessment and Plan Plan: Assessment: 1. Acute kidney injury secondary to ATN secondary to infection and further worsened with the use of MARIKA inhibitor and diuretics. Creatinine 2.17 on admission and is 3.34 today. Rule out urinary retention. No hydronephrosis noted on kidney ultrasound. UA shows 1+ protein without blood. Also received IV contrast on 06/25/2022. Monitor for contrast-induced acute kidney injury. 2. Pneumonia on antibiotics. Blood culture positive for gram-positive bacilli. 3. Chronic kidney disease stage IIIB/4 with baseline creatinine in the range of 1.5-2 secondary to nephrosclerosis and diabetic kidney disease. Last seen in the office in 2018. 4. Diabetes mellitus. 5. Hypertension with chronic kidney disease. Stable. Plan: Hep-Lock IV fluids due to pleural effusions. Check bladder scan to make sure no urinary retention. Continue to hold MARIKA inhibitor. Avoid nephrotoxins. Follow-up cultures. Continue to monitor renal function and urine output. Thank you for the consultation. I will continue to follow the patient with you during his hospital stay.
--- NOTE | 2022-06-27 15:06 | P.PN ---
Subjective Progress Note Date: 06/27/22 Principal diagnosis: CHF exacerbation, suspected left lower lobe pneumonia. 82-year-old male, seen in the emergency department, on June 25, for shortness of breath. The patient was brought into the emergency department by EMS. The patient apparently had a saturation in the mid 80s, on room air, on arrival, to the emergency department. She does not use oxygen at home. He apparently been having increasing shortness of breath for a few days prior to admission. She denied any chest pain or chest discomfort. He denied any fever or chills. There was no cough or phlegm production. The patient is not a particularly good historian, and did not know the name of his current doctors. The patient has a history of coronary disease, CVA, diabetes, hyperlipidemia, hypertension, myocardial infarction, and skin cancer. The patient has also undergone a bypass grafting. He did smoke cigarettes for many years. He quit many years back. It's hard to quantitate how much she smoked, may be one pack a day for 20 years. White count 6.39, hemoglobin 11.5, hematocrit 36.4, and platelet count 234,000. Venous blood gas showed a pCO2 45 and a pH is 7.35. Sodium 142, potassium 5.2, chlorides 106, CO2 26, anion gap 11, BUN 61, and creatinine 3. Testing for influenza, respiratory syncytial virus, and coronavirus, all negative. N-terminal proBNP was 3,110. Chest x-ray was consistent with either CHF, or possible left lower lobe pneumonia. CT angiogram was negative for pulmonary embolism, and showed bilateral lower lobe infiltrates, which could relate to pneumonia, effusions, or atelectasis. I'm evaluating this patient today on 06/27/2022 on a general medical floor. Patient is resting comfortably in bed on 4 L nasal cannula. He denies any significant respiratory distress, cough, fever, chest pain. He is receiving normal saline infusing at 75 mL per hour. No new chest x-ray repeated today. No new CBC today. BMP from today shows sodium 141, potassium 4.8, chloride 109, serum CO2 24, creatinine 3.34, BUN 75, glucose 70. Procalcitonin was only mildly elevated at 0.25. He continues to receive empiric antibiotic therapy in the form of Rocephin and doxycycline. He is also receiving DuoNeb inhalation. Vital signs are stable. Objective - Vital Signs Vital signs: Vital Signs Temp 97.3 F L 06/27/22 08:00 Pulse 60 06/27/22 11:20 Resp 15 06/27/22 08:00 BP 138/54 06/27/22 08:00 Pulse Ox 90 L 06/27/22 08:00 FiO2 Intake & Output 06/26/22 06/27/22 06/27/22 18:59 06:59 18:59 Intake Total 480 Output Total 500 0 Balance -20 0 Intake: Oral 480 Output: Urine 500 Post Void Residual 0 Other: Voiding Method External Catheter External Catheter Incontinent # Voids 200 # Bowel Movements 1 1 1 - Exam No acute distress, oriented 3. Currently on 4 L of oxygen. The patient is a very poor historian. No conversational dyspnea or use of accessory muscles. HEENT examination is grossly unremarkable. Neck supple. Full range of motion. No adenopathy thyromegaly or neck vein distention. Cardiovascular examination reveals regular rhythm rate. S1-S2 normal. No S3 or S4. No discernible murmur noted. Lungs reveal scattered bibasilar crackles. No wheezes. Breath sounds are equal bilaterally. Saturations are 98%. Abdomen soft bowel sounds are heard. No masses or tenderness. Extremities are intact. No cyanosis or clubbing. 1+ edema is noted. Skin is without rash or lesion. Neurologic examination is brief but nonfocal. - Labs CBC & Chem 7: 06/26/22 06:04 06/27/22 06:54 Labs: Abnormal Lab Results - Last 24 Hours (Table) 06/26/22 06/26/22 06/26/22 Range/Units 16:06 21:22 22:02 Chloride (98-107) mmol/L BUN (9-20) mg/dL Creatinine (0.66-1.25) mg/dL Glucose (74-99) mg/dL POC Glucose (mg/dL) 320 H 260 H 271 H (70-110) mg/dL Calcium (8.4-10.2) mg/dL Urine Protein (Negative) Urine Glucose (UA) (Negative) 06/27/22 06/27/22 06/27/22 Range/Units 01:05 06:26 06:49 Chloride (98-107) mmol/L BUN (9-20) mg/dL Creatinine (0.66-1.25) mg/dL Glucose (74-99) mg/dL POC Glucose (mg/dL) 63 L 67 L (70-110) mg/dL Calcium (8.4-10.2) mg/dL Urine Protein 1+ H (Negative) Urine Glucose (UA) Trace H (Negative) 06/27/22 Range/Units 06:54 Chloride 109 H (98-107) mmol/L BUN 75 H (9-20) mg/dL Creatinine 3.34 H (0.66-1.25) mg/dL Glucose 70 L (74-99) mg/dL POC Glucose (mg/dL) (70-110) mg/dL Calcium 8.0 L (8.4-10.2) mg/dL Urine Protein (Negative) Urine Glucose (UA) (Negative) Microbiology - Last 24 Hours (Table) 06/26/22 18:43 Blood Culture Gram Stain - Preliminary Blood 06/25/22 02:55 Blood Culture - Final Blood Assessment and Plan Assessment: Shortness of breath, which may relate to underlying CHF, and/or pneumonia. N- terminal proBNP was elevated. Pro-calcitonin level mildly elevated. The patient doesn't really have any other findings to suggest pneumonia such as fever, chills, cough, phlegm production, or elevated white blood count. History of coronary artery disease, status post bypass grafting. Prior history of myocardial infarction. History of CVA. History of diabetes mellitus. History of hypertension. History of hyperlipidemia. History of skin cancer. History of osteoarthritis. History of diverticular disease. Plan: Patient's labs and medications reviewed We'll continue doxycycline for empiric antibiotic therapy and discontinue ceftriaxone Continue supplemental oxygen to maintain oxygen saturation greater than 92%. We will continue to follow I have personally seen and examined the patient, performed the documentation and the assessment and plan as written. Number of minutes spent on the visit: 10 Time with Patient: Less than 30
[2022-06-27 15:59] LABS: Glucose,Whole Blood 272 mg/dL (70-110)
[2022-06-27] MEDS: ASPIRIN 325 MG TAB PO SCH (17:40)
--- NOTE | 2022-06-27 19:52 | P.PN ---
Subjective Progress Note Date: 06/27/22 Hospital course: Patient is a very pleasant 82-year-old male with a past medical history is CAD with CABG, multiple CVAs with right-sided deficits, hypertension, h yperlipidemia, insulin-dependent diabetes mellitus, stage III chronic kidney disease with baseline creatinine of 2.0, and dementia. He lives at home with and reports walking with a walker. Patient presented to the emergency department with the chief complaint of shortness of breath beginning approximately one week ago and progressively worsening. He arrived via EMS and per review of documentation, patient was initially found to be hypoxic with SpO2 of 84% requiring oxygen supplementation. Patient underwent full evaluation in the emergency department. Chest x-ray was completed and upon review it as showing interstitial edema and blunting of left costophrenic angle concerning for heart failure and pneumonia. EKG showing sinus bradycardia at 57 bpm. Labs completed and reviewed. CBC revealing normocytic anemia with hemoglobin of 12.3 which is at baseline, BMP consistent with stage IIIc daily with BUN of 55, creatinine 2.17, and GFR of 28 with baseline creatinine of 2.0. Coagulation profile revealing an elevated d-dimer of 1.65. CTA chest was completed. Upon review, CTA chest showing no evidence of pulmonary emboli revealing bilateral lower lobe pneumonia and atelectasis with pleural effusions, radiologist also reporting lung abnormalities with enlarged mediastinal lymph nodes which are reportedly new when compared to previous CT completed 06/14/19. Patient started on antibiotics Rocephin and doxycycline for treatment of community-acquired pneumonia and being admitted under our services with consultation to pulmonology. Physical exam: Patient seen and fully evaluated at bedside this morning. Patient resting in bed, but continues to show improvement. Patient alert to person, time, place, and situation this morning and continues to report breathing better.. Morning labs reviewed. Patient continues to have worsening renal function with BUN 75, creatinine 3.34, and GFR of 16. Nephrology is following and discussed with nephrology and recommending continued gentle hydration with 0.9% normal saline at 75mL per hour at this time. Patient denies having any new complaints at this time. Oxygenation needs have increased to 4 L with SpO2 of 90-94%. Vital signs reviewed and stable. General: patient appears acutely ill, appears normal range Derm: Skin warm and dry, normal coloration for ethnicity. Head: Atraumatic, normocephalic and symmetric. Eyes: EOMs intact, no lid lag, and anicteric sclera Mouth: no lip lesions, mucus membranedry Cardiovascular: regular rate and rhythm with normal S1S2, systolic murmur, positive posterior tibial pulses bilaterally, and cap refill < 2 seconds. Lungs: Respirations even, regular, and unlabored on 4 L O2 via nasal cannula . Lungs diffuse scattered rhonchi with diffuse expiratory wheezes bilaterally. No accessory muscle usage. Abdominal: soft, nontender to palpation, no guarding, no appreciable organomegaly Ext: Movement and sensation intact in all 4 extremities. Patient with significant right-sided weakness, he is able to move arm slightly 1 out of 5 strength and hand is contracted. Right lower extremity weakness 2 out of 5 strength. No gross muscle atrophy, no edema, no contractures. Bilateral lower extremities dry and scaly with venous discoloration. Neuro: Speech clear, face symmetrical. GCS 14. Patient with right-sided weakness. Psych: Alert and oriented to person and place. Appropriate and pleasant affect. Assessment and Plan of Care: Bilateral lower lobe pneumonia Sepsis secondary to above Acute respiratory failure with hypoxia secondary to above Enlarged mediastinal lymph nodes, newly noted on CT Generalized weakness, progressively worsened 1 week -Oxygenation to be administered and titrated as needed to maintain SPO2 equal to or greater than 92% -Telemetry monitoring. -Monitor Pulse-oximetry -Duonebs scheduled and as needed for SOB and/or wheezing -Incentive Spirometry -Steroids: Decadron -Antibiotics: Rocephin and doxycycline -Sputum culture -Covid PCR, influenza A and B PCR, and RSV negative -Pro-calcitonin slightly elevated at 0.25. Preliminary blood cultures positive for gram-negative positive cocci. -Pulmonology consulted regarding newly noted enlarged mediastinal lymph nodes, appreciate recommendations -PT/OT consulted for evaluation and possible placement secondary to progressively worsening generalized weakness Acute kidney injury on chronic kidney disease stage III -Baseline creatinine 2.0. Morning labs revealing worsening renal function with BUN 75, creatinine 3.34, and GFR of 16. -Hold nephrotoxic medications including lisinopril and Lasix and start patient on gentle IV fluid hydration with 0.9% normal saline at 75 mL per hour. -Documented urinary output over the past 24 hours 1400 mL -Urinalysis negative for infection. -Bladder management -Renal ultrasound negative for hydronephrosis and showing no evidence of obstructive uropathy. Ultrasound revealing increased echotexture to kidneys suggestive of medical renal disease -Nephrology following Hypertensive urgency, hypertension controlled at this time. History of CAD with CABG History of hypertension -Hypertensive urgency with blood pressure 213/75 and heart rate of 57. Hyperte nsive urgency has improved and has been controlled since resuming home medication regimen. However now secondary to acute kidney injury on chronic kidney disease with an upper all and Lasix held and patient's hydralazine to be increased to 100 mg by mouth 3 times daily in attempts to optimize blood pressures. -Monitor vital signs closely. Lisinopril and Lasix discontinued at this time secondary to acute kidney injury, patient to continue with Procardia, metoprolol, and hydralazine to be increased to 100 mg 3 times daily in attempts to optimize blood pressures. -Continue heart healthy diet. History of hyperlipidemia -Home medications reviewed and reordered, patient to continue fenofibrate History of CVAs with right-sided deficits -Continue antiplatelet therapy with aspirin 325 mg daily. -Heparin for DVT prophylaxis. -Provide safe and supportive care with assistance as needed. -PT/OT consulted secondary to worsening generalized weakness over the past week. -Fall precautions CODE STATUS: Full code DVT prophylaxis: heparin Discussed with: patient and RN as well as cattle sticker. Anticipated discharge date: clinical course to determine Anticipated discharge place: home A total of 35 minutes was spent on the care of this complex patient more than 50% of the time was spent in counseling and care coordination. Objective - Vital Signs Vital signs: Vital Signs Temp 97.6 F 06/27/22 02:00 Pulse 56 L 06/27/22 07:33 Resp 19 06/27/22 02:00 BP 141/71 06/27/22 02:00 Pulse Ox 94 L 06/27/22 02:00 FiO2 Intake & Output 06/26/22 06/27/22 06/27/22 18:59 06:59 18:59 Intake Total 480 Output Total 500 Balance -20 Intake: Oral 480 Output: Urine 500 Other: Voiding Method External Catheter External Catheter # Voids 200 # Bowel Movements 1 1 1 - Labs CBC & Chem 7: 06/26/22 06:04 06/27/22 06:54 Labs: Abnormal Lab Results - Last 24 Hours (Table) 06/26/22 06/26/22 06/26/22 Range/Units 06:04 06:04 06:04 RBC 3.85 L (4.40-5.60) X 10*6/uL Hgb 11.5 L (13.0-17.0) g/dL Hct 36.4 L (39.6-50.0) % MCHC 31.6 L (32.0-37.0) g/dL RDW 15.2 H (11.5-14.5) % Immature Gran # 0.07 H (0.00-0.04) X 10*3/uL Eosinophils # 0 L (0.04-0.35) X 10*3/uL Chloride (98-107) mmol/L BUN 61.0 H (9.0-27.0) mg/dL Creatinine 3.0 H (0.6-1.5) mg/dL Est GFR (CKD-EPI)AfAm 21.6 L (60.0-200.0) Est GFR (CKD-EPI)NonAf 18.6 L (60.0-200.0) BUN/Creatinine Ratio 20.33 H (12.00-20.00) Ratio Glucose 202 H (70-110) mg/dL POC Glucose (mg/dL) (70-110) mg/dL Calcium 8.6 L (8.7-10.3) mg/dL Total Bilirubin <0.15 L (0.30-1.20) mg/dL ALT 9 L (10-49) U/L Total Protein 6.1 L (6.2-8.2) g/dL Albumin 3.2 L (3.8-4.9) g/dL Albumin/Globulin Ratio 1.10 L (1.60-3.17) g/dL Procalcitonin 0.25 H (0.02-0.09) ng/mL Urine Protein (Negative) Urine Glucose (UA) (Negative) 06/26/22 06/26/22 06/26/22 Range/Units 11:20 16:06 21:22 RBC (4.40-5.60) X 10*6/uL Hgb (13.0-17.0) g/dL Hct (39.6-50.0) % MCHC (32.0-37.0) g/dL RDW (11.5-14.5) % Immature Gran # (0.00-0.04) X 10*3/uL Eosinophils # (0.04-0.35) X 10*3/uL Chloride (98-107) mmol/L BUN (9.0-27.0) mg/dL Creatinine (0.6-1.5) mg/dL Est GFR (CKD-EPI)AfAm (60.0-200.0) Est GFR (CKD-EPI)NonAf (60.0-200.0) BUN/Creatinine Ratio (12.00-20.00) Ratio Glucose (70-110) mg/dL POC Glucose (mg/dL) 277 H 320 H 260 H (70-110) mg/dL Calcium (8.7-10.3) mg/dL Total Bilirubin (0.30-1.20) mg/dL ALT (10-49) U/L Total Protein (6.2-8.2) g/dL Albumin (3.8-4.9) g/dL Albumin/Globulin Ratio (1.60-3.17) g/dL Procalcitonin (0.02-0.09) ng/mL Urine Protein (Negative) Urine Glucose (UA) (Negative) 06/26/22 06/27/22 06/27/22 Range/Units 22:02 01:05 06:26 RBC (4.40-5.60) X 10*6/uL Hgb (13.0-17.0) g/dL Hct (39.6-50.0) % MCHC (32.0-37.0) g/dL RDW (11.5-14.5) % Immature Gran # (0.00-0.04) X 10*3/uL Eosinophils # (0.04-0.35) X 10*3/uL Chloride (98-107) mmol/L BUN (9.0-27.0) mg/dL Creatinine (0.6-1.5) mg/dL Est GFR (CKD-EPI)AfAm (60.0-200.0) Est GFR (CKD-EPI)NonAf (60.0-200.0) BUN/Creatinine Ratio (12.00-20.00) Ratio Glucose (70-110) mg/dL POC Glucose (mg/dL) 271 H 63 L (70-110) mg/dL Calcium (8.7-10.3) mg/dL Total Bilirubin (0.30-1.20) mg/dL ALT (10-49) U/L Total Protein (6.2-8.2) g/dL Albumin (3.8-4.9) g/dL Albumin/Globulin Ratio (1.60-3.17) g/dL Procalcitonin (0.02-0.09) ng/mL Urine Protein 1+ H (Negative) Urine Glucose (UA) Trace H (Negative) 06/27/22 06/27/22 Range/Units 06:49 06:54 RBC (4.40-5.60) X 10*6/uL Hgb (13.0-17.0) g/dL Hct (39.6-50.0) % MCHC (32.0-37.0) g/dL RDW (11.5-14.5) % Immature Gran # (0.00-0.04) X 10*3/uL Eosinophils # (0.04-0.35) X 10*3/uL Chloride 109 H (98-107) mmol/L BUN 75 H (9.0-27.0) mg/dL Creatinine 3.34 H (0.6-1.5) mg/dL Est GFR (CKD-EPI)AfAm (60.0-200.0) Est GFR (CKD-EPI)NonAf (60.0-200.0) BUN/Creatinine Ratio (12.00-20.00) Ratio Glucose 70 L (70-110) mg/dL POC Glucose (mg/dL) 67 L (70-110) mg/dL Calcium 8.0 L (8.7-10.3) mg/dL Total Bilirubin (0.30-1.20) mg/dL ALT (10-49) U/L Total Protein (6.2-8.2) g/dL Albumin (3.8-4.9) g/dL Albumin/Globulin Ratio (1.60-3.17) g/dL Procalcitonin (0.02-0.09) ng/mL Urine Protein (Negative) Urine Glucose (UA) (Negative) Microbiology - Last 24 Hours (Table) 06/26/22 18:43 Blood Culture Gram Stain - Preliminary Blood 06/25/22 02:55 Blood Culture - Final Blood
[2022-06-27 20:07] LABS: Glucose,Whole Blood 57 mg/dL (70-110)
[2022-06-27] MEDS: INSULIN DETEMIR (LEVEMIR) 100 UNIT/ML SYR SQ SCH (20:13)
[2022-06-27 20:32] LABS: Glucose,Whole Blood 68 mg/dL (70-110)
[2022-06-27 20:51] LABS: Glucose,Whole Blood 77 mg/dL (70-110)
[2022-06-28 01:54] LABS: Glucose,Whole Blood 106 mg/dL (70-110)
[2022-06-28 06:26] LABS: Glucose,Whole Blood 101 mg/dL (70-110)
[2022-06-28] MEDS: INSULIN ASPART (NovoLOG) 100 UNIT/ML VIAL SQ SCH ×4 (06:31→20:55)
[2022-06-28 08:34] LABS: HCT 30.1 % (39.6-50.0); HGB 9.6 g/dL (13.0-17.0); MCH 29.8 pg (27.0-32.0); MCHC 31.9 g/dL (32.0-37.0); MCV 93.5 fL (80.0-97.0); Mean Platelet Volume 11.4 fL (9.5-12.2); NRBC Per 100 WBC 0 /100 WBCS (0.0-0.0); Platelet Count 197 X 10*3/uL (140-440); RBC 3.22 X 10*6/uL (4.40-5.60); RDW 15.6 % (11.5-14.5); WBC 6.93 X 10*3/uL (4.50-10.00)
[2022-06-28] MEDS: IPRATROPIUM-ALBUTEROL 3 ML NEB INHALATION SCH ×4 (08:39→19:54)
[2022-06-28 08:51] LABS: Magnesium 1.9 mg/dL (1.5-2.4)
[2022-06-28 08:54] LABS: African American GFR (CKD) 19.2 (60.0-200.0); Anion Gap 9.5 mmol/L (10.00-18.00); BUN/Creat Ratio 21.48 Ratio (12.00-20.00); Blood Urea Nitrogen 70.9 mg/dL (9.0-27.0); Calcium 8.3 mg/dL (8.7-10.3); Carbon Dioxide 24.5 mmol/L (20.0-27.5); Non-African American GFR(CKD) 16.6 (60.0-200.0)
[2022-06-28] MEDS: FAMOTIDINE 20 MG TAB PO SCH ×2 (10:25→17:30)
[2022-06-28] MEDS: METOPROLOL SUCCINATE (ER) 25 MG TAB.ER.24H PO SCH (10:25)
[2022-06-28] MEDS: NIFEdipine XL 90 MG TAB.ER.24 PO SCH (10:25)
[2022-06-28] MEDS: DOXYCYCLINE 100 MG CAP PO SCH ×2 (10:26→21:22)
[2022-06-28] MEDS: hydrALAZINE HCL 50 MG TAB PO SCH ×3 (10:26→21:27)
[2022-06-28] MEDS: METOPROLOL SUCCINATE (ER) 100 MG TAB.ER.24H PO SCH (10:26)
[2022-06-28] MEDS: FENOFIBRATE 160 MG TAB PO SCH (10:26)
[2022-06-28] MEDS: FERROUS SULFATE 325 MG TAB PO SCH (10:26)
[2022-06-28] MEDS: HEPARIN SODIUM,PORCINE/PF 5,000 UNIT/0.5 ML SYRINGE SQ SCH ×2 (10:27→21:22)
[2022-06-28 11:28] LABS: Glucose,Whole Blood 146 mg/dL (70-110)
--- NOTE | 2022-06-28 14:41 | P.PN ---
Subjective Patient is seen in follow-up for acute kidney injury on chronic kidney disease. Renal function stable. English catheter placed for urinary retention. Sitting up in chair. On room air. Denies chest pain or shortness of breath. Vital signs are stable. General: Awake. No acute distress. HEENT: Head exam is unremarkable. LUNGS: Breath sounds decreased. HEART: Rate and Rhythm are regular. ABDOMEN: Soft, no distention. EXTREMITITES: No edema. Objective - Vital Signs Vital signs: Vital Signs Temp 97.7 F 06/28/22 08:00 Pulse 64 06/28/22 12:06 Resp 17 06/28/22 08:00 BP 174/61 06/28/22 08:00 Pulse Ox 90 L 06/28/22 11:30 FiO2 21 06/28/22 08:39 Intake & Output 06/27/22 06/28/22 06/28/22 18:59 06:59 18:59 Output Total 650 450 Balance -650 -450 Output: Urine 650 450 Uretheral (English) 300 Post Void Residual 0 Other: Voiding Method Incontinent Indwelling Catheter Indwelling Catheter # Bowel Movements 1 - Labs CBC & Chem 7: 06/28/22 06:22 06/28/22 06:22 Labs: Abnormal Lab Results - Last 24 Hours (Table) 06/27/22 06/27/22 06/27/22 Range/Units 15:57 20:05 20:20 RBC (4.40-5.60) X 10*6/uL Hgb (13.0-17.0) g/dL Hct (39.6-50.0) % MCHC (32.0-37.0) g/dL RDW (11.5-14.5) % Anion Gap (10.00-18.00) mmol/L BUN (9.0-27.0) mg/dL Creatinine (0.6-1.5) mg/dL Est GFR (CKD-EPI)AfAm (60.0-200.0) Est GFR (CKD-EPI)NonAf (60.0-200.0) BUN/Creatinine Ratio (12.00-20.00) Ratio POC Glucose (mg/dL) 272 H 57 L 68 L (70-110) mg/dL Calcium (8.7-10.3) mg/dL 06/28/22 06/28/2222 Range/Units 06:22 06:22 11:27 RBC 3.22 L (4.40-5.60) X 10*6/uL Hgb 9.6 L (13.0-17.0) g/dL Hct 30.1 L (39.6-50.0) % MCHC 31.9 L (32.0-37.0) g/dL RDW 15.6 H (11.5-14.5) % Anion Gap 9.50 L (10.00-18.00) mmol/L BUN 70.9 H (9.0-27.0) mg/dL Creatinine 3.3 H (0.6-1.5) mg/dL Est GFR (CKD-EPI)AfAm 19.2 L (60.0-200.0) Est GFR (CKD-EPI)NonAf 16.6 L (60.0-200.0) BUN/Creatinine Ratio 21.48 H (12.00-20.00) Ratio POC Glucose (mg/dL) 146 H (70-110) mg/dL Calcium 8.3 L (8.7-10.3) mg/dL Microbiology - Last 24 Hours (Table) 06/26/22 18:43 Blood Culture Gram Stain - Final Blood Blood Culture - Final Diphtheroid species 06/27/22 06:54 Blood Culture - Preliminary Blood No Growth after 24 hours Assessment and Plan Plan: Assessment: 1. Acute kidney injury secondary to ATN secondary to infection contrast-induced acute kidney injury, and further worsened with the use of MARIKA inhibitor and diuretics. Also component of urinary retention. Creatinine 2.17 on admission and peaked at 3.3 for this admission - 3.3 today. No hydronephrosis noted on kidney ultrasound. UA shows 1+ protein without blood. Received IV contrast on 06/25/2022. 2. ?Pneumonia s/p antibiotics. Blood culture positive for diphtheroid. 3. Chronic kidney disease stage IIIB/4 with baseline creatinine in the range of 1.5-2 secondary to nephrosclerosis and diabetic kidney disease. Last seen in the office in 2018. 4. Diabetes mellitus. 5. Hypertension with chronic kidney disease. 6. Urinary retention. Has English catheter. Plan: Off IV fluids Add Flomax. Add PRN hydralazine. Continue to hold MARIKA inhibitor. Avoid nephrotoxins. Follow-up cultures. Continue to monitor renal function and urine output.
--- NOTE | 2022-06-28 15:14 | P.PN ---
Subjective Progress Note Date: 06/28/22 82-year-old male, seen in the emergency department, on June 25, for shortness of breath. The patient was brought into the emergency department by EMS. The patient apparently had a saturation in the mid 80s, on room air, on arrival, to the emergency department. She does not use oxygen at home. He a pparently been having increasing shortness of breath for a few days prior to admission. She denied any chest pain or chest discomfort. He denied any fever or chills. There was no cough or phlegm production. The patient is not a particularly good historian, and did not know the name of his current doctors. The patient has a history of coronary disease, CVA, diabetes, hyperlipidemia, hypertension, myocardial infarction, and skin cancer. The patient has also undergone a bypass grafting. He did smoke cigarettes for many years. He quit many years back. It's hard to quantitate how much she smoked, may be one pack a day for 20 years. White count 6.39, hemoglobin 11.5, hematocrit 36.4, and platelet count 234,000. Venous blood gas showed a pCO2 45 and a pH is 7.35. Sodium 142, potassium 5.2, chlorides 106, CO2 26, anion gap 11, BUN 61, and creatinine 3. Testing for influenza, respiratory syncytial virus, and coronavirus, all negative. N-terminal proBNP was 3,110. Chest x-ray was consistent with either CHF, or possible left lower lobe pneumonia. CT angiogram was negative for pulmonary embolism, and showed bilateral lower lobe infiltrates, which could relate to pneumonia, effusions, or atelectasis. I'm evaluating this patient today on 06/27/2022 on a general medical floor. Patient is resting comfortably in bed on 4 L nasal cannula. He denies any significant respiratory distress, cough, fever, chest pain. He is receiving normal saline infusing at 75 mL per hour. No new chest x-ray repeated today. No new CBC today. BMP from today shows sodium 141, potassium 4.8, chloride 109, serum CO2 24, creatinine 3.34, BUN 75, glucose 70. Procalcitonin was only mildly elevated at 0.25. He continues to receive empiric antibiotic therapy in the form of Rocephin and doxycycline. He is also receiving DuoNeb inhalation. Vital signs are stable. The patient is seen today 06/28/2022 in follow-up on the regular medical floor. He is currently sitting up in a chair at the bedside. Awake and alert in no acute distress. He is maintaining O2 saturations in the 90s on 2 L/m per nasal cannula. Follow-up blood cultures revealed no growth. White count 6.9. Hemoglobin 9.6. Platelets 197. Sodium 142. Potassium 5.0. BUN 71. Creatinine 3.3. He remains on DuoNeb inhalations. Heparin for DVT prophylaxis. Antibiotics in the form of doxycycline. Objective - Vital Signs Vital signs: Vital Signs Temp 97.7 F 06/28/22 08:00 Pulse 64 06/28/22 12:06 Resp 17 06/28/22 08:00 BP 174/61 06/28/22 08:00 Pulse Ox 90 L 06/28/22 11:30 FiO2 21 06/28/22 08:39 Intake & Output 06/27/22 06/28/22 06/28/22 18:59 06:59 18:59 Output Total 650 450 Balance -650 -450 Output: Urine 650 450 Uretheral (Engilsh) 300 Post Void Residual 0 Other: Voiding Method Incontinent Indwelling Catheter Indwelling Catheter # Bowel Movements 1 - Exam Alert 82-year-old male patient, up in a chair at the bedside, No acute distress. Currently on 2 L of oxygen. The patient is a very poor historian. No co nversational dyspnea or use of accessory muscles. HEENT examination is grossly unremarkable. Neck supple. Full range of motion. No adenopathy thyromegaly or neck vein distention. Cardiovascular examination reveals regular rhythm rate. S1-S2 normal. No S3 or S4. No discernible murmur noted. Lungs reveal scattered bibasilar crackles. No wheezes. Breath sounds are equal bilaterally. . Abdomen soft bowel sounds are heard. No masses or tenderness. Extremities are intact. No cyanosis or clubbing. 1+ edema is noted. Skin is without rash or lesion. Neurologic examination is brief but nonfocal. - Labs CBC & Chem 7: 06/28/22 06:22 06/28/22 06:22 Labs: Abnormal Lab Results - Last 24 Hours (Table) 06/27/22 06/27/22 06/27/22 Range/Units 15:57 20:05 20:20 RBC (4.40-5.60) X 10*6/uL Hgb (13.0-17.0) g/dL Hct (39.6-50.0) % MCHC (32.0-37.0) g/dL RDW (11.5-14.5) % Anion Gap (10.00-18.00) mmol/L BUN (9.0-27.0) mg/dL Creatinine (0.6-1.5) mg/dL Est GFR (CKD-EPI)AfAm (60.0-200.0) Est GFR (CKD-EPI)NonAf (60.0-200.0) BUN/Creatinine Ratio (12.00-20.00) Ratio POC Glucose (mg/dL) 272 H 57 L 68 L (70-110) mg/dL Calcium (8.7-10.3) mg/dL 06/28/22 06/28/22 06/28/22 Range/Units 06:22 06:22 11:27 RBC 3.22 L (4.40-5.60) X 10*6/uL Hgb 9.6 L (13.0-17.0) g/dL Hct 30.1 L (39.6-50.0) % MCHC 31.9 L (32.0-37.0) g/dL RDW 15.6 H (11.5-14.5) % Anion Gap 9.50 L (10.00-18.00) mmol/L BUN 70.9 H (9.0-27.0) mg/dL Creatinine 3.3 H (0.6-1.5) mg/dL Est GFR (CKD-EPI)AfAm 19.2 L (60.0-200.0) Est GFR (CKD-EPI)NonAf 16.6 L (60.0-200.0) BUN/Creatinine Ratio 21.48 H (12.00-20.00) Ratio POC Glucose (mg/dL) 146 H (70-110) mg/dL Calcium 8.3 L (8.7-10.3) mg/dL Microbiology - Last 24 Hours (Table) 06/26/22 18:43 Blood Culture Gram Stain - Final Blood Blood Culture - Final Diphtheroid species 06/27/22 06:54 Blood Culture - Preliminary Blood No Growth after 24 hours Assessment and Plan Assessment: Shortness of breath, which may relate to underlying CHF, and/or pneumonia. N- terminal proBNP was elevated. Pro-calcitonin level mildly elevated. The patient doesn't really have any other findings to suggest pneumonia such as fever, chills, cough, phlegm production, or elevated white blood count. Pro- calcitonin 0.25. On empiric antibiotics in the form of doxycycline. History of coronary artery disease, status post bypass grafting. Prior history of myocardial infarction. History of CVA. History of diabetes mellitus. History of hypertension. History of hyperlipidemia. History of skin cancer. History of osteoarthritis. History of diverticular disease. Plan: The patient was seen and evaluated Medications and labs reviewed Stable from the pulmonary standpoint The plan is for discharge to [facility] We will see as needed I have personally seen and examined the patient, performed the documentation and the assessment and plan as written. Number of minutes spent on the visit: 10.
--- NOTE | 2022-06-28 16:53 | P.PN ---
Subjective Progress Note Date: 06/28/22 Hospital course: Patient is a very pleasant 82-year-old male with a past medical history is CAD with CABG, multiple CVAs with right-sided deficits, hypertension, h yperlipidemia, insulin-dependent diabetes mellitus, stage III chronic kidney disease with baseline creatinine of 2.0, and dementia. He lives at home with and reports walking with a walker. Patient presented to the emergency department with the chief complaint of shortness of breath beginning approximately one week ago and progressively worsening. He arrived via EMS and per review of documentation, patient was initially found to be hypoxic with SpO2 of 84% requiring oxygen supplementation. Patient underwent full evaluation in the emergency department. Chest x-ray was completed and upon review it as showing interstitial edema and blunting of left costophrenic angle concerning for heart failure and pneumonia. EKG showing sinus bradycardia at 57 bpm. Labs completed and reviewed. CBC revealing normocytic anemia with hemoglobin of 12.3 which is at baseline, BMP consistent with stage IIIc daily with BUN of 55, creatinine 2.17, and GFR of 28 with baseline creatinine of 2.0. Coagulation profile revealing an elevated d-dimer of 1.65. CTA chest was completed. Upon review, CTA chest showing no evidence of pulmonary emboli revealing bilateral lower lobe pneumonia and atelectasis with pleural effusions, radiologist also reporting lung abnormalities with enlarged mediastinal lymph nodes which are reportedly new when compared to previous CT completed 06/14/19. Patient started on antibiotics Rocephin and doxycycline for treatment of community-acquired pneumonia and being admitted under our services with consultation to pulmonology. Status post receiving contrast from CTA patient developed an acute kidney injury on stage III chronic kidney disease. Patient was started on IV fluid hydration and all nephrotoxic medications were discontinued at this time. Nephrology consulted. Physical exam: Patient seen and fully evaluated at bedside this morning. Patient resting in bed, he is slightly more confused today than he was yesterday but remains alert to person and place. Morning labs reviewed and somewhat stable. Renal function appears to have plateaued with BUN of 70.9, creatinine 3.3, and GFR of 16.6. IV fluids discontinued at this time. Hemoglobin slightly worse than at 9.6 with baseline hemoglobin of 11, this is believed to be secondary to worsening renal function. Oxygen is being and titrated down and this morning patient on 2 L with SpO2 of 92% at time of assessment. Patient denies having any pain or complaints at this time. Vital signs reviewed and stable. General: patient appears acutely ill, appears normal range Derm: Skin warm and dry, normal coloration for ethnicity. Head: Atraumatic, normocephalic and symmetric. Eyes: EOMs intact, no lid lag, and anicteric sclera Mouth: no lip lesions, mucus membranedry Cardiovascular: regular rate and rhythm with normal S1S2, systolic murmur, positive posterior tibial pulses bilaterally, and cap refill < 2 seconds. Lungs: Respirations even, regular, and unlabored on 2 L O2 via nasal cannula . Lungs diffuse scattered rhonchi with diffuse expiratory wheezes bilaterally. No accessory muscle usage. Abdominal: soft, nontender to palpation, no guarding, no appreciable organomegaly Ext: Movement and sensation intact in all 4 extremities. Patient with significant right-sided weakness, he is able to move arm slightly 1 out of 5 strength and hand is contracted. Right lower extremity weakness 2 out of 5 strength. No gross muscle atrophy, no edema, no contractures. Bilateral lower extremities dry and scaly with venous discoloration. Neuro: Speech clear, face symmetrical. GCS 14. Patient with right-sided weakness. Psych: Alert and oriented to person and place. Appropriate and pleasant affect. Assessment and Plan of Care: Bilateral lower lobe pneumonia Sepsis secondary to above Bacteremia, ruled out repeat cultures showing no growth, initial culture believed to be contaminant Acute respiratory failure with hypoxia secondary to above Enlarged mediastinal lymph nodes, newly noted on CT Generalized weakness, progressively worsened 1 week -Oxygenation to be administered and titrated as needed to maintain SPO2 equal to or greater than 92% -Telemetry monitoring. -Monitor Pulse-oximetry -Duonebs scheduled and as needed for SOB and/or wheezing -Incentive Spirometry -Steroids: Decadron -Antibiotics: Doxycycline -Sputum culture -Covid PCR, influenza A and B PCR, and RSV negative -Pro-calcitonin slightly elevated at 0.25. Preliminary blood cultures positive for gram-negative positive cocci with repeat culture showing no growth to date. Initial cultures likely from contaminant. -Pulmonology consulted regarding newly noted enlarged mediastinal lymph nodes, a ppreciate recommendations -PT/OT consulted for evaluation and possible placement secondary to progre ssively worsening generalized weakness Acute kidney injury on chronic kidney disease stage III, likely multifactorial resulting from current infectious process along with urinary retention and contrast induced acute kidney injury. Urinary retention -Baseline creatinine 2.0. Morning labs revealing worsening renal function with BUN 70.9, creatinine 3.3, and GFR 16.6. -Hold nephrotoxic medications including lisinopril and Lasix -Patient received IV fluid hydration after receiving IV contrast on 06/25/22 resulting in TAWANNA -Urinalysis negative for infection. -English catheter management -Renal ultrasound negative for hydronephrosis and showing no evidence of obstructive uropathy. Ultrasound revealing increased echotexture to kidneys suggestive of medical renal disease -Nephrology following Hypertensive urgency, hypertension controlled at this time. History of CAD with CABG History of hypertension -Hypertensive urgency with blood pressure 213/75 and heart rate of 57. Hypertensive urgency has improved and has been controlled since resuming home medication regimen. -Lisinopril and Lasix to continue to be held secondary to acute kidney injury. -Hydralazine was increased to 100 mg 3 times daily in attempts to optimize blood pressure and nephrology added on when necessary IV hydralazine. Acute on chronic anemia -Hemoglobin 9.6 with baseline hemoglobin around 11.5. Likely secondary to worsening renal function. -No evidence of bleeding. -No need for transfusion at this time. We will continue to monitor closely with repeat a.m. labs and transfuse as needed for hemoglobin less than 7. History of hyperlipidemia -Home medications reviewed and reordered, patient to continue fenofibrate History of CVAs with right-sided deficits -Continue antiplatelet therapy with aspirin 325 mg daily. -Heparin for DVT prophylaxis. -Provide safe and supportive care with assistance as needed. -PT/OT consulted secondary to worsening generalized weakness over the past week. -Fall precautions CODE STATUS: Full code DVT prophylaxis: heparin Discussed with: patient and RN, left voice mail for Anticipated discharge date: clinical course to determine Anticipated discharge place: home A total of 35 minutes was spent on the care of this complex patient more than 50% of the time was spent in counseling and care coordination. Objective - Vital Signs Vital signs: Vital Signs Temp 97.6 F 06/28/22 02:00 Pulse 70 06/28/22 02:00 Resp 20 06/28/22 02:00 BP 147/63 06/28/22 02:00 Pulse Ox 92 L 06/28/22 02:00 FiO2 Intake & Output 06/27/22 06/28/22 06/28/22 18:59 06:59 18:59 Output Total 650 450 Balance -650 -450 Output: Urine 650 450 Uretheral (English) 300 Post Void Residual 0 Other: Voiding Method Incontinent Indwelling Catheter # Bowel Movements 1 - Labs CBC & Chem 7: 06/28/22 06:22 06/28/22 06:22 Labs: Abnormal Lab Results - Last 24 Hours (Table) 06/27/22 06/27/22 06/27/22 Range/Units 15:57 20:05 20:20 RBC (4.40-5.60) X 10*6/uL Hgb (13.0-17.0) g/dL Hct (39.6-50.0) % MCHC (32.0-37.0) g/dL RDW (11.5-14.5) % POC Glucose (mg/dL) 272 H 57 L 68 L (70-110) mg/dL 06/28/22 Range/Units 06:22 RBC 3.22 L (4.40-5.60) X 10*6/uL Hgb 9.6 L (13.0-17.0) g/dL Hct 30.1 L (39.6-50.0) % MCHC 31.9 L (32.0-37.0) g/dL RDW 15.6 H (11.5-14.5) % POC Glucose (mg/dL) (70-110) mg/dL Microbiology - Last 24 Hours (Table) 06/26/22 18:43 Blood Culture Gram Stain - Preliminary Blood
[2022-06-28 17:05] LABS: Glucose,Whole Blood 204 mg/dL (70-110)
[2022-06-28] MEDS: TAMSULOSIN 0.4 MG CAP.ER.24H PO SCH (17:30)
[2022-06-28] MEDS: ASPIRIN 325 MG TAB PO SCH (17:31)
[2022-06-28 19:47] LABS: Glucose,Whole Blood 75 mg/dL (70-110)
[2022-06-28] MEDS: INSULIN DETEMIR (LEVEMIR) 100 UNIT/ML SYR SQ SCH (20:55)
[2022-06-28] MEDS: hydrALAZINE HCL 20 MG/ML 1 ML VIAL IVP PRN (21:22)
[2022-06-29] MEDS: INSULIN ASPART (NovoLOG) 100 UNIT/ML VIAL SQ SCH ×4 (06:15→20:47)
[2022-06-29 06:18] LABS: Glucose,Whole Blood 77 mg/dL (70-110)
[2022-06-29] MEDS: FAMOTIDINE 20 MG TAB PO SCH ×2 (06:28→17:13)
[2022-06-29] MEDS: METOPROLOL SUCCINATE (ER) 25 MG TAB.ER.24H PO SCH (08:23)
[2022-06-29] MEDS: NIFEdipine XL 90 MG TAB.ER.24 PO SCH (08:23)
[2022-06-29] MEDS: METOPROLOL SUCCINATE (ER) 100 MG TAB.ER.24H PO SCH (08:23)
[2022-06-29] MEDS: FENOFIBRATE 160 MG TAB PO SCH (08:23)
[2022-06-29] MEDS: HEPARIN SODIUM,PORCINE/PF 5,000 UNIT/0.5 ML SYRINGE SQ SCH ×2 (08:23→20:47)
[2022-06-29] MEDS: hydrALAZINE HCL 50 MG TAB PO SCH ×3 (08:23→20:47)
[2022-06-29] MEDS: IPRATROPIUM-ALBUTEROL 3 ML NEB INHALATION SCH ×4 (08:46→19:04)
[2022-06-29 10:25] LABS: African American GFR (CKD) 21.6 (60.0-200.0); Anion Gap 7.5 mmol/L (10.00-18.00); BUN/Creat Ratio 23.67 Ratio (12.00-20.00); Calcium 8.6 mg/dL (8.7-10.3); Carbon Dioxide 25.5 mmol/L (20.0-27.5); Magnesium 2.3 mg/dL (1.5-2.4); Non-African American GFR(CKD) 18.6 (60.0-200.0); Potassium 4.9 mmol/L (3.5-5.5)
[2022-06-29 11:10] LABS: Glucose,Whole Blood 137 mg/dL (70-110)
--- NOTE | 2022-06-29 12:05 | P.GSCN ---
History of Present Illness Consult date: 06/29/22 Reason for Consult: Urinary retention History of present illness: This is a 82-year-old male admitted to the hospital with CHF exacerbation. Brian crawford is consulted for urinary retention. Patient post void residuals was elevated at 300 mL, subsequently English catheter was placed yesterday. Denies any voiding dysfunction at baseline. No previous known history of urinary retention. Denies any family history of prostate cancer. Current catheter is in place draining clear yellow urine. Underwent renal bladder ultrasound on June 26 which showed no evidence of hydronephrosis Review of Systems - Constitutional Denies fever, Denies weight loss - EENT Ears, nose, mouth and throat: Denies dysphagia - Cardiovascular Denies chest pain, Denies shortness of breath - Respiratory Denies cough, Denies 7 - Gastrointestinal Reports as per HPI - Genitourinary Denies dysuria, Denies hematuria Past Medical History Past Medical History: Coronary Artery Disease (CAD), Cancer, CVA/TIA, Diabetes Mellitus, Hyperlipidemia, Hypertension, Myocardial Infarction (NC), Osteoarthritis (OA) Additional Past Medical History / Comment(s): 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, 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, NC x 2, varicose veins, diverticulitis, hx skin cancer Last Myocardial Infarction Date:: 2004 approx History of Any Multi-Drug Resistant Organisms: None Reported Past Surgical History: Coronary Bypass/CABG, Heart Catheterization, Hernia Repair Additional Past Surgical History / Comment(s): stents in left carotid artery, CABG approx 2004, skin cancer removed from back, colonoscopy, hernia surgery Past Anesthesia/Blood Transfusion Reactions: No Reported Reaction Past Psychological History: No Psychological Hx Reported Smoking Status: Former smoker Past Alcohol Use History: Rare Additional Past Alcohol Use History / Comment(s): quit smoking > 20 yrs ago, smoked for 15-20 yrs, 1 ppd Past Drug Use History: None Reported - Past Family History Brother(s) Family Medical History: Cancer Medications and Allergies Home Medications Medication Instructions Recorded Confirmed Type Fenofibrate 160 mg PO DAILY 08/26/16 06/25/22 History Metoprolol Succinate [Toprol XL] 100 mg PO DAILY 08/26/16 06/25/22 History Ubidecarenone [Co Q-10] 200 mg PO W/SUPPER 08/26/16 06/25/22 History Cholecalciferol [Vitamin D3 (25 25 mcg PO W/SUPPER 07/26/19 06/25/22 History Mcg = 1000 Iu)] Insulin Glargine,Hum.rec.anlog 12 units SQ HS 07/26/19 06/25/22 History [Lantus Solostar Pen] NIFEdipine [NIFEdipine ER] 90 mg PO DAILY 07/26/19 06/25/22 History Metoprolol Succinate (ER) [Toprol 25 mg PO DAILY tab.er.24h 07/28/19 06/25/22 Rx XL] Aspirin EC [Ecotrin] 325 mg PO W/SUPPER 03/14/21 06/25/22 History Cetirizine HCl [Zyrtec] 10 mg PO DAILY 03/14/21 06/25/22 History Famotidine [Pepcid] 10 mg PO BID-W/MEALS 03/14/21 06/25/22 History hydrALAZINE HCL [Apresoline] 100 mg PO BID-W/MEALS 03/14/21 06/25/22 History levETIRAcetam [Keppra] 750 mg PO BID-W/MEALS 03/14/21 06/25/22 History ramipriL 2.5 mg PO DAILY 03/14/21 06/25/22 History Ferrous Sulfate [Feosol] 325 mg PO MOWEFR 06/25/22 06/25/22 History Furosemide [Lasix] 20 mg PO DAILY 06/25/22 06/25/22 History Allergies Allergy/AdvReac Type Severity Reaction Status Date / Time erythromycin base Allergy Dyspnea Verified 06/25/22 07:11 iodine Allergy Dyspnea Verified 06/25/22 07:11 minoxidil Allergy Unknown Verified 06/25/22 07:11 Penicillins Allergy Rash/Hives, Verified 06/25/22 07:11 chest tightness sitagliptin [From Januvia] Allergy "bad runny Verified 06/25/22 07:11 nose" ticagrelor [From Brilinta] Allergy Chest Verified 06/25/22 07:11 Pain/SOB atorvastatin AdvReac pain Verified 06/25/22 07:11 clopidogrel [From Plavix] AdvReac bleeding Verified 06/25/22 07:11 Surgical - Exam Vital Signs Temp Pulse Resp BP Pulse Ox 97.4 F L 58 L 18 164/60 84 L 06/25/22 02:56 06/25/22 02:56 06/25/22 02:56 06/25/22 02:56 06/25/22 02:56 - General no distress, no pain - Eyes normal ocular movement, no pale - ENT normal nares, normal mucosa - Respiratory normal expansion, normal respiratory effort - Abdomen Abdomen: soft, non tender - Genitourinary English in place draining clear yellow urine Results - Labs 06/28/22 06:22 06/29/22 05:54 Abnormal Lab Results - Last 24 Hours (Table) 06/28/22 06/29/22 06/29/22 Range/Units 17:04 05:54 11:08 Chloride 111 H (96-109) mmol/L Anion Gap 7.50 L (10.00-18.00) mmol/L BUN 71.0 H (9.0-27.0) mg/dL Creatinine 3.0 H (0.6-1.5) mg/dL Est GFR (CKD-EPI)AfAm 21.6 L (60.0-200.0) Est GFR (CKD-EPI)NonAf 18.6 L (60.0-200.0) BUN/Creatinine Ratio 23.67 H (12.00-20.00) Ratio POC Glucose (mg/dL) 204 H 137 H (70-110) mg/dL Calcium 8.6 L (8.7-10.3) mg/dL Microbiology - Last 24 Hours (Table) 06/27/22 06:54 Blood Culture - Preliminary Blood No Growth after 48 hours 06/26/22 18:43 Blood Culture Gram Stain - Final Blood Blood Culture - Final Diphtheroid species Diabetes panel 06/29/22 Range/Units 05:54 Sodium 144 (135-145) mmol/L Potassium 4.9 (3.5-5.5) mmol/L Chloride 111 H (96-109) mmol/L Carbon Dioxide 25.5 (20.0-27.5) mmol/L BUN 71.0 H (9.0-27.0) mg/dL Creatinine 3.0 H (0.6-1.5) mg/dL Glucose 81 (70-110) mg/dL Calcium 8.6 L (8.7-10.3) mg/dL Calcium panel 06/29/22 Range/Units 05:54 Calcium 8.6 L (8.7-10.3) mg/dL Pituitary panel 06/29/22 Range/Units 05:54 Sodium 144 (135-145) mmol/L Potassium 4.9 (3.5-5.5) mmol/L Chloride 111 H (96-109) mmol/L Carbon Dioxide 25.5 (20.0-27.5) mmol/L BUN 71.0 H (9.0-27.0) mg/dL Creatinine 3.0 H (0.6-1.5) mg/dL Glucose 81 (70-110) mg/dL Calcium 8.6 L (8.7-10.3) mg/dL Adrenal panel 06/29/22 Range/Units 05:54 Sodium 144 (135-145) mmol/L Potassium 4.9 (3.5-5.5) mmol/L Chloride 111 H (96-109) mmol/L Carbon Dioxide 25.5 (20.0-27.5) mmol/L BUN 71.0 H (9.0-27.0) mg/dL Creatinine 3.0 H (0.6-1.5) mg/dL Glucose 81 (70-110) mg/dL Calcium 8.6 L (8.7-10.3) mg/dL Assessment and Plan Assessment: 82-year-old male with urinary retention and PVR greater than 300 mL. No voiding dysfunction or previous history of retention -English catheter can be removed prior to discharge, no need to reinsert the catheter if postvoid residuals less than 300 mL -Continue Flomax
--- NOTE | 2022-06-29 12:35 | P.PN ---
Subjective Patient is seen in follow-up for acute kidney injury on chronic kidney disease. Renal function a little better. Has English catheter for urinary retention. Urine output improved. Nonoliguric. Resting in bed. Sitting up in chair. On room air. Denies chest pain or shortness of breath. Vital signs are stable. General: Awake. No acute distress. HEENT: Head exam is unremarkable. LUNGS: Breath sounds decreased. HEART: Rate and Rhythm are regular. ABDOMEN: Soft, no distention. EXTREMITITES: No edema. Objective - Vital Signs Vital signs: Vital Signs Temp 97.0 F L 06/29/22 02:00 Pulse 64 06/29/22 08:59 Resp 20 06/29/22 08:00 BP 180/70 06/29/22 08:00 Pulse Ox 92 L 06/29/22 08:00 FiO2 21 06/28/22 08:39 Intake & Output 06/28/22 06/29/22 06/29/22 18:59 06:59 18:59 Output Total 1900 1000 Balance -1900 -1000 Output: Urine 1900 1000 Other: Voiding Method Indwelling Catheter Indwelling Catheter - Labs CBC & Chem 7: 06/28/22 06:22 06/29/22 05:54 Labs: Abnormal Lab Results - Last 24 Hours (Table) 06/28/22 06/29/22 06/29/22 Range/Units 17:04 05:54 11:08 Chloride 111 H (96-109) mmol/L Anion Gap 7.50 L (10.00-18.00) mmol/L BUN 71.0 H (9.0-27.0) mg/dL Creatinine 3.0 H (0.6-1.5) mg/dL Est GFR (CKD-EPI)AfAm 21.6 L (60.0-200.0) Est GFR (CKD-EPI)NonAf 18.6 L (60.0-200.0) BUN/Creatinine Ratio 23.67 H (12.00-20.00) Ratio POC Glucose (mg/dL) 204 H 137 H (70-110) mg/dL Calcium 8.6 L (8.7-10.3) mg/dL Microbiology - Last 24 Hours (Table) 06/27/22 06:54 Blood Culture - Preliminary Blood No Growth after 48 hours 06/26/22 18:43 Blood Culture Gram Stain - Final Blood Blood Culture - Final Diphtheroid species Assessment and Plan Plan: Assessment: 1. Acute kidney injury secondary to ATN secondary to infection contrast-induced acute kidney injury, and further worsened with the use of MARIKA inhibitor and diuretics. Also component of urinary retention. Creatinine 2.17 on admission and peaked at 3.3 for this admission - 3.0 today. No hydronephrosis noted on kidney ultrasound. UA shows 1+ protein without blood. Received IV contrast on 06/25/2022. 2. ?Pneumonia s/p antibiotics. Blood culture positive for diphtheroid. 3. Chronic kidney disease stage IIIB/4 with baseline creatinine in the range of 1.5-2 secondary to nephrosclerosis and diabetic kidney disease. Last seen in the office in 2018. 4. Diabetes mellitus. 5. Hypertension with chronic kidney disease. 6. Urinary retention. Has English catheter. On Flomax. Plan: Increase nifedipine to 60 mg twice daily. Continue to hold MARIKA inhibitor. Avoid nephrotoxins. Follow-up cultures. Continue to monitor renal function and urine output.
[2022-06-29 16:58] LABS: Glucose,Whole Blood 244 mg/dL (70-110)
[2022-06-29] MEDS: ASPIRIN 325 MG TAB PO SCH (17:13)
[2022-06-29] MEDS: TAMSULOSIN 0.4 MG CAP.ER.24H PO SCH (17:13)
--- NOTE | 2022-06-29 18:41 | P.PN ---
Subjective Progress Note Date: 06/29/22 Hospital course: Patient is a very pleasant 82-year-old male with a past medical history is CAD with CABG, multiple CVAs with right-sided deficits, hypertension, h yperlipidemia, insulin-dependent diabetes mellitus, stage III chronic kidney disease with baseline creatinine of 2.0, and dementia. He lives at home with and reports walking with a walker. Patient presented to the emergency department with the chief complaint of shortness of breath beginning approximately one week ago and progressively worsening. He arrived via EMS and per review of documentation, patient was initially found to be hypoxic with SpO2 of 84% requiring oxygen supplementation. Patient underwent full evaluation in the emergency department. Chest x-ray was completed and upon review it as showing interstitial edema and blunting of left costophrenic angle concerning for heart failure and pneumonia. EKG showing sinus bradycardia at 57 bpm. Labs completed and reviewed. CBC revealing normocytic anemia with hemoglobin of 12.3 which is at baseline, BMP consistent with stage IIIc daily with BUN of 55, creatinine 2.17, and GFR of 28 with baseline creatinine of 2.0. Coagulation profile revealing an elevated d-dimer of 1.65. CTA chest was completed. Upon review, CTA chest showing no evidence of pulmonary emboli revealing bilateral lower lobe pneumonia and atelectasis with pleural effusions, radiologist also reporting lung abnormalities with enlarged mediastinal lymph nodes which are reportedly new when compared to previous CT completed 06/14/19. Patient started on antibiotics Rocephin and doxycycline for treatment of community-acquired pneumonia and being admitted under our services with consultation to pulmonology. Status post receiving contrast from CTA patient developed an acute kidney injury on stage III chronic kidney disease. Patient was started on IV fluid hydration and all nephrotoxic medications were discontinued at this time. Nephrology consulted. Physical exam: Patient seen and fully evaluated at bedside this morning. Patient was sitting in the chair at bedside this morning. Patient was alert to person and place and stated it was 2022. He currently denies having any pain or complaints at this time. Morning labs reviewed and stable. Renal function showing slight improvement with BUN of 71, creatinine 3.0, and GFR of 18.6. English catheter remains in place. Patient had a documented output of 2900 mL over the past 24 hours. Vital signs reviewed and stable. General: patient appears acutely ill, appears normal range Derm: Skin warm and dry, normal coloration for ethnicity. Head: Atraumatic, normocephalic and symmetric. Eyes: EOMs intact, no lid lag, and anicteric sclera Mouth: no lip lesions, mucus membranedry Cardiovascular: regular rate and rhythm with normal S1S2, systolic murmur, positive posterior tibial pulses bilaterally, and cap refill < 2 seconds. Lungs: Respirations even, regular, and unlabored on 2 L O2 via nasal cannula . Lungs diffuse scattered rhonchi with diffuse expiratory wheezes bilaterally. No accessory muscle usage. Abdominal: soft, nontender to palpation, no guarding, no appreciable organomegaly Ext: Movement and sensation intact in all 4 extremities. Patient with significant right-sided weakness, he is able to move arm slightly 1 out of 5 strength and hand is contracted. Right lower extremity weakness 2 out of 5 strength. No gross muscle atrophy, no edema, no contractures. Bilateral lower extremities dry and scaly with venous discoloration. Neuro: Speech clear, face symmetrical. GCS 14. Patient with right-sided weakness. Psych: Alert and oriented to person and place. Appropriate and pleasant affect. Assessment and Plan of Care: Bilateral lower lobe pneumonia Sepsis secondary to above Bacteremia, ruled out repeat cultures showing no growth, initial culture believed to be contaminant Acute respiratory failure with hypoxia secondary to above Enlarged mediastinal lymph nodes, newly noted on CT Generalized weakness, progressively worsened 1 week -Oxygenation to be administered and titrated as needed to maintain SPO2 equal to or greater than 92% -Telemetry monitoring. -Monitor Pulse-oximetry -Duonebs scheduled and as needed for SOB and/or wheezing -Incentive Spirometry -Steroids: Decadron -Antibiotics: Doxycycline -Sputum culture -Covid PCR, influenza A and B PCR, and RSV negative -Pro-calcitonin slightly elevated at 0.25. Preliminary blood cultures positive for gram-negative positive cocci with repeat culture showing no growth to date. Initial cultures likely from contaminant. -Pulmonology consulted regarding newly noted enlarged mediastinal lymph nodes, appreciate recommendations -PT/OT consulted for evaluation and possible placement secondary to progressively worsening generalized weakness Acute kidney injury on chronic kidney disease stage III, likely multifactorial resulting from current infectious process along with urinary retention and contrast induced acute kidney injury. Urinary retention -Baseline creatinine 2.0. Morning labs revealing worsening renal function with BUN 70.9, creatinine 3.3, and GFR 16.6. -Hold nephrotoxic medications including lisinopril and Lasix -Patient received IV fluid hydration after receiving IV contrast on 06/25/22 resulting in TAWANNA -Urinalysis negative for infection. -English catheter management -Renal ultrasound negative for hydronephrosis and showing no evidence of obstructive uropathy. Ultrasound revealing increased echotexture to kidneys suggestive of medical renal disease -Nephrology following Hypertensive urgency, hypertension controlled at this time. History of CAD with CABG History of hypertension -Hypertensive urgency with blood pressure 213/75 and heart rate of 57. Hypertensive urgency has improved and has been controlled since resuming home medication regimen. -Lisinopril and Lasix to continue to be held secondary to acute kidney injury. -Hydralazine was increased to 100 mg 3 times daily and Procardia increased to 60 mg twice a day. Acute on chronic anemia -Hemoglobin 9.6 with baseline hemoglobin around 11.5. Likely secondary to wo rsening renal function. -No evidence of bleeding. -No need for transfusion at this time. We will continue to monitor closely with repeat a.m. labs and transfuse as needed for hemoglobin less than 7. History of hyperlipidemia -Home medications reviewed and reordered, patient to continue fenofibrate History of CVAs with right-sided deficits -Continue antiplatelet therapy with aspirin 325 mg daily. -Heparin for DVT prophylaxis. -Provide safe and supportive care with assistance as needed. -PT/OT consulted secondary to worsening generalized weakness over the past week. -Fall precautions CODE STATUS: Full code DVT prophylaxis: heparin Discussed with: patient and RN, left voice mail for Anticipated discharge date: clinical course to determine Anticipated discharge place: home A total of 34 minutes was spent on the care of this complex patient more than 50% of the time was spent in counseling and care coordination. Objective - Vital Signs Vital signs: Vital Signs Temp 97.0 F L 06/29/22 02:00 Pulse 64 06/29/22 08:59 Resp 20 06/29/22 08:00 BP 180/70 06/29/22 08:00 Pulse Ox 92 L 06/29/22 08:00 FiO2 21 06/28/22 08:39 Intake & Output 06/28/22 06/29/22 06/29/22 18:59 06:59 18:59 Output Total 1900 1000 Balance -1900 -1000 Output: Urine 1900 1000 Other: Voiding Method Indwelling Catheter Indwelling Catheter - Labs CBC & Chem 7: 06/28/22 06:22 06/29/22 05:54 Labs: Abnormal Lab Results - Last 24 Hours (Table) 06/28/22 06/28/22 Range/Units 11:27 17:04 POC Glucose (mg/dL) 146 H 204 H (70-110) mg/dL Microbiology - Last 24 Hours (Table) 06/27/22 06:54 Blood Culture - Preliminary Blood No Growth after 48 hours 06/26/22 18:43 Blood Culture Gram Stain - Final Blood Blood Culture - Final Diphtheroid species
[2022-06-29 20:14] LABS: Glucose,Whole Blood 205 mg/dL (70-110)
[2022-06-29] MEDS: INSULIN DETEMIR (LEVEMIR) 100 UNIT/ML SYR SQ SCH (20:49)
[2022-06-30] MEDS: hydrALAZINE HCL 20 MG/ML 1 ML VIAL IVP PRN (02:28)
[2022-06-30 06:41] LABS: Glucose,Whole Blood 124 mg/dL (70-110)
[2022-06-30] MEDS: FAMOTIDINE 20 MG TAB PO SCH ×2 (06:44→16:36)
[2022-06-30] MEDS: INSULIN ASPART (NovoLOG) 100 UNIT/ML VIAL SQ SCH ×4 (06:44→21:04)
[2022-06-30 07:35] LABS: HGB 11.3 gm/dL (13.0-17.5); Hypochromasia Marked; MCH 30.7 pg (25.0-35.0); MCHC 31.5 g/dL (31.0-37.0); MCV 97.5 fL (80.0-100.0); Mean Platelet Volume 9.1; Platelet Count 180 k/uL (150-450); RDW 14.9 % (11.5-15.5); WBC 8.2 k/uL (3.8-10.6)
[2022-06-30] MEDS: IPRATROPIUM-ALBUTEROL 3 ML NEB INHALATION SCH ×4 (08:05→20:26)
[2022-06-30 08:07] LABS: African American GFR (CKD) 32 (>60 ml/min/1.73 sqM); Anion Gap 3 mmol/L; Blood Urea Nitrogen 68 mg/dL (9-20); Calcium 8.4 mg/dL (8.4-10.2); Carbon Dioxide 26 mmol/L (22-30); Chloride 116 mmol/L (98-107); Glucose 102 mg/dL (74-99); Magnesium 2.4 mg/dL (1.6-2.3); Non-African American GFR(CKD) 27 (>60 ml/min/1.73 sqM); Potassium 4.7 mmol/L (3.5-5.1); Sodium 145 mmol/L (137-145)
[2022-06-30] MEDS: HEPARIN SODIUM,PORCINE/PF 5,000 UNIT/0.5 ML SYRINGE SQ SCH ×2 (08:20→21:04)
[2022-06-30] MEDS: METOPROLOL SUCCINATE (ER) 25 MG TAB.ER.24H PO SCH (08:20)
[2022-06-30] MEDS: hydrALAZINE HCL 50 MG TAB PO SCH ×3 (08:20→21:05)
[2022-06-30] MEDS: FENOFIBRATE 160 MG TAB PO SCH (08:20)
[2022-06-30] MEDS: METOPROLOL SUCCINATE (ER) 100 MG TAB.ER.24H PO SCH (08:20)
[2022-06-30 11:28] LABS: Glucose,Whole Blood 96 mg/dL (70-110)
--- NOTE | 2022-06-30 11:30 | P.PN ---
Subjective Patient is seen in follow-up for acute kidney injury on chronic kidney disease. Renal function stable. English catheter placed for urinary retention. Sitting up in chair. On room air. Denies chest pain or shortness of breath Serum creatinine down to 2.1 today from peak of 3.3. Baseline creatinine at about 2-2.2 mg/dL Objective - Vital Signs Vital signs: Vital Signs Temp 97.8 F 06/30/22 08:00 Pulse 66 06/30/22 11:14 Resp 18 06/30/22 08:00 BP 161/68 06/30/22 08:00 Pulse Ox 94 L 06/30/22 08:05 FiO2 21 06/28/22 08:39 Intake & Output 06/29/22 06/30/22 06/30/22 18:59 06:59 18:59 Output Total 400 700 Balance -400 -700 Weight 81.5 kg Output: Urine 400 700 Other: Voiding Method Indwelling Catheter Indwelling Catheter - Exam Patient is awake, comfortable, no acute distress Examination of the heart S1 and S2 Examination of the lungs bilateral breath sounds are heard Abdomen is soft nontender Examination lower extremities shows no significant edema - Labs CBC & Chem 7: 06/30/22 07:11 06/30/22 07:11 Labs: Abnormal Lab Results - Last 24 Hours (Table) 06/29/22 06/29/22 06/30/22 Range/Units 16:56 20:12 06:40 RBC (4.30-5.90) m/uL Hgb (13.0-17.5) gm/dL Hct (39.0-53.0) % Chloride (98-107) mmol/L BUN (9-20) mg/dL Creatinine (0.66-1.25) mg/dL Glucose (74-99) mg/dL POC Glucose (mg/dL) 244 H 205 H 124 H (70-110) mg/dL Magnesium (1.6-2.3) mg/dL 06/30/22 06/30/22 Range/Units 07:11 07:11 RBC 3.70 L (4.30-5.90) m/uL Hgb 11.3 L (13.0-17.5) gm/dL Hct 36.0 L (39.0-53.0) % Chloride 116 H (98-107) mmol/L BUN 68 H (9-20) mg/dL Creatinine 2.19 H (0.66-1.25) mg/dL Glucose 102 H (74-99) mg/dL POC Glucose (mg/dL) (70-110) mg/dL Magnesium 2.4 H (1.6-2.3) mg/dL Microbiology - Last 24 Hours (Table) 06/27/22 06:54 Blood Culture - Preliminary Blood No Growth after 72 hours 06/29/22 14:30 Urine Culture - Preliminary Urine,Catheterized Assessment and Plan Assessment: 1. Acute kidney injury secondary to ATN secondary to infection contrast-induced acute kidney injury, and further worsened with the use of MARIKA inhibitor and diuretics. Also component of urinary retention. Creatinine 2.17 on admission and peaked at 3.3 for this admission - 3.3 today. No hydronephrosis noted on kidney ultrasound. UA shows 1+ protein without blood. Received IV contrast on 06/25/2022. 2. ?Pneumonia s/p antibiotics. Blood culture positive for diphtheroid. 3. Chronic kidney disease stage IIIB/4 with baseline creatinine in the range of 1.5-2 secondary to nephrosclerosis and diabetic kidney disease. Last seen in the office in 2018. 4. Diabetes mellitus. 5. Hypertension with chronic kidney disease. 6. Urinary retention. Has English catheter. Plan: Continue with English catheter Outpatient follow-up for CK D Continue with Flomax
[2022-06-30] MEDS: ASPIRIN 325 MG TAB PO SCH (16:36)
[2022-06-30 16:45] LABS: Glucose,Whole Blood 141 mg/dL (70-110)
[2022-06-30] MEDS: TAMSULOSIN 0.4 MG CAP.ER.24H PO SCH (17:44)
--- NOTE | 2022-06-30 18:33 | P.PN ---
Subjective Progress Note Date: 06/30/22 Hospital course: Patient is a very pleasant 82-year-old male with a past medical history is CAD with CABG, multiple CVAs with right-sided deficits, hypertension, h yperlipidemia, insulin-dependent diabetes mellitus, stage III chronic kidney disease with baseline creatinine of 2.0, and dementia. He lives at home with and reports walking with a walker. Patient presented to the emergency department with the chief complaint of shortness of breath beginning approximately one week ago and progressively worsening. He arrived via EMS and per review of documentation, patient was initially found to be hypoxic with SpO2 of 84% requiring oxygen supplementation. Patient underwent full evaluation in the emergency department. Chest x-ray was completed and upon review it as showing interstitial edema and blunting of left costophrenic angle concerning for heart failure and pneumonia. EKG showing sinus bradycardia at 57 bpm. Labs completed and reviewed. CBC revealing normocytic anemia with hemoglobin of 12.3 which is at baseline, BMP consistent with stage IIIc daily with BUN of 55, creatinine 2.17, and GFR of 28 with baseline creatinine of 2.0. Coagulation profile revealing an elevated d-dimer of 1.65. CTA chest was completed. Upon review, CTA chest showing no evidence of pulmonary emboli revealing bilateral lower lobe pneumonia and atelectasis with pleural effusions, radiologist also reporting lung abnormalities with enlarged mediastinal lymph nodes which are reportedly new when compared to previous CT completed 06/14/19. Patient started on antibiotics Rocephin and doxycycline for treatment of community-acquired pneumonia and being admitted under our services with consultation to pulmonology. Status post receiving contrast from CTA patient developed an acute kidney injury on stage III chronic kidney disease. Patient was started on IV fluid hydration and all nephrotoxic medications were discontinued at this time. Nephrology consulted. Physical exam: Patient seen and fully evaluated at bedside this morning. He was watching football on TV and currently denying having any complaints. Morning labs reviewed and renal function with much improvement today and nearly back at baseline level with BUN 68, creatinine 2.19, and GFR of 27. English catheter remains in place with a documented alcohol 1100 mL of output over the past 24 hours. patient to be evaluated by PT/OT tomorrow morning and plan for likely discharge within the next 24-48 hours. Vital signs reviewed and stable. General: patient appears acutely ill, appears normal range Derm: Skin warm and dry, normal coloration for ethnicity. Head: Atraumatic, normocephalic and symmetric. Eyes: EOMs intact, no lid lag, and anicteric sclera Mouth: no lip lesions, mucus membranedry Cardiovascular: regular rate and rhythm with normal S1S2, systolic murmur, positive posterior tibial pulses bilaterally, and cap refill < 2 seconds. Lungs: Respirations even, regular, and unlabored on 2 L O2 via nasal cannula . Lungs diffuse scattered rhonchi with diffuse expiratory wheezes bilaterally. No accessory muscle usage. Abdominal: soft, nontender to palpation, no guarding, no appreciable organomegaly Ext: Movement and sensation intact in all 4 extremities. Patient with significant right-sided weakness, he is able to move arm slightly 1 out of 5 strength and hand is contracted. Right lower extremity weakness 2 out of 5 str ength. No gross muscle atrophy, no edema, no contractures. Bilateral lower extremities dry and scaly with venous discoloration. Neuro: Speech clear, face symmetrical. GCS 14. Patient with right-sided weakness. Psych: Alert and oriented to person and place. Appropriate and pleasant affect. Assessment and Plan of Care: Acute kidney injury on chronic kidney disease stage III, likely multifactorial resulting from current infectious process along with urinary retention and contrast induced acute kidney injury. Urinary retention, English catheter placed -Baseline creatinine 2.0. significantly improved and nearly back to baseline with BUN 68, creatinine 2.19, and GFR of 27. English catheter to remain in place upon discharge. -Hold nephrotoxic medications including lisinopril and Lasix -Patient received IV fluid hydration after receiving IV contrast on 06/25/22 resulting in TAWANNA -Urinalysis negative for infection. -English catheter management -Renal ultrasound negative for hydronephrosis and showing no evidence of obstructive uropathy. Ultrasound revealing increased echotexture to kidneys suggestive of medical renal disease -Nephrology following -urology evaluated. Bilateral lower lobe pneumonia, completed course of doxycycline 5 days and ceftriaxone 3 days Bacteremia, ruled out repeat cultures showing no growth, initial culture believed to be contaminant Acute respiratory failure with hypoxia secondary to above Enlarged mediastinal lymph nodes, newly noted on CT Generalized weakness, progressively worsened 1 week -Oxygenation to be administered and titrated as needed to maintain SPO2 equal to or greater than 92% -Telemetry monitoring. -Monitor Pulse-oximetry -Duonebs scheduled and as needed for SOB and/or wheezing -Incentive Spirometry -Steroids: Decadron -Antibiotics: Doxycycline -Sputum culture -Covid PCR, influenza A and B PCR, and RSV negative -Pro-calcitonin slightly elevated at 0.25. Preliminary blood cultures positive for gram-negative positive cocci with repeat culture showing no growth to date. Initial cultures likely from contaminant. -Pulmonology consulted regarding newly noted enlarged mediastinal lymph nodes, appreciate recommendations -PT/OT consulted for evaluation and possible placement secondary to progressively worsening generalized weakness Hypertensive urgency, hypertension controlled at this time. History of CAD with CABG History of hypertension -Hypertensive urgency with blood pressure 213/75 and heart rate of 57. Hypertensive urgency has improved and has been controlled since resuming home medication regimen. -Lisinopril and Lasix to continue to be held secondary to acute kidney injury. -Hydralazine was increased to 100 mg 3 times daily and Procardia increased to 60 mg twice a day. Acute on chronic anemia -Hemoglobin 9.6 with baseline hemoglobin around 11.5. Likely secondary to worsening renal function. -No evidence of bleeding. -No need for transfusion at this time. We will continue to monitor closely with repeat a.m. labs and transfuse as needed for hemoglobin less than 7. History of hyperlipidemia -Home medications reviewed and reordered, patient to continue fenofibrate History of CVAs with right-sided deficits -Continue antiplatelet therapy with aspirin 325 mg daily. -Heparin for DVT prophylaxis. -Provide safe and supportive care with assistance as needed. -PT/OT consulted secondary to worsening generalized weakness over the past week. -Fall precautions CODE STATUS: Full code DVT prophylaxis: heparin Discussed with: patient and pt's along with RN Anticipated discharge date: clinical course to determine Anticipated discharge place: home A total of 33 minutes was spent on the care of this complex patient more than 50% of the time was spent in counseling and care coordination. Objective - Vital Signs Vital signs: Vital Signs Temp 97.8 F 06/30/22 08:00 Pulse 61 06/30/22 08:00 Resp 18 06/30/22 08:00 BP 161/68 06/30/22 08:00 Pulse Ox 94 L 06/30/22 08:05 FiO2 21 06/28/22 08:39 Intake & Output 06/29/22 06/30/22 06/30/22 18:59 06:59 18:59 Output Total 400 700 Balance -400 -700 Output: Urine 400 700 Other: Voiding Method Indwelling Catheter - Labs CBC & Chem 7: 06/30/22 07:11 06/30/22 07:11 Labs: Abnormal Lab Results - Last 24 Hours (Table) 06/29/22 06/29/22 06/29/22 Range/Units 05:54 11:08 16:56 RBC (4.30-5.90) m/uL Hgb (13.0-17.5) gm/dL Hct (39.0-53.0) % Chloride 111 H (96-109) mmol/L Anion Gap 7.50 L (10.00-18.00) mmol/L BUN 71.0 H (9.0-27.0) mg/dL Creatinine 3.0 H (0.6-1.5) mg/dL Est GFR (CKD-EPI)AfAm 21.6 L (60.0-200.0) Est GFR (CKD-EPI)NonAf 18.6 L (60.0-200.0) BUN/Creatinine Ratio 23.67 H (12.00-20.00) Ratio Glucose (74-99) mg/dL POC Glucose (mg/dL) 137 H 244 H (70-110) mg/dL Calcium 8.6 L (8.7-10.3) mg/dL Magnesium (1.6-2.3) mg/dL 06/29/22 06/30/22 06/30/22 Range/Units 20:12 06:40 07:11 RBC 3.70 L (4.30-5.90) m/uL Hgb 11.3 L (13.0-17.5) gm/dL Hct 36.0 L (39.0-53.0) % Chloride (96-109) mmol/L Anion Gap (10.00-18.00) mmol/L BUN (9.0-27.0) mg/dL Creatinine (0.6-1.5) mg/dL Est GFR (CKD-EPI)AfAm (60.0-200.0) Est GFR (CKD-EPI)NonAf (60.0-200.0) BUN/Creatinine Ratio (12.00-20.00) Ratio Glucose (74-99) mg/dL POC Glucose (mg/dL) 205 H 124 H (70-110) mg/dL Calcium (8.7-10.3) mg/dL Magnesium (1.6-2.3) mg/dL 06/30/22 Range/Units 07:11 RBC (4.30-5.90) m/uL Hgb (13.0-17.5) gm/dL Hct (39.0-53.0) % Chloride 116 H (96-109) mmol/L Anion Gap (10.00-18.00) mmol/L BUN 68 H (9.0-27.0) mg/dL Creatinine 2.19 H (0.6-1.5) mg/dL Est GFR (CKD-EPI)AfAm (60.0-200.0) Est GFR (CKD-EPI)NonAf (60.0-200.0) BUN/Creatinine Ratio (12.00-20.00) Ratio Glucose 102 H (74-99) mg/dL POC Glucose (mg/dL) (70-110) mg/dL Calcium (8.7-10.3) mg/dL Magnesium 2.4 H (1.6-2.3) mg/dL Microbiology - Last 24 Hours (Table) 06/29/22 14:30 Urine Culture - Preliminary Urine,Catheterized 06/27/22 06:54 Blood Culture - Preliminary Blood No Growth after 48 hours
[2022-06-30 19:32] LABS: Glucose,Whole Blood 164 mg/dL (70-110)
[2022-06-30] MEDS: INSULIN DETEMIR (LEVEMIR) 100 UNIT/ML SYR SQ SCH (21:04)
[2022-07-01 06:18] LABS: Glucose,Whole Blood 34 mg/dL (70-110)
[2022-07-01 06:37] LABS: Glucose,Whole Blood 66 mg/dL (70-110)
[2022-07-01] MEDS: INSULIN ASPART (NovoLOG) 100 UNIT/ML VIAL SQ SCH ×4 (06:39→21:24)
[2022-07-01] MEDS: FAMOTIDINE 20 MG TAB PO SCH ×2 (07:18→16:41)
[2022-07-01 07:19] LABS: Glucose,Whole Blood 96 mg/dL (70-110)
[2022-07-01] MEDS: IPRATROPIUM-ALBUTEROL 3 ML NEB INHALATION SCH ×4 (08:50→21:57)
[2022-07-01] MEDS: hydrALAZINE HCL 50 MG TAB PO SCH ×3 (09:19→21:25)
[2022-07-01] MEDS: HEPARIN SODIUM,PORCINE/PF 5,000 UNIT/0.5 ML SYRINGE SQ SCH ×2 (09:19→21:23)
[2022-07-01] MEDS: FERROUS SULFATE 325 MG TAB PO SCH (09:19)
[2022-07-01] MEDS: FENOFIBRATE 160 MG TAB PO SCH (09:20)
[2022-07-01] MEDS: METOPROLOL SUCCINATE (ER) 25 MG TAB.ER.24H PO SCH (09:20)
[2022-07-01] MEDS: METOPROLOL SUCCINATE (ER) 100 MG TAB.ER.24H PO SCH (09:20)
[2022-07-01 11:05] LABS: Glucose,Whole Blood 156 mg/dL (70-110)
--- NOTE | 2022-07-01 11:36 | P.PN ---
Subjective Patient is seen in follow-up for acute kidney injury on chronic kidney disease. Renal function stable. English catheter placed for urinary retention. On room air. Denies chest pain or shortness of breath Serum creatinine down to 2.1 today from peak of 3.3. Baseline creatinine at about 2-2.2 mg/dL Objective - Vital Signs Vital signs: Vital Signs Temp 97.5 F L 07/01/22 08:00 Pulse 62 07/01/22 09:02 Resp 19 07/01/22 08:00 BP 147/63 07/01/22 08:00 Pulse Ox 99 07/01/22 08:53 FiO2 21 06/28/22 08:39 Intake & Output 06/30/22 07/01/22 07/01/22 18:59 06:59 18:59 Output Total 600 900 Balance -600 -900 Weight 84 kg Output: Urine 600 900 Other: Voiding Method Indwelling Catheter Indwelling Catheter - Exam Patient is awake, comfortable, no acute distress Examination of the heart S1 and S2 Examination of the lungs bilateral breath sounds are heard Abdomen is soft nontender Examination lower extremities shows no significant edema - Labs CBC & Chem 7: 06/30/22 07:11 06/30/22 07:11 Labs: Abnormal Lab Results - Last 24 Hours (Table) 06/30/22 06/30/22 07/01/22 Range/Units 16:43 19:30 06:17 POC Glucose (mg/dL) 141 H 164 H 34 L (70-110) mg/dL 07/01/22 07/01/22 Range/Units 06:36 11:03 POC Glucose (mg/dL) 66 L 156 H (70-110) mg/dL Microbiology - Last 24 Hours (Table) 06/27/22 06:54 Blood Culture - Preliminary Blood No Growth after 96 hours 06/29/22 14:30 Urine Culture - Final Urine,Catheterized Assessment and Plan Assessment: 1. Acute kidney injury secondary to ATN secondary to infection contrast-induced acute kidney injury, and further worsened with the use of MARIKA inhibitor and di uretics. Also component of urinary retention. Creatinine 2.17 on admission and peaked at 3.3 for this admission -2.1 today. No hydronephrosis noted on kidney ultrasound. UA shows 1+ protein without blood. Received IV contrast on 06/25/2022. 2. ?Pneumonia s/p antibiotics. Blood culture positive for diphtheroid. 3. Chronic kidney disease stage IIIB/4 with baseline creatinine in the range of 1.5-2 secondary to nephrosclerosis and diabetic kidney disease. Last seen in the office in 2018. 4. Diabetes mellitus. 5. Hypertension with chronic kidney disease. 6. Urinary retention. Has English catheter. Plan: Continue with English catheter Outpatient follow-up for CK D Continue with Flomax
[2022-07-01] MEDS: ASPIRIN 325 MG TAB PO SCH (16:42)
[2022-07-01 16:53] LABS: Glucose,Whole Blood 160 mg/dL (70-110)
--- NOTE | 2022-07-01 17:12 | P.PN ---
Subjective Progress Note Date: 07/01/22 Hospital course: Patient is a very pleasant 82-year-old male with a past medical history is CAD with CABG, multiple CVAs with right-sided deficits, hypertension, h yperlipidemia, insulin-dependent diabetes mellitus, stage III chronic kidney disease with baseline creatinine of 2.0, and dementia. He lives at home with and reports walking with a walker. Patient presented to the emergency department with the chief complaint of shortness of breath beginning approximately one week ago and progressively worsening. He arrived via EMS and per review of documentation, patient was initially found to be hypoxic with SpO2 of 84% requiring oxygen supplementation. Patient underwent full evaluation in the emergency department. Chest x-ray was completed and upon review it as showing interstitial edema and blunting of left costophrenic angle concerning for heart failure and pneumonia. EKG showing sinus bradycardia at 57 bpm. Labs completed and reviewed. CBC revealing normocytic anemia with hemoglobin of 12.3 which is at baseline, BMP consistent with stage IIIc daily with BUN of 55, creatinine 2.17, and GFR of 28 with baseline creatinine of 2.0. Coagulation profile revealing an elevated d-dimer of 1.65. CTA chest was completed. Upon review, CTA chest showing no evidence of pulmonary emboli revealing bilateral lower lobe pneumonia and atelectasis with pleural effusions, radiologist also reporting lung abnormalities with enlarged mediastinal lymph nodes which are reportedly new when compared to previous CT completed 06/14/19. Patient started on antibiotics Rocephin and doxycycline for treatment of community-acquired pneumonia and being admitted under our services with consultation to pulmonology. Status post receiving contrast from CTA patient developed an acute kidney injury on stage III chronic kidney disease. Patient was started on IV fluid hydration and all nephrotoxic medications were discontinued at this time. Nephrology consulted. 07/01/22: Patient seen and fully evaluated up at the bedside this morning. He was sitting up in the chair and again watching football. Patient's at bedside. Patient continues to have difficulties with ambulation and remained shaky requiring assistance for transfers. Awaiting PT/OT to reevaluate as patient will likely need Placement. Plan is for discharge tomorrow would pending insur ance authorization. This morning patient had episode of hypoglycemia with blood glucose levels dropping to 34 requiring intervention with administration of D50. This also occurred evening of 06/27/22. Levemir being discontinued at this time and patient to continue with sliding scale. Insurance company is not available today to initiate authorization. Plan for discharge in the next 24-48 hours once insurance authorization can be obtained. Blood pressures appear to be better manage this morning with blood pressure 135/61 and repeat of 147/63. We will continue with changed doses of hydralazine and Procardia at this time with no further changes. Physical exam: Vital signs reviewed and stable. General: patient appears acutely ill, appears normal range Derm: Skin warm and dry, normal coloration for ethnicity. Head: Atraumatic, normocephalic and symmetric. Eyes: EOMs intact, no lid lag, and anicteric sclera Mouth: no lip lesions, mucus membranedry Cardiovascular: regular rate and rhythm with normal S1S2, systolic murmur, positive posterior tibial pulses bilaterally, and cap refill < 2 seconds. Lungs: Respirations even, regular, and unlabored on 2 L O2 via nasal cannula . Lungs diffuse scattered rhonchi with diffuse expiratory wheezes bilaterally. No accessory muscle usage. Abdominal: soft, nontender to palpation, no guarding, no appreciable organomegaly Ext: Movement and sensation intact in all 4 extremities. Patient with significant right-sided weakness, he is able to move arm slightly 1 out of 5 strength and hand is contracted. Right lower extremity weakness 2 out of 5 strength. No gross muscle atrophy, no edema, no contractures. Bilateral lower extremities dry and scaly with venous discoloration. Neuro: Speech clear, face symmetrical. GCS 14. Patient with right-sided weakness. Psych: Alert and oriented to person and place. Appropriate and pleasant affect. Assessment and Plan of Care: Acute kidney injury on chronic kidney disease stage III, likely multifactorial resulting from current infectious process along with urinary retention and contrast induced acute kidney injury. Urinary retention, English catheter placed -Baseline creatinine 2.0. significantly improved and baseline with BUN 68, creatinine 2.19, and GFR of 27. English catheter to remain in place upon discharge. -Hold nephrotoxic medications including lisinopril and Lasix -Patient received IV fluid hydration after receiving IV contrast on 06/25/22 resulting in TAWANNA -Urinalysis negative for infection. -English catheter management -Renal ultrasound negative for hydronephrosis and showing no evidence of obstructive uropathy. Ultrasound revealing increased echotexture to kidneys suggestive of medical renal disease -Nephrology following -urology evaluated. Bilateral lower lobe pneumonia, completed course of doxycycline 5 days and ceftriaxone 3 days Bacteremia, ruled out repeat cultures showing no growth, initial culture believed to be contaminant Acute respiratory failure with hypoxia secondary to above Enlarged mediastinal lymph nodes, newly noted on CT Generalized weakness, progressively worsened 1 week -Oxygenation to be administered and titrated as needed to maintain SPO2 equal to or greater than 92% -Telemetry monitoring. -Monitor Pulse-oximetry -Duonebs scheduled and as needed for SOB and/or wheezing -Incentive Spirometry -Steroids: Decadron -Antibiotics: Doxycycline -Sputum culture -Covid PCR, influenza A and B PCR, and RSV negative -Pro-calcitonin slightly elevated at 0.25. Preliminary blood cultures positive for gram-negative positive cocci with repeat culture showing no growth to date. Initial cultures likely from contaminant. -Pulmonology consulted regarding newly noted enlarged mediastinal lymph nodes, appreciate recommendations -PT/OT consulted for evaluation and possible placement secondary to progressively worsening generalized weakness Hypertensive urgency, hypertension controlled at this time. History of CAD with CABG History of hypertension -Hypertensive urgency with blood pressure 213/75 and heart rate of 57. Hypertensive urgency has improved and has been controlled since resuming home medication regimen. -Lisinopril and Lasix to continue to be held secondary to acute kidney injury. -Hydralazine was increased to 100 mg 3 times daily and Procardia increased to 60 mg twice a day. Acute on chronic anemia, resolved. -Hemoglobin stable at 11.3 with baseline hemoglobin around 11.5. History of hyperlipidemia -Home medications reviewed and reordered, patient to continue fenofibrate History of CVAs with right-sided deficits -Continue antiplatelet therapy with aspirin 325 mg daily. -Heparin for DVT prophylaxis. -Provide safe and supportive care with assistance as needed. -PT/OT consulted secondary to worsening generalized weakness over the past week. -Fall precautions CODE STATUS: Full code DVT prophylaxis: heparin Discussed with: patient, pt's and RN Anticipated discharge date: Pending insurance authorization, likely within the next 24 hours Anticipated discharge [facility] A total of 35 minutes was spent on the care of this complex patient more than 50% of the time was spent in counseling and care coordination. Objective - Vital Signs Vital signs: Vital Signs Temp 97.5 F L 07/01/22 08:00 Pulse 62 07/01/22 09:02 Resp 19 07/01/22 08:00 BP 147/63 07/01/22 08:00 Pulse Ox 99 07/01/22 08:53 FiO2 21 06/28/22 08:39 Intake & Output 06/30/22 07/01/22 07/01/22 18:59 06:59 18:59 Output Total 600 900 Balance -600 -900 Weight 84 kg Output: Urine 600 900 Other: Voiding Method Indwelling Catheter Indwelling Catheter - Labs CBC & Chem 7: 06/30/22 07:11 06/30/22 07:11 Labs: Abnormal Lab Results - Last 24 Hours (Table) 06/30/22 06/30/22 07/01/22 Range/Units 16:43 19:30 06:17 POC Glucose (mg/dL) 141 H 164 H 34 L (70-110) mg/dL 07/01/22 Range/Units 06:36 POC Glucose (mg/dL) 66 L (70-110) mg/dL Microbiology - Last 24 Hours (Table) 06/27/22 06:54 Blood Culture - Preliminary Blood No Growth after 96 hours 06/29/22 14:30 Urine Culture - Final Urine,Catheterized
[2022-07-01] MEDS: TAMSULOSIN 0.4 MG CAP.ER.24H PO SCH (17:43)
[2022-07-01 20:41] LABS: Glucose,Whole Blood 217 mg/dL (70-110)
[2022-07-02 07:02] LABS: Glucose,Whole Blood 85 mg/dL (70-110)
[2022-07-02] MEDS: INSULIN ASPART (NovoLOG) 100 UNIT/ML VIAL SQ SCH ×3 (07:07→16:46)
[2022-07-02] MEDS: METOPROLOL SUCCINATE (ER) 100 MG TAB.ER.24H PO SCH (07:28)
[2022-07-02] MEDS: FAMOTIDINE 20 MG TAB PO SCH ×2 (07:29→17:42)
[2022-07-02] MEDS: METOPROLOL SUCCINATE (ER) 25 MG TAB.ER.24H PO SCH (07:29)
[2022-07-02] MEDS: FENOFIBRATE 160 MG TAB PO SCH (07:29)
[2022-07-02] MEDS: hydrALAZINE HCL 50 MG TAB PO SCH ×2 (07:29→15:54)
[2022-07-02] MEDS: HEPARIN SODIUM,PORCINE/PF 5,000 UNIT/0.5 ML SYRINGE SQ SCH (07:30)
[2022-07-02 08:34] LABS: HCT 33.3 % (39.6-50.0); HGB 10.3 g/dL (13.0-17.0); MCH 29.6 pg (27.0-32.0); MCHC 30.9 g/dL (32.0-37.0); MCV 95.7 fL (80.0-97.0); Mean Platelet Volume 11.7 fL (9.5-12.2); NRBC Per 100 WBC 0 /100 WBCS (0.0-0.0); Platelet Count 175 X 10*3/uL (140-440); RBC 3.48 X 10*6/uL (4.40-5.60); RDW 15.9 % (11.5-14.5); WBC 7.32 X 10*3/uL (4.50-10.00)
[2022-07-02] MEDS: IPRATROPIUM-ALBUTEROL 3 ML NEB INHALATION SCH ×4 (08:47→21:33)
[2022-07-02 08:54] LABS: ALT 16 U/L (10-49); AST 27 U/L (14-35); African American GFR (CKD) 33.2 (60.0-200.0); Alkaline Phosphatase 48 U/L (41-126); BUN/Creat Ratio 27.29 Ratio (12.00-20.00); Blood Urea Nitrogen 57.3 mg/dL (9.0-27.0); Calcium 8.6 mg/dL (8.7-10.3); Carbon Dioxide 25.2 mmol/L (20.0-27.5); Chloride 114 mmol/L (96-109); Globulin 2.5 g/dL (1.6-3.3); Glucose 98 mg/dL (70-110); Magnesium 2.5 mg/dL (1.5-2.4); Non-African American GFR(CKD) 28.7 (60.0-200.0); Sodium 146 mmol/L (135-145); Total Bilirubin <0.15 mg/dL (0.30-1.20); Total Protein 5.5 g/dL (6.2-8.2)
[2022-07-02 10:01] VITALS: BMI 26.5
--- NOTE | 2022-07-02 10:34 | P.PN ---
Subjective Patient is seen in follow-up for acute kidney injury on chronic kidney disease. Renal function stable. English catheter placed for urinary retention. On room air. Denies chest pain or shortness of breath Serum creatinine down to 2.1 today from peak of 3.3. Baseline creatinine at about 2-2.2 mg/dL No complaints Objective - Vital Signs Vital signs: Vital Signs Temp 97.7 F 07/02/22 08:04 Pulse 68 07/02/22 08:58 Resp 17 07/02/22 08:04 BP 136/71 07/02/22 08:04 Pulse Ox 91 L 07/02/22 08:04 FiO2 21 06/28/22 08:39 Intake & Output 07/01/22 07/02/22 07/02/22 18:59 06:59 18:59 Output Total 475 Balance -475 Weight 84 kg Output: Urine 475 Other: Voiding Method Indwelling Catheter Indwelling Catheter - Exam Patient is awake, comfortable, no acute distress, receiving updraft treatment Examination of the heart S1 and S2 Examination of the lungs bilateral breath sounds are heard Abdomen is soft nontender Examination lower extremities shows no significant edema - Labs CBC & Chem 7: 07/02/22 04:46 07/02/22 04:46 Labs: Abnormal Lab Results - Last 24 Hours (Table) 07/01/22 07/01/22 07/01/22 Range/Units 11:03 16:52 20:29 RBC (4.40-5.60) X 10*6/uL Hgb (13.0-17.0) g/dL Hct (39.6-50.0) % MCHC (32.0-37.0) g/dL RDW (11.5-14.5) % Sodium (135-145) mmol/L Chloride (96-109) mmol/L Anion Gap (10.00-18.00) mmol/L BUN (9.0-27.0) mg/dL Creatinine (0.6-1.5) mg/dL Est GFR (CKD-EPI)AfAm (60.0-200.0) Est GFR (CKD-EPI)NonAf (60.0-200.0) BUN/Creatinine Ratio (12.00-20.00) Ratio POC Glucose (mg/dL) 156 H 160 H 217 H (70-110) mg/dL Calcium (8.7-10.3) mg/dL Magnesium (1.5-2.4) mg/dL Total Bilirubin (0.30-1.20) mg/dL Total Protein (6.2-8.2) g/dL Albumin (3.8-4.9) g/dL Albumin/Globulin Ratio (1.60-3.17) g/dL 07/02/22 07/02/22 Range/Units 04:46 04:46 RBC 3.48 L (4.40-5.60) X 10*6/uL Hgb 10.3 L (13.0-17.0) g/dL Hct 33.3 L (39.6-50.0) % MCHC 30.9 L (32.0-37.0) g/dL RDW 15.9 H (11.5-14.5) % Sodium 146 H (135-145) mmol/L Chloride 114 H (96-109) mmol/L Anion Gap 6.80 L (10.00-18.00) mmol/L BUN 57.3 H (9.0-27.0) mg/dL Creatinine 2.1 H (0.6-1.5) mg/dL Est GFR (CKD-EPI)AfAm 33.2 L (60.0-200.0) Est GFR (CKD-EPI)NonAf 28.7 L (60.0-200.0) BUN/Creatinine Ratio 27.29 H (12.00-20.00) Ratio POC Glucose (mg/dL) (70-110) mg/dL Calcium 8.6 L (8.7-10.3) mg/dL Magnesium 2.5 H (1.5-2.4) mg/dL Total Bilirubin <0.15 L (0.30-1.20) mg/dL Total Protein 5.5 L (6.2-8.2) g/dL Albumin 3.0 L (3.8-4.9) g/dL Albumin/Globulin Ratio 1.20 L (1.60-3.17) g/dL Microbiology - Last 24 Hours (Table) 06/27/22 06:54 Blood Culture - Preliminary Blood No Growth after 120 hours Assessment and Plan Assessment: 1. Acute kidney injury secondary to ATN secondary to infection contrast-induced acute kidney injury, and further worsened with the use of MARIKA inhibitor and diuretics. Also component of urinary retention. Creatinine 2.17 on admission and peaked at 3.3 for this admission -2.1 today. No hydronephrosis noted on kidney ultrasound. UA shows 1+ protein without blood. Received IV contrast on 06/25/2022. 2. ?Pneumonia s/p antibiotics. Blood culture positive for diphtheroid. 3. Chronic kidney disease stage IIIB/4 with baseline creatinine in the range of 1.5-2 secondary to nephrosclerosis and diabetic kidney disease. Last seen in the office in 2018. 4. Diabetes mellitus. 5. Hypertension with chronic kidney disease. 6. Urinary retention. Has English catheter. Plan: Continue with English catheter Outpatient follow-up for CK D Continue with Flomax
[2022-07-02 11:45] LABS: Glucose,Whole Blood 96 mg/dL (70-110)
[2022-07-02 16:42] LABS: Glucose,Whole Blood 122 mg/dL (70-110)
--- NOTE | 2022-07-02 16:56 | P.PN ---
Subjective Progress Note Date: 07/02/22 Hospital course: Patient is a very pleasant 82-year-old male with a past medical history is CAD with CABG, multiple CVAs with right-sided deficits, hypertension, h yperlipidemia, insulin-dependent diabetes mellitus, stage III chronic kidney disease with baseline creatinine of 2.0, and dementia. He lives at home with and reports walking with a walker. Patient presented to the emergency department with the chief complaint of shortness of breath beginning approximately one week ago and progressively worsening. He arrived via EMS and per review of documentation, patient was initially found to be hypoxic with SpO2 of 84% requiring oxygen supplementation. Patient underwent full evaluation in the emergency department. Chest x-ray was completed and upon review it as showing interstitial edema and blunting of left costophrenic angle concerning for heart failure and pneumonia. EKG showing sinus bradycardia at 57 bpm. Labs completed and reviewed. CBC revealing normocytic anemia with hemoglobin of 12.3 which is at baseline, BMP consistent with stage IIIc daily with BUN of 55, creatinine 2.17, and GFR of 28 with baseline creatinine of 2.0. Coagulation profile revealing an elevated d-dimer of 1.65. CTA chest was completed. Upon review, CTA chest showing no evidence of pulmonary emboli revealing bilateral lower lobe pneumonia and atelectasis with pleural effusions, radiologist also reporting lung abnormalities with enlarged mediastinal lymph nodes which are reportedly new when compared to previous CT completed 06/14/19. Patient started on antibiotics Rocephin and doxycycline for treatment of community-acquired pneumonia and being admitted under our services with consultation to pulmonology. Status post receiving contrast from CTA patient developed an acute kidney injury on stage III chronic kidney disease. Patient was started on IV fluid hydration and all nephrotoxic medications were discontinued at this time. Nephrology consulted. 07/01/22: Patient seen and fully evaluated up at the bedside this morning. He was sitting up in the chair and again watching football. Patient's at bedside. Patient continues to have difficulties with ambulation and remained shaky requiring assistance for transfers. Awaiting PT/OT to reevaluate as patient will likely need Placement. Plan is for discharge tomorrow would pending insur ance authorization. This morning patient had episode of hypoglycemia with blood glucose levels dropping to 34 requiring intervention with administration of D50. This also occurred evening of 06/27/22. Levemir being discontinued at this time and patient to continue with sliding scale. Insurance company is not available today to initiate authorization. Plan for discharge in the next 24-48 hours once insurance authorization can be obtained. Blood pressures appear to be better manage this morning with blood pressure 135/61 and repeat of 147/63. We will continue with changed doses of hydralazine and Procardia at this time with no further changes. 07/02/22: Patient again seen and fully evaluated at bedside this morning. Patient sitting up in chair and planning to go to rehabilitation center. We are currently awaiting insurance authorization and planning for patient to be discharged to [facility] for rehabilitation. Morning labs reviewed and stable. Hemoglobin 10.3 and renal function remains at baseline with BUN 57.3, creatinine 2.1, and GFR of 28.7. Patient to continue Flomax at this time. Vital signs stable with no further episodes of uncontrolled hypertension since initiation of Procardia in addition to hydralazine 3 times a day. Medically, patient is stable and once insurance authorization is obtained, will plan for discharge. Patient's is in agreement with this plan. Physical exam: Vital signs reviewed and stable. General: patient appears acutely ill, appears normal range Derm: Skin warm and dry, normal coloration for ethnicity. Head: Atraumatic, normocephalic and symmetric. Eyes: EOMs intact, no lid lag, and anicteric sclera Mouth: no lip lesions, mucus membranedry Cardiovascular: regular rate and rhythm with normal S1S2, systolic murmur, positive posterior tibial pulses bilaterally, and cap refill < 2 seconds. Lungs: Respirations even, regular, and unlabored on 2 L O2 via nasal cannula . Lungs diffuse scattered rhonchi with diffuse expiratory wheezes bilaterally. No accessory muscle usage. Abdominal: soft, nontender to palpation, no guarding, no appreciable organomegaly Ext: Movement and sensation intact in all 4 extremities. Patient with significant right-sided weakness, he is able to move arm slightly 1 out of 5 strength and hand is contracted. Right lower extremity weakness 2 out of 5 strength. No gross muscle atrophy, no edema, no contractures. Bilateral lower extremities dry and scaly with venous discoloration. Neuro: Speech clear, face symmetrical. GCS 14. Patient with right-sided weakness. Psych: Alert and oriented to person and place. Appropriate and pleasant aff ect. Assessment and Plan of Care: Acute kidney injury on chronic kidney disease stage III, likely multifactorial resulting from current infectious process along with urinary retention and contrast induced acute kidney injury. Urinary retention, English catheter placed -Baseline creatinine 2.0. significantly improved and baseline with BUN 68, creatinine 2.19, and GFR of 27. English catheter to remain in place upon discharge. -Hold nephrotoxic medications including lisinopril and Lasix -Patient received IV fluid hydration after receiving IV contrast on 06/25/22 resulting in [place] -Urinalysis negative for infection. -English catheter management -Renal ultrasound negative for hydronephrosis and showing no evidence of obstructive uropathy. Ultrasound revealing increased echotexture to kidneys suggestive of medical renal disease -Nephrology followingAnd clearing patient for outpatient follow-up in their office for management/monitoring of his chronic kidney disease Bilateral lower lobe pneumonia, completed course of doxycycline 5 days and ceftriaxone 3 days Bacteremia, ruled out repeat cultures showing no growth, initial culture believed to be contaminant Acute respiratory failure with hypoxia secondary to above Enlarged mediastinal lymph nodes, newly noted on CT Generalized weakness, progressively worsened 1 week -Oxygenation to be administered and titrated as needed to maintain SPO2 equal to or greater than 92% -Telemetry monitoring. -Monitor Pulse-oximetry -Duonebs scheduled and as needed for SOB and/or wheezing -Incentive Spirometry -Antibiotics: patient completed course of Doxycycline. -Blood cultures positive for diphtheroid species, contaminant. Repeat blood c ultures negative. -Covid PCR, influenza A and B PCR, and RSV negative -Pro-calcitonin slightly elevated at 0.25. Preliminary blood cultures positive for gram-negative positive cocci with repeat culture showing no growth to date. Initial cultures likely from contaminant. -Pulmonology consulted regarding newly noted enlarged mediastinal lymph nodes, appreciate recommendations -PT/OT consulted for evaluation and possible placement secondary to progressively worsening generalized weakness Hypertensive urgency, hypertension controlled at this time. History of CAD with CABG History of hypertension -Hypertensive urgency with blood pressure 213/75 and heart rate of 57. Hypertensive urgency has improved and has been controlled since resuming home medication regimen. -Lisinopril and Lasix to continue to be held secondary to acute kidney injury. -Hydralazine was increased to 100 mg 3 times daily and Procardia increased to 60 mg twice a day. Acute on chronic anemia, resolved. -Hemoglobin stable at 11.3 with baseline hemoglobin around 11.5. History of hyperlipidemia -Home medications reviewed and reordered, patient to continue fenofibrate History of CVAs with right-sided deficits -Continue antiplatelet therapy with aspirin 325 mg daily. -Heparin for DVT prophylaxis. -Provide safe and supportive care with assistance as needed. -PT/OT consulted secondary to worsening generalized weakness over the past week. -Fall precautions CODE STATUS: Full code DVT prophylaxis: heparin Discussed with: patient and RN Anticipated discharge date: Pending insurance authorization, likely within the next [address]: [facility] A total of 35 minutes was spent on the care of this complex patient more than 50% of the time was spent in counseling and care coordination. I reviewed the documentation as provided by the JESS above, who is the original author of this note. I agree with the documented assessment and plan, with the following changes: none Objective - Vital Signs Vital signs: Vital Signs Temp 97.7 F 07/02/22 08:04 Pulse 68 07/02/22 08:58 Resp 17 07/02/22 08:04 BP 136/71 07/02/22 08:04 Pulse Ox 91 L 07/02/22 08:04 FiO2 21 06/28/22 08:39 Intake & Output 07/01/22 07/02/22 07/02/22 18:59 06:59 18:59 Output Total 475 Balance -475 Output: Urine 475 Other: Voiding Method Indwelling Catheter - Labs CBC & Chem 7: 07/02/22 04:46 07/05/22 05:49 Labs: Abnormal Lab Results - Last 24 Hours (Table) 07/01/22 07/01/22 07/01/22 Range/Units 11:03 16:52 20:29 RBC (4.40-5.60) X 10*6/uL Hgb (13.0-17.0) g/dL Hct (39.6-50.0) % MCHC (32.0-37.0) g/dL RDW (11.5-14.5) % Sodium (135-145) mmol/L Chloride (96-109) mmol/L Anion Gap (10.00-18.00) mmol/L BUN (9.0-27.0) mg/dL Creatinine (0.6-1.5) mg/dL Est GFR (CKD-EPI)AfAm (60.0-200.0) Est GFR (CKD-EPI)NonAf (60.0-200.0) BUN/Creatinine Ratio (12.00-20.00) Ratio POC Glucose (mg/dL) 156 H 160 H 217 H (70-110) mg/dL Calcium (8.7-10.3) mg/dL Magnesium (1.5-2.4) mg/dL Total Bilirubin (0.30-1.20) mg/dL Total Protein (6.2-8.2) g/dL Albumin (3.8-4.9) g/dL Albumin/Globulin Ratio (1.60-3.17) g/dL 07/02/22 07/02/22 Range/Units 04:46 04:46 RBC 3.48 L (4.40-5.60) X 10*6/uL Hgb 10.3 L (13.0-17.0) g/dL Hct 33.3 L (39.6-50.0) % MCHC 30.9 L (32.0-37.0) g/dL RDW 15.9 H (11.5-14.5) % Sodium 146 H (135-145) mmol/L Chloride 114 H (96-109) mmol/L Anion Gap 6.80 L (10.00-18.00) mmol/L BUN 57.3 H (9.0-27.0) mg/dL Creatinine 2.1 H (0.6-1.5) mg/dL Est GFR (CKD-EPI)AfAm 33.2 L (60.0-200.0) Est GFR (CKD-EPI)NonAf 28.7 L (60.0-200.0) BUN/Creatinine Ratio 27.29 H (12.00-20.00) Ratio POC Glucose (mg/dL) (70-110) mg/dL Calcium 8.6 L (8.7-10.3) mg/dL Magnesium 2.5 H (1.5-2.4) mg/dL Total Bilirubin <0.15 L (0.30-1.20) mg/dL Total Protein 5.5 L (6.2-8.2) g/dL Albumin 3.0 L (3.8-4.9) g/dL Albumin/Globulin Ratio 1.20 L (1.60-3.17) g/dL Microbiology - Last 24 Hours (Table) 06/27/22 06:54 Blood Culture - Preliminary Blood No Growth after 96 hours
[2022-07-02] MEDS: TAMSULOSIN 0.4 MG CAP.ER.24H PO SCH (17:41)
[2022-07-02] MEDS: ASPIRIN 325 MG TAB PO SCH (17:41)
[2022-07-02 21:36] LABS: Glucose,Whole Blood 154 mg/dL (70-110)
[2022-07-03] MEDS: hydrALAZINE HCL 50 MG TAB PO SCH ×4 (00:24→22:44)
[2022-07-03] MEDS: HEPARIN SODIUM,PORCINE/PF 5,000 UNIT/0.5 ML SYRINGE SQ SCH ×3 (00:24→22:44)
[2022-07-03] MEDS: INSULIN ASPART (NovoLOG) 100 UNIT/ML VIAL SQ SCH ×5 (00:25→23:10)
[2022-07-03 06:03] LABS: Glucose,Whole Blood 85 mg/dL (70-110)
[2022-07-03] MEDS: FAMOTIDINE 20 MG TAB PO SCH ×2 (07:02→17:02)
[2022-07-03] MEDS: IPRATROPIUM-ALBUTEROL 3 ML NEB INHALATION SCH ×4 (07:22→21:38)
[2022-07-03] MEDS: FENOFIBRATE 160 MG TAB PO SCH (08:42)
[2022-07-03] MEDS: METOPROLOL SUCCINATE (ER) 100 MG TAB.ER.24H PO SCH (08:42)
[2022-07-03] MEDS: FERROUS SULFATE 325 MG TAB PO SCH (08:42)
[2022-07-03] MEDS: METOPROLOL SUCCINATE (ER) 25 MG TAB.ER.24H PO SCH (08:42)
[2022-07-03 11:16] LABS: Glucose,Whole Blood 163 mg/dL (70-110)
--- NOTE | 2022-07-03 12:42 | P.PN ---
Subjective Patient is seen in follow-up for acute kidney injury on chronic kidney disease. Renal function stable. English catheter placed for urinary retention. On room air. Denies chest pain or shortness of breath Serum creatinine down to 2.1 from peak of 3.3. Baseline creatinine at about 2- 2.2 mg/dL No complaints Objective - Vital Signs Vital signs: Vital Signs Temp 97.2 F L 07/03/22 07:13 Pulse 60 07/03/22 12:01 Resp 17 07/03/22 07:13 BP 126/65 07/03/22 07:13 Pulse Ox 92 L 07/03/22 07:13 FiO2 21 06/28/22 08:39 Intake & Output 07/02/22 07/03/22 07/03/22 18:59 06:59 18:59 Intake Total 480 Output Total 600 1100 Balance -600 -620 Weight 84 kg 84.9 kg Intake: Oral 480 Output: Urine 600 1100 Other: Voiding Method Indwelling Catheter Indwelling Catheter Indwelling Catheter - Exam Patient is awake, comfortable, no acute distress, receiving updraft treatment Examination of the heart S1 and S2 Examination of the lungs bilateral breath sounds are heard Abdomen is soft nontender Examination lower extremities shows no significant edema - Labs CBC & Chem 7: 07/02/22 04:46 07/02/22 04:46 Labs: Abnormal Lab Results - Last 24 Hours (Table) 07/02/22 07/02/22 07/03/22 Range/Units 16:40 21:34 11:15 POC Glucose (mg/dL) 122 H 154 H 163 H (70-110) mg/dL Microbiology - Last 24 Hours (Table) 06/27/22 06:54 Blood Culture - Final Blood No Growth after 144 hours Assessment and Plan Assessment: 1. Acute kidney injury secondary to ATN secondary to infection contrast-induced acute kidney injury, and further worsened with the use of MARIKA inhibitor and diuretics. Also component of urinary retention. Creatinine 2.17 on admission and peaked at 3.3 for this admission, back down to 2.1. No hydronephrosis noted on kidney ultrasound. UA shows 1+ protein without blood. Received IV contrast on 06/25/2022. 2. ?Pneumonia s/p antibiotics. Blood culture positive for diphtheroid. Repeat blood cultures negative 3. Chronic kidney disease stage IIIB/4 with baseline creatinine in the range of 1.5-2 secondary to nephrosclerosis and diabetic kidney disease. Last seen in the office in 2018. 4. Diabetes mellitus. 5. Hypertension with chronic kidney disease. 6. Urinary retention. Has English catheter. Plan: Continue with English catheter Outpatient follow-up for CK D Continue with Flomax
--- NOTE | 2022-07-03 13:29 | P.PN ---
Subjective Progress Note Date: 07/03/22 Hospital Course: Patient is a very pleasant 82-year-old male with a past medical history is CAD with CABG, multiple CVAs with right-sided deficits, hypertension, hyperlipidemia, insulin-dependent diabetes mellitus, stage III chronic kidney disease with baseline creatinine of 2.0, and dementia. He lives at home with and reports walking with a walker. Patient presented to the emergency department with the chief complaint of shortness of breath beginning approximately one week ago and progressively worsening. He arrived via EMS and per review of documentation, patient was initially found to be hypoxic with SpO2 of 84% requiring oxygen supplementation. Patient underwent full evaluation in the emergency department. Chest x-ray was completed and upon review it as showing interstitial edema and blunting of left costophrenic angle concerning for heart failure and pneumonia. EKG showing sinus bradycardia at 57 bpm. Labs completed and reviewed. CBC revealing normocytic anemia with hemoglobin of 12.3 which is at baseline, BMP consistent with stage IIIc daily with BUN of 55, creatinine 2.17, and GFR of 28 with baseline creatinine of 2.0. Coagulation profile revealing an elevated d-dimer of 1.65. CTA chest was completed. Upon review, CTA chest showing no evidence of pulmonary emboli revealing bilateral lower lobe pneumonia and atelectasis with pleural effusions, radiologist also reporting lung abnormalities with enlarged mediastinal lymph nodes which are reportedly new when compared to previous CT completed 06/14/19. Patient started on antibiotics Rocephin and doxycycline for treatment of community-acquired pneumonia and being admitted under our services with consultation to pulmonology. Status post receiving contrast from CTA patient developed an acute kidney injury on stage III chronic kidney disease. Patient was started on IV fluid hydration and all nephrotoxic medications were discontinued at this time. Nephrology consulted. Currently has a English catheter for urinary retention. Patient pending insurance authorization for rehab. Subjective: Patient seen and examined at bedside. No acute events overnight. He denies any chest pain, shortness of breath, abdominal pain, nausea, vomiting, diarrhea, or constipation. [place] to have a English catheter in place. Pertinent positives and negatives as discussed above, a complete review of s ystems was performed and all other systems are negative. Vitals Signs Reviewed. General: nontoxic, no distress, appears at stated age Derm: warm, dry Head: atraumatic, normocephalic, symmetric Eyes: EOMI, no lid lag, anicteric sclera Mouth: no lip lesion, mucus membranes moist Cardiovascular: S1S2 reg, no murmur Lungs: Bilateral scattered rhonchi, no accessory muscle use, supplemental oxygen Abdominal: soft, nontender to palpation, no guarding, no appreciable organomegaly Ext: no gross muscle atrophy, no edema, no contractures, 4/5 strength in right upper extremity, right lower extremity, chronic Neuro: CN II-XI grossly intact, no focal neuro deficits Psych: Alert, oriented, appropriate affect Assessment and Plan: Acute kidney injury on chronic kidney disease stage III, likely multifactorial resulting from current infectious process along with urinary retention and contrast induced acute kidney injury. Urinary retention, English catheter placed -English catheter to remain in place upon discharge. Also on Flomax -Creatinine improving -Hold nephrotoxic medications including lisinopril and Lasix -Urinalysis negative for infection. -Renal ultrasound negative for hydronephrosis and showing no evidence of obstructive uropathy. Ultrasound revealing increased echotexture to kidneys suggestive of medical renal disease -Nephrology following Bilateral lower lobe pneumonia, completed course of doxycycline 5 days and ceftriaxone 3 days Bacteremia, ruled out repeat cultures showing no growth, initial culture believed to be contaminant Acute respiratory failure with hypoxia secondary to above Enlarged mediastinal lymph nodes, newly noted on CT Generalized weakness, progressively worsened 1 week -Supplemental oxygen -Telemetry monitoring. -Monitor Pulse-oximetry -Duonebs scheduled and as needed for SOB and/or wheezing -Incentive Spirometry -Pulmonology consulted regarding newly noted enlarged mediastinal lymph nodes, appreciate recommendations -PT/OT consulted for evaluation and possible placement secondary to progressively worsening generalized weakness Hypertensive urgency, hypertension controlled at this time. History of CAD with CABG History of hypertension -Lisinopril and Lasix to continue to be held secondary to acute kidney injury. -Hydralazine was increased to 100 mg 3 times daily and Procardia increased to 60 mg twice a day. Acute on chronic anemia, resolved. -Hemoglobin stable with baseline hemoglobin around 11.5. History of hyperlipidemia -Home medications reviewed and reordered, patient to continue fenofibrate History of CVAs with right-sided deficits -Continue antiplatelet therapy with aspirin 325 mg daily. -Heparin for DVT prophylaxis. -Provide safe and supportive care with assistance as needed. -PT/OT consulted secondary to worsening generalized weakness over the past week. -Fall precautions DVT ppx: Subcutaneous heparin Code status: Full code Anticipated discharge place: [facility], pending authorization Anticipated discharge time: In 1-2 days Objective - Vital Signs Vital signs: Vital Signs Temp 97.2 F L 07/03/22 07:13 Pulse 60 07/03/22 12:01 Resp 17 07/03/22 07:13 BP 126/65 07/03/22 07:13 Pulse Ox 92 L 07/03/22 07:13 FiO2 21 06/28/22 08:39 Intake & Output 07/02/22 07/03/22 07/03/22 18:59 06:59 18:59 Intake Total 480 Output Total 600 1100 Balance -600 -620 Weight 84 kg 84.9 kg Intake: Oral 480 Output: Urine 600 1100 Other: Voiding Method Indwelling Catheter Indwelling Catheter Indwelling Catheter - Labs CBC & Chem 7: 07/02/22 04:46 07/02/22 04:46 Labs: Abnormal Lab Results - Last 24 Hours (Table) 07/02/22 07/02/22 07/03/22 Range/Units 16:40 21:34 11:15 POC Glucose (mg/dL) 122 H 154 H 163 H (70-110) mg/dL Microbiology - Last 24 Hours (Table) 06/27/22 06:54 Blood Culture - Final Blood No Growth after 144 hours
[2022-07-03 16:58] LABS: Glucose,Whole Blood 280 mg/dL (70-110)
[2022-07-03] MEDS: ASPIRIN 325 MG TAB PO SCH (17:02)
[2022-07-03] MEDS: TAMSULOSIN 0.4 MG CAP.ER.24H PO SCH (17:03)
[2022-07-03 21:03] LABS: Glucose,Whole Blood 145 mg/dL (70-110)
[2022-07-04 06:28] LABS: Glucose,Whole Blood 253 mg/dL (70-110)
[2022-07-04] MEDS: FAMOTIDINE 20 MG TAB PO SCH ×2 (06:59→17:20)
[2022-07-04] MEDS: INSULIN ASPART (NovoLOG) 100 UNIT/ML VIAL SQ SCH ×4 (07:00→20:38)
[2022-07-04] MEDS: IPRATROPIUM-ALBUTEROL 3 ML NEB INHALATION SCH ×4 (07:11→20:51)
[2022-07-04] MEDS: FENOFIBRATE 160 MG TAB PO SCH (09:02)
[2022-07-04] MEDS: HEPARIN SODIUM,PORCINE/PF 5,000 UNIT/0.5 ML SYRINGE SQ SCH ×2 (09:02→20:46)
[2022-07-04] MEDS: METOPROLOL SUCCINATE (ER) 100 MG TAB.ER.24H PO SCH (09:02)
[2022-07-04] MEDS: METOPROLOL SUCCINATE (ER) 25 MG TAB.ER.24H PO SCH (09:02)
[2022-07-04] MEDS: hydrALAZINE HCL 50 MG TAB PO SCH ×3 (09:02→20:45)
--- NOTE | 2022-07-04 09:18 | XR ---
EXAMINATION TYPE: XR chest 1V portable DATE OF EXAM: 07/04/2022 Comparison: 06/25/2022 Clinical History: 82-year-old male hypoxia Findings: Median sternotomy wires are present post CABG clips. Left heart margin obscured by adjacent pleural p arenchymal opacity. Left pleural effusion shows slight interval increase. Patchy opacity extends to t he left midlung. Mild interstitial changes at the right mid and lower lung slightly increased. Impression: Moderate left pleural effusion with adjacent atelectasis and/or consolidation shows slight interval i ncrease. Interstitial densities particularly at the right base are also increasing. Correlate for pul monary vascular congestion.
[2022-07-04 11:07] LABS: Glucose,Whole Blood 75 mg/dL (70-110)
[2022-07-04] MEDS ORDERED: FUROSEMIDE 10 MG/ML 4 ML VIAL IV STA (11:27)
--- NOTE | 2022-07-04 14:25 | P.PN ---
Subjective Patient is seen in follow-up for acute kidney injury on chronic kidney disease. Renal function stable. English catheter placed for urinary retention. On room air. Denies chest pain or shortness of breath Serum creatinine down to 2.1 from peak of 3.3. Baseline creatinine at about 2- 2.2 mg/dL No complaints Objective - Vital Signs Vital signs: Vital Signs Temp 97.3 F L 07/04/22 13:53 Pulse 58 L 07/04/22 13:53 Resp 16 07/04/22 13:53 BP 148/67 07/04/22 13:53 Pulse Ox 97 07/04/22 13:53 FiO2 21 07/04/22 07:13 Intake & Output 07/03/22 07/04/22 07/04/22 18:59 06:59 18:59 Output Total 300 500 Balance -300 -500 Weight 84 kg Output: Urine 300 500 Other: Voiding Method Indwelling Catheter Indwelling Catheter Indwelling Catheter # Bowel Movements 1 1 - Exam Patient is awake, comfortable, no acute distress, receiving updraft treatment Examination of the heart S1 and S2 Examination of the lungs bilateral breath sounds are heard Abdomen is soft nontender Examination lower extremities shows no significant edema - Labs CBC & Chem 7: 07/02/22 04:46 07/02/22 04:46 Labs: Abnormal Lab Results - Last 24 Hours (Table) 07/03/22 07/03/22 07/04/22 Range/Units 16:57 21:02 06:26 POC Glucose (mg/dL) 280 H 145 H 253 H (70-110) mg/dL Assessment and Plan Assessment: 1. Acute kidney injury secondary to ATN secondary to infection contrast-induced acute kidney injury, and further worsened with the use of MARIKA inhibitor and diuretics. Also component of urinary retention. Creatinine 2.17 on admission and peaked at 3.3 for this admission, back down to 2.1. No hydronephrosis noted on kidney ultrasound. UA shows 1+ protein without blood. Received IV contrast on 06/25/2022. 2. ?Pneumonia s/p antibiotics. Blood culture positive for diphtheroid. Repeat blood cultures negative 3. Chronic kidney disease stage IIIB/4 with baseline creatinine in the range of 1.5-2 secondary to nephrosclerosis and diabetic kidney disease. Last seen in the office in 2018. 4. Diabetes mellitus. 5. Hypertension with chronic kidney disease. 6. Urinary retention. Has English catheter. Plan: Continue with English catheter Outpatient follow-up for CK D Continue with Flomax Add oral diuretics
--- NOTE | 2022-07-04 15:56 | P.PN ---
Subjective Progress Note Date: 07/04/22 Hospital Course: Patient is a very pleasant 82-year-old male with a past medical history is CAD with CABG, multiple CVAs with right-sided deficits, hypertension, hyperlipidemia, insulin-dependent diabetes mellitus, stage III chronic kidney disease with baseline creatinine of 2.0, and dementia. He lives at home with and reports walking with a walker. Patient presented to the emergency department with the chief complaint of shortness of breath beginning approximately one week ago and progressively worsening. He arrived via EMS and per review of documentation, patient was initially found to be hypoxic with SpO2 of 84% requiring oxygen supplementation. Patient underwent full evaluation in the emergency department. Chest x-ray was completed and upon review it as showing interstitial edema and blunting of left costophrenic angle concerning for heart failure and pneumonia. EKG showing sinus bradycardia at 57 bpm. Labs completed and reviewed. CBC revealing normocytic anemia with hemoglobin of 12.3 which is at baseline, BMP consistent with stage IIIc daily with BUN of 55, creatinine 2.17, and GFR of 28 with baseline creatinine of 2.0. Coagulation profile revealing an elevated d-dimer of 1.65. CTA chest was completed. Upon review, CTA chest showing no evidence of pulmonary emboli revealing bilateral lower lobe pneumonia and atelectasis with pleural effusions, radiologist also reporting lung abnormalities with enlarged mediastinal lymph nodes which are reportedly new when compared to previous CT completed 06/14/19. Patient started on antibiotics Rocephin and doxycycline for treatment of community-acquired pneumonia and being admitted under our services with consultation to pulmonology. Status post receiving contrast from CTA patient developed an acute kidney injury on stage III chronic kidney disease. Patient was started on IV fluid hydration and all nephrotoxic medications were discontinued at this time. Nephrology consulted. Currently has a English catheter for urinary retention. Patient pending insurance authorization for rehab. Subjective: Patient seen and examined at bedside. Overnight patient was having appears of hypoxia, also not using his oxygen. He was started back on 4 L of oxygen. He currently denies any chest pain, shortness of breath, cough, palpitations, abdominal pain, diarrhea, constipation. Continues to have English catheter in place. Pertinent positives and negatives as discussed above, a complete review of sys tems was performed and all other systems are negative. Vitals Signs Reviewed. General: nontoxic, no distress, appears at stated age Derm: warm, dry Head: atraumatic, normocephalic, symmetric Eyes: EOMI, no lid lag, anicteric sclera Mouth: no lip lesion, mucus membranes moist Cardiovascular: S1S2 reg, no murmur Lungs: Bilateral scattered rhonchi, no accessory muscle use, supplemental oxygen Abdominal: soft, nontender to palpation, no guarding, no appreciable organomegaly Ext: no gross muscle atrophy, no edema, no contractures, 4/5 strength in right upper extremity, right lower extremity, chronic Neuro: CN II-XI grossly intact, no focal neuro deficits Psych: Alert, oriented, appropriate affect Assessment and Plan: Acute on chronic hypoxic respiratory failure Volume overload -Given 1 times Lasix 40 IV -Restarted on oral diuretics per nephrology Acute kidney injury on chronic kidney disease stage III, likely multifactorial resulting from current infectious process along with urinary retention and contrast induced acute kidney injury. Urinary retention, English catheter placed -English catheter to remain in place upon discharge. Also on Flomax -Creatinine improving -Hold nephrotoxic medications including lisinopril -Urinalysis negative for infection. -Renal ultrasound negative for hydronephrosis and showing no evidence of obstructive uropathy. Ultrasound revealing increased echotexture to kidneys suggestive of medical renal disease -Nephrology following Bilateral lower lobe pneumonia, completed course of doxycycline 5 days and ceftriaxone 3 days Bacteremia, ruled out repeat cultures showing no growth, initial culture believed to be contaminant Enlarged mediastinal lymph nodes, newly noted on CT Generalized weakness, progressively worsened 1 week -Telemetry monitoring. -Duonebs scheduled and as needed -Pulmonology consulted regarding newly noted enlarged mediastinal lymph nodes, appreciate recommendations -PT/OT consulted for evaluation and possible placement secondary to progressively worsening generalized weakness Hypertensive urgency, hypertension controlled at this time. History of CAD with CABG History of hypertension -Lisinopril and Lasix to continue to be held secondary to acute kidney injury. -Hydralazine was increased to 100 mg 3 times daily and Procardia increased to 60 mg twice a day. Acute on chronic anemia, resolved. -Hemoglobin stable with baseline hemoglobin around 11.5. History of hyperlipidemia -Home medications reviewed and reordered, patient to continue fenofibrate History of CVAs with right-sided deficits -Continue antiplatelet therapy with aspirin 325 mg daily. -Heparin for DVT prophylaxis. -Provide safe and supportive care with assistance as needed. -PT/OT consulted secondary to worsening generalized weakness over the past week. -Fall precautions DVT ppx: Subcutaneous heparin Code status: Full code Anticipated discharge place: [facility] Anticipated discharge time: likely tomorrow Objective - Vital Signs Vital signs: Vital Signs Temp 97.3 F L 07/04/22 13:53 Pulse 58 L 07/04/22 13:53 Resp 16 07/04/22 13:53 BP 148/67 07/04/22 13:53 Pulse Ox 97 07/04/22 13:53 FiO2 21 07/04/22 07:13 Intake & Output 07/03/22 07/04/22 07/04/22 18:59 06:59 18:59 Output Total 300 500 Balance -300 -500 Weight 84 kg Output: Urine 300 500 Other: Voiding Method Indwelling Catheter Indwelling Catheter Indwelling Catheter # Bowel Movements 1 1 - Labs CBC & Chem 7: 07/02/22 04:46 07/02/22 04:46 Labs: Abnormal Lab Results - Last 24 Hours (Table) 07/03/22 07/03/22 07/04/22 Range/Units 16:57 21:02 06:26 POC Glucose (mg/dL) 280 H 145 H 253 H (70-110) mg/dL
[2022-07-04 16:26] LABS: Glucose,Whole Blood 168 mg/dL (70-110)
[2022-07-04] MEDS: TAMSULOSIN 0.4 MG CAP.ER.24H PO SCH (17:20)
[2022-07-04] MEDS: ASPIRIN 325 MG TAB PO SCH (17:20)
[2022-07-04 20:25] LABS: Glucose,Whole Blood 123 mg/dL (70-110)
[2022-07-05 06:08] LABS: Glucose,Whole Blood 101 mg/dL (70-110)
[2022-07-05] MEDS: INSULIN ASPART (NovoLOG) 100 UNIT/ML VIAL SQ SCH ×3 (06:33→16:44)
[2022-07-05 07:21] VITALS: RESP 17
[2022-07-05] MEDS: IPRATROPIUM-ALBUTEROL 3 ML NEB INHALATION SCH ×3 (07:54→15:54)
[2022-07-05] MEDS: FAMOTIDINE 20 MG TAB PO SCH ×2 (08:24→16:45)
[2022-07-05] MEDS: FERROUS SULFATE 325 MG TAB PO SCH (08:24)
[2022-07-05] MEDS: FENOFIBRATE 160 MG TAB PO SCH (08:24)
[2022-07-05] MEDS: hydrALAZINE HCL 50 MG TAB PO SCH ×2 (08:24→16:45)
[2022-07-05] MEDS: HEPARIN SODIUM,PORCINE/PF 5,000 UNIT/0.5 ML SYRINGE SQ SCH (08:25)
[2022-07-05] MEDS ORDERED: FUROSEMIDE 40 MG TAB PO SCH (09:00)
[2022-07-05 09:40] LABS: African American GFR (CKD) 29.8 (60.0-200.0); Anion Gap 8.1 mmol/L (10.00-18.00); BUN/Creat Ratio 26.39 Ratio (12.00-20.00); Blood Urea Nitrogen 60.7 mg/dL (9.0-27.0); Calcium 8.4 mg/dL (8.7-10.3); Carbon Dioxide 23.9 mmol/L (20.0-27.5); Non-African American GFR(CKD) 25.7 (60.0-200.0); Potassium 5.1 mmol/L (3.5-5.5)
[2022-07-05] MEDS: METOPROLOL SUCCINATE (ER) 25 MG TAB.ER.24H PO SCH (10:40)
[2022-07-05] MEDS: METOPROLOL SUCCINATE (ER) 100 MG TAB.ER.24H PO SCH (10:40)
[2022-07-05 12:17] LABS: Glucose,Whole Blood 130 mg/dL (70-110)
[2022-07-05] MEDS ORDERED: NYSTATIN 100,000 UNIT/GM POWD 15 GM TOPICAL SCH (13:15)
--- NOTE | 2022-07-05 14:37 | P.PN ---
Subjective Patient is seen in follow-up for acute kidney injury on chronic kidney disease. Renal function stable. English catheter placed for urinary retention. On room air. Denies chest pain or shortness of breath Serum creatinine down to 2.1 from peak of 3.3. Baseline creatinine at about 2- 2.2 mg/dL No complaints Started on scheduled dose of diuretics. Objective - Vital Signs Vital signs: Vital Signs Temp 97.3 F L 07/05/22 07:20 Pulse 56 L 07/05/22 11:26 Resp 17 07/05/22 07:20 BP 135/58 07/05/22 07:20 Pulse Ox 97 07/05/22 07:55 FiO2 21 07/04/22 07:13 Intake & Output 07/04/22 07/05/22 07/05/22 18:59 06:59 18:59 Output Total 1100 300 Balance -1100 -300 Weight 84.5 kg Output: Urine 1100 300 Other: Voiding Method Indwelling Catheter Indwelling Catheter - Exam Patient is awake, comfortable, no acute distress, receiving updraft treatment Examination of the heart S1 and S2 Examination of the lungs bilateral breath sounds are heard Abdomen is soft nontender Examination lower extremities shows 1+ edema - Labs CBC & Chem 7: 07/02/22 04:46 07/05/22 05:49 Labs: Abnormal Lab Results - Last 24 Hours (Table) 07/04/22 07/04/22 07/05/22 Range/Units 16:24 20:23 05:49 Sodium 146 H (135-145) mmol/L Chloride 114 H (96-109) mmol/L Anion Gap 8.10 L (10.00-18.00) mmol/L BUN 60.7 H (9.0-27.0) mg/dL Creatinine 2.3 H (0.6-1.5) mg/dL Est GFR (CKD-EPI)AfAm 29.8 L (60.0-200.0) Est GFR (CKD-EPI)NonAf 25.7 L (60.0-200.0) BUN/Creatinine Ratio 26.39 H (12.00-20.00) Ratio POC Glucose (mg/dL) 168 H 123 H (70-110) mg/dL Calcium 8.4 L (8.7-10.3) mg/dL 07/05/22 Range/Units 12:15 Sodium (135-145) mmol/L Chloride (96-109) mmol/L Anion Gap (10.00-18.00) mmol/L BUN (9.0-27.0) mg/dL Creatinine (0.6-1.5) mg/dL Est GFR (CKD-EPI)AfAm (60.0-200.0) Est GFR (CKD-EPI)NonAf (60.0-200.0) BUN/Creatinine Ratio (12.00-20.00) Ratio POC Glucose (mg/dL) 130 H (70-110) mg/dL Calcium (8.7-10.3) mg/dL Assessment and Plan Assessment: 1. Acute kidney injury secondary to ATN secondary to infection contrast-induced acute kidney injury, and further worsened with the use of MARIKA inhibitor and diuretics. Also component of urinary retention. Creatinine 2.17 on admission and peaked at 3.3 for this admission, back down to 2.1. No hydronephrosis noted on kidney ultrasound. UA shows 1+ protein without blood. Received IV contrast on 06/25/2022. 2. ?Pneumonia s/p antibiotics. Blood culture positive for diphtheroid. Repeat blood cultures negative 3. Chronic kidney disease stage IIIB/4 with baseline creatinine in the range of 1.5-2 secondary to nephrosclerosis and diabetic kidney disease. Last seen in the office in 2018. 4. Diabetes mellitus. 5. Hypertension with chronic kidney disease. 6. Urinary retention. Has English catheter. 7. Mild volume overload Plan: Continue with English catheter Outpatient follow-up for CK D Continue with Flomax Continue oral diuretics
[2022-07-05 15:09] VITALS: BP 165/66; TEMP 95.9
--- NOTE | 2022-07-05 15:11 | P.DS ---
Providers Date of admission: 06/25/22 06:22 Expected date of discharge: 07/05/22 Attending physician: Stephan Watkins MD Consults: 06/25/22 17:44 Consult Physician Routine Consulting Provider: Arron Wilde Consult Reason/Comments: Enlarged mediastinal lymph nodes reported new in comparison to prev CT Do you want consulting provider notified?: Yes 06/26/22 16:45 Consult Physician Routine Consulting Provider: Porfirio Motley Consult Reason/Comments: Acute kidney injury on stage III CKD Do you want consulting provider notified?: Yes 06/28/22 12:37 Consult Physician Routine Consulting Provider: Yo Dunn Consult Reason/Comments: urinary retention. English placed. Do you want consulting provider notified?: Yes Primary care physician: Michele Gresham MD Hospital Course: Discharge Diagnosis: Acute on chronic hypoxic respiratory failure Bilateral lower lobe pneumonia Bacteremia, likely contaminant Enlarged mediastinal lymph nodes Generalized weakness Acute kidney injury on chronic kidney disease Urinary retention Hypertensive urgency History of coronary artery disease with CABG History of hyperlipidemia History of CVAs with right-sided deficit Hospital Course: 82-year-old male with a past medical history is CAD with CABG, multiple CVAs with right-sided deficits, hypertension, hyperlipidemia, insulin-dependent diabetes mellitus, stage III chronic kidney disease with baseline creatinine of 2.0, and dementia. He lives at home with and reports walking with a walker. Patient presented to the emergency department with the chief complaint of shortness of breath beginning approximately one week ago and progressively worsening. He arrived via EMS and per review of documentation, patient was initially found to be hypoxic with SpO2 of 84% requiring oxygen supplementation. Chest x-ray was completed and upon review it as showing interstitial edema and blunting of left costophrenic angle concerning for heart failure and pneumonia. EKG showing sinus bradycardia at 57 bpm. Labs completed and reviewed. CBC revealing normocytic anemia with hemoglobin of 12.3 which is at baseline, BMP co nsistent with stage IIIc daily with BUN of 55, creatinine 2.17, and GFR of 28 with baseline creatinine of 2.0. Coagulation profile revealing an elevated d- dimer of 1.65. CTA chest was completed. Upon review, CTA chest showing no evidence of pulmonary emboli revealing bilateral lower lobe pneumonia and atelectasis with pleural effusions, radiologist also reporting lung abnormalities with enlarged mediastinal lymph nodes which are reportedly new when compared to previous CT completed 06/14/19. Patient started on antibiotics Rocephin and doxycycline for treatment of community-acquired pneumonia and being admitted under our services with consultation to pulmonology. Status post receiving contrast from CTA patient developed an acute kidney injury on stage III chronic kidney disease. Patient was started on IV fluid hydration and all nephrotoxic medications were discontinued at this time. Nephrology consulted. Acute kidney injury likely multifactorial with urinary retention and contrast- induced nephropathy. Renal ultrasound was negative for hydronephrosis and showed no evidence of obstructive uropathy, findings suggestive of medical renal disease. English catheter discontinued, patient on Flomax. Creatinine stable at discharge. He also had positive blood cultures, growing diptheroids, likely contaminant. Repeat cultures negative. Respiratory function stable on 2-3 L nasal cannula at discharge. Patient seen and examined at bedside. Vital signs reviewed and stable. General: nontoxic, no distress, appears at stated age Derm: warm, dry Head: atraumatic, normocephalic, symmetric Eyes: EOMI, no lid lag, anicteric sclera Mouth: no lip lesion, mucus membranes moist Cardiovascular: S1S2 reg, no murmur Lungs: Bilateral scattered rhonchi, no accessory muscle use, supplemental oxygen Abdominal: soft, nontender to palpation, no guarding, no appreciable organomegaly Ext: no gross muscle atrophy, no edema, no contractures, 4/5 strength in right upper extremity, right lower extremity, chronic Neuro: CN II-XI grossly intact, no focal neuro deficits Psych: Alert, oriented, appropriate affect A total of 45 minutes of time were spent preparing this complex [facility]. Patient was discharged on 07/05/22. 15:01. Patient Condition at Discharge: Stable Plan - Discharge Summary New Discharge Prescriptions: New hydrALAZINE HCL [Apresoline] 100 mg PO TID tab Tamsulosin [Flomax] 0.4 mg PO PC-SUPPER cap Furosemide [Lasix] 40 mg PO DAILY tab Melatonin 3 mg PO HS PRN tab PRN Reason: Insomnia INSULIN ASPART (NovoLOG) [NovoLOG (formulary)] 0 unit SQ ACHS each Metoprolol Succinate (ER) [Toprol XL] 50 mg PO DAILY tab Acetaminophen Tab [Tylenol] 650 mg PO Q6HR PRN tab PRN Reason: Mild Pain Or Fever > 100.5 Ipratropium-Albuterol Nebulize [Duoneb 0.5 mg-3 mg/3 ml Soln] 3 ml INHALATION Q6HR PRN each PRN Reason: Shortness Of Breath Or Wheezing Nystatin 100,000 Unit/gm Powd [Mycostatin Powder] 1 applic TOPICAL BID #0 each Famotidine [Pepcid] 10 mg PO BID-W/MEALS tab NIFEdipine XL [Procardia XL] 60 mg PO Q12HR tab Continue Fenofibrate 160 mg PO DAILY Ubidecarenone [Co Q-10] 200 mg PO W/SUPPER Cholecalciferol [Vitamin D3 (25 Mcg = 1000 Iu)] 25 mcg PO W/SUPPER Cetirizine HCl [Zyrtec] 10 mg PO DAILY levETIRAcetam [Keppra] 750 mg PO BID-W/MEALS Ferrous Sulfate [Iron (65 MG Elemental)] 325 mg PO MOWEFR Aspirin EC [Ecotrin] 325 mg PO W/SUPPER Discontinued Metoprolol Succinate [Toprol XL] 100 mg PO DAILY NIFEdipine [NIFEdipine ER] 90 mg PO DAILY Insulin Glargine,Hum.rec.anlog [Lantus Solostar Pen] 12 units SQ HS Metoprolol Succinate (ER) [Toprol XL] 25 mg PO DAILY tab.er.24h Famotidine [Pepcid] 10 mg PO BID-W/MEALS ramipriL 2.5 mg PO DAILY Furosemide [Lasix] 20 mg PO DAILY hydrALAZINE HCL [Apresoline] 100 mg PO BID-W/MEALS Discharge Medication List Fenofibrate 160 mg PO DAILY 08/26/16 [History] Ubidecarenone [Co Q-10] 200 mg PO W/SUPPER 08/26/16 [History] Cholecalciferol [Vitamin D3 (25 Mcg = 1000 Iu)] 25 mcg PO W/SUPPER 07/26/19 [History] Aspirin EC [Ecotrin] 325 mg PO W/SUPPER 03/14/21 [History] Cetirizine HCl [Zyrtec] 10 mg PO DAILY 03/14/21 [History] levETIRAcetam [Keppra] 750 mg PO BID-W/MEALS 03/14/21 [History] Ferrous Sulfate [Iron (65 MG Elemental)] 325 mg PO MOWEFR 06/25/22 [History] Acetaminophen Tab [Tylenol] 650 mg PO Q6HR PRN tab 07/05/22 [Rx] Famotidine [Pepcid] 10 mg PO BID-W/MEALS tab 07/05/22 [Rx] Furosemide [Lasix] 40 mg PO DAILY tab 07/05/22 [Rx] INSULIN ASPART (NovoLOG) [NovoLOG (formulary)] 0 unit SQ ACHS each 07/05/22 [Rx] Ipratropium-Albuterol Nebulize [Duoneb 0.5 mg-3 mg/3 ml Soln] 3 ml INHALATION Q6HR PRN each 07/05/22 [Rx] Melatonin 3 mg PO HS PRN tab 07/05/22 [Rx] Metoprolol Succinate (ER) [Toprol XL] 50 mg PO DAILY tab 07/05/22 [Rx] NIFEdipine XL [Procardia XL] 60 mg PO Q12HR tab 07/05/22 [Rx] Nystatin 100,000 Unit/gm Powd [Mycostatin Powder] 1 applic TOPICAL BID #0 each 07/05/22 [Rx] Tamsulosin [Flomax] 0.4 mg PO PC-SUPPER cap 07/05/22 [Rx] hydrALAZINE HCL [Apresoline] 100 mg PO TID tab 07/05/22 [Rx] Follow up Appointment(s)/Referral(s): Michele Gresham MD [Primary Care Provider] - 1-2 days Patient Instructions/Handouts: Community Acquired Pneumonia (DC) Activity/Diet/Wound Care/Special Instructions: Please see your PCP as soon as possible. Discharge Disposition: TRANSFER TO SNF/ECF
[2022-07-05 16:12] VITALS: PULSE 64
[2022-07-05 16:34] LABS: Glucose,Whole Blood 175 mg/dL (70-110)
[2022-07-05] MEDS: TAMSULOSIN 0.4 MG CAP.ER.24H PO SCH (16:45)
[2022-07-05] MEDS: ASPIRIN 325 MG TAB PO SCH (16:45)
[2022-07-06] MEDS ORDERED: METOPROLOL SUCCINATE (ER) 50 MG TAB.ER.24H PO SCH (09:00)
--- NOTE | 2022-07-26 07:36 | CDI ---
Documentation Clarification Form Date: 07/26/2022 6:32:58 AM From: Candis Norris Admit Date: 06/25/2022 6:22:00 AM Patient Name: Oliver Weiner Visit Number: [id number] Discharge Date: 07/05/2022 5:39:00 PM ATTENTION: The Clinical Documentation Specialists (CDI) and [facility] Coding Staff appreciate your assistance in clarifying documentation. Please respond to the clarification below the line at the bottom and electronically sign. The CDI & [facility] Coding staff will review the response and follow-up if needed. Please note: Queries are made part of the Legal Health Record. If you have any questions, please contact the author of this message via ITS. Dr. Nixon Gallagher Sepsis due to pneumonia is documented in PN's 06/27, 06/28 and 06/29, which may lack sufficient clinical evidence/support in the medical record. Additional clarification is requested. Per DCS Bacteremia likely a contaminant is documented. History/Risk Factors: Patient with pneumonia, blood culture positive for Diphtheroid. Patient with ATN contrast induced and CKD 3b, CAD, CHF HTN urgency. Clinical Indicators: 94.7 F, 58 bpm, 18, 164/60, 84% RA , WBC's 7.9 Lactic acid 0.7 Treatment: Rocephin for pneumonia Please clarify if sepsis is a valid diagnosis? [ ] Yes, sepsis is present please add clinical support: [ ] No, sepsis is ruled out [ ] Other (please specify diagnosis) [ x] Unable to determine MTDD
== END 2022-07-05 17:39 | DRG 193 ==
LOC: EC 02:45 → 4SSUR 06:22
PROVIDERS: ADMIT Internal Medicine; ATTEND Internal Medicine
DX: J18.9 Pneumonia, unspecified organism (principal); J96.21 Acute and chronic respiratory failure with hypoxia; N17.0 Acute kidney failure with tubular necrosis; J98.11 Atelectasis; I13.0 Hypertensive heart and chronic kidney disease with heart failure and stage 1 through stage 4 chronic kidney disease, or unspecified chronic kidney disease; I69.351 Hemiplegia and hemiparesis following cerebral infarction affecting right dominant side; I25.2 Old myocardial infarction; I50.9 Heart failure, unspecified; D63.1 Anemia in chronic kidney disease; E11.22 Type 2 diabetes mellitus with diabetic chronic kidney disease; E78.5 Hyperlipidemia, unspecified; F03.90 Unspecified dementia, unspecified severity, without behavioral disturbance, psychotic disturbance, mood disturbance, and anxiety; Z87.891 Personal history of nicotine dependence; I16.0 Hypertensive urgency; N18.32 Chronic kidney disease, stage 3b; R79.1 Abnormal coagulation profile; M19.90 Unspecified osteoarthritis, unspecified site; Z20.822 Contact with and (suspected) exposure to COVID-19; I25.10 Atherosclerotic heart disease of native coronary artery without angina pectoris; R59.0 Localized enlarged lymph nodes; T50.8X5A Adverse effect of diagnostic agents, initial encounter; R33.9 Retention of urine, unspecified; N14.11 Contrast-induced nephropathy; Z71.3 Dietary counseling and surveillance; Z79.02 Long term (current) use of antithrombotics/antiplatelets; Z79.899 Other long term (current) drug therapy; Z79.4 Long term (current) use of insulin; Z28.310 Unvaccinated for COVID-19; Z88.1 Allergy status to other antibiotic agents; Z88.0 Allergy status to penicillin; Z88.8 Allergy status to other drugs, medicaments and biological substances; Z85.828 Personal history of other malignant neoplasm of skin; Z79.82 Long term (current) use of aspirin; Z87.01 Personal history of pneumonia (recurrent); Z95.1 Presence of aortocoronary bypass graft
CPT/HCPCS: 36415; 71045; 71046; 71275; 76770; 80048; 80053; 81001; 82803; 83605; 83735; 83880; 84145; 84484; 85025; 85027; 85379; 85610; 85730; 87040; 87086; 87635; 87636; 93005; 94640; 94760; 96372; 96374; 96375; 99285